=== PATIENT | male | born 1955 | race Caucasian/White ===

== ENCOUNTER → 2018-04-14 14:34 | Outpatient (CLI) | payer OTHER, SELFPAY ==
[2018-04-14 14:52] LABS: International Normalized Ratio 2.6
== END ==
PROVIDERS: Family Provider Family Medicine; PCP Family Medicine; Visit Provider Family Medicine
DX: I48.91 Unspecified atrial fibrillation (principal)
CPT/HCPCS: 85610

== ENCOUNTER → 2018-04-14 14:53 | Outpatient (CLI) | payer OTHER, SELFPAY ==
--- NOTE | 2018-04-14 14:58 | VDLE_ITS ---
Reason For Study: LLE pain RIGHT LEFT CFV is compressible, spontaneous, phasic, GSV is normal. competent and demonstrates normal CFV is compressible, spontaneous, phasic, augmentation. competent, and demonstrates normal Procedure augmentation. Exam performed in department. FV is compressible, spontaneous, phasic, The exam was diagnostic. competent and demonstrates normal A preliminary report was called and/or faxed augmentation. to Dr. Ozuna @ 3:25 pm @ [phone]. POP V is compressible, spontaneous, phasic, PT is currently on anticoagulation competent and demonstrates normal (warfarin). augmentation. T/P Trunk is compressible. PTV is compressible. LT PerV is compressible. NON vascular structure noted in the left medial mid calf area measuring 2.0 x 0.5 cm sag view. Interpretation Summary Deep veins of the left lower extremity are patent and compressible segmentally. There is no evidence of left lower extremity deep vein thrombosis. Valvular competence appears intact within the proximal deep venous system on the left . The left greater saphenous vein appears patent and compressible segmentally. A non-vascular structure is noted in the soft tissues of the left medial calf, measuring 2.0 cm x 2.5 cm. This may represent a hematoma or seroma. Clinical correlation is advised. Ordering Physician: Jah Ozuna Referring Physician: Jah Ozuna Performed By: Suzan Marquez, MELO, RVT
== END ==
PROVIDERS: Family Provider Internal Medicine; PCP Internal Medicine; Visit Provider Family Medicine
DX: M79.662 Pain in left lower leg (principal)
CPT/HCPCS: 93971

== ENCOUNTER 2018-09-13 11:39 | Emergency (ER) | payer OTHER, SELFPAY ==
[2018-09-13 11:41] VITALS: BP 118/72; PULSE 67; RESP 14; TEMP 36.6; O2SAT 95; BMI 32.8
--- NOTE | 2018-09-13 12:09 | RAD_ITS ---
STUDY: X-RAY CHEST REASON FOR EXAM: Male, 62 years old. Chest pain. TECHNIQUE: AP portable upright view of the chest on 2 films. COMPARISON: Portable AP upright chest x-ray March 17, 2016 FINDINGS: Small calcified granuloma again seen in the lateral inferior right base The lungs are otherwise clear and expanded. There is no demonstrated pleural abnormality. There is moderate cardiac enlargement. Sternal cerclage wires are present from a prior sternotomy. Normal mediastinum and dominick. Normal visualized pulmonary arteries. There is stable mild atherosclerotic calcification of the aortic arch, as well as calcification at the right carotid artery bifurcation. There are stable multilevel degenerative changes of the visualized thoracic spine. Normal visualized ribs, clavicles, and shoulders. There is no demonstrated abnormality of the visualized soft tissue structures of the upper abdomen. RAD/Chest 1 View (Portable) IMPRESSION: 1. Prior median sternotomy. Stable cardiac enlargement. No CHF. 2. No acute pneumonic infiltrate. 3. Atherosclerotic calcific plaquing, including stable calcification near the right carotid artery bifurcation Electronically Signed: Glenn Heredia MD at 12:48 EST , Service support ,
--- NOTE | 2018-09-13 12:09 | EKG12_ITS ---
Test Reason : DIZZINESS Blood Pressure : / mmHG Vent. Rate : 064 BPM Atrial Rate : 340 BPM P-R Int : 000 ms QRS Dur : 178 ms QT Int : 470 ms P-R-T Axes : 000 -82 -06 degrees QTc Int : 484 ms Atrial fibrillation Left axis deviation Right bundle branch block Inferior infarct , age undetermined Abnormal ECG Confirmed by MISAEL VIERA, DIANA ([id number]), slot editor WILBERT ERAZO ([id number] on 09/14/2018 3:21:56 PM Referred By: ALDO Confirmed By:DIANA DOUGLAS MD
--- NOTE | 2018-09-13 12:14 | ED.VISSUMM ---
- ER Visit Summary Date of Service: 09/13/18 Chief Complaint: Near syncope History of Present Illness: The patient is a 62 M history of prior syncope. History of CAD prior quadruple bypass in 2002, CHF, valvular heart disease, A. fib on Coumadin, hypertension. Patient has had prior syncopal events before in the past which she felt were secondary to dehydration. He does take Lasix as needed and states he took one this morning. He and his were at an area restaurant having breakfast he felt lightheaded and had a near syncopal event. His eyes rolled back he started to have tremors but he did not fall he was caught by his and a bystander. Prior to the event he denies having any headache, chest pain, shortness of breath or being recently ill. He has had no recent nausea, vomiting, diarrhea or melena. Physical Examination: Older male vital signs are stable afebrile. Current blood pressure 118/72. H EENT exam pupils round reactive light. No signs of trauma. Normal speech. No facial droop. Neck nontender. Trachea midline. Lungs clear to auscultation bilaterally. Heart A. fib irregular rhythm rate about 67. 3/6 systolic ejection murmur. Chest wall nontender. Abdomen soft nontender. Normal bowel sounds no peritoneal signs. No pulsatile mass. Patient is moving all 4 extremities. They are neurovascularly intact. He has equal symmetrical bar pointer strength. Dorsi plantar flexion intact. Calves are nontender without edema. Back nontender. Neurologically is awake alert with no focal motor deficits. NIH score is 0. Test Results: Patient CBC is a white count of 5. Hemoglobin 14. Electrolytes show a normal gap. BUN of 59 previously that was 18. Creatinine 1.69 previously about 1. Troponin normal. He is on Coumadin his INR is 3.1. He did take his Coumadin this morning. EKG shows A. fib rate is 64 with a right bundle branch block and an old inferior ID. This is unchanged from prior EKG from 2016. Chest x-ray shows cardiomegaly and a prior sternotomy but no acute process. This was seen previously. Patient's orthostatic vital signs were negative. His pressure actually improved when he stood up. Emergency Department Course and Treatment: Patient had a near syncopal event. Patient doing well repeat exam at 1443. Drink plenty of fluids at home. Hold off on his Lasix the next several days. Treatment Plan: Fluids and rest. Hold his diuretic. Disposition: Discharge Impression: Acute near syncope Dehydration History of CAD, CABG, valvular heart disease, chronic A. fib Anticoagulated on Coumadin with an INR 3.1. This note was generated with [employer] dictation software. It may contain incorrect words, spelling, and punctuation that were not noted in review of the chart prior to signing ED Disposition - Plan for ED Patient: Chief Complaint: Syncope Referrals: Jah Ozuna [Primary Care Provider] -
--- NOTE | 2018-09-13 12:17 | ED.DCSUM_ITS ---
- ER Visit Summary Date of Service: 09/13/18 Chief Complaint: Near syncope History of Present Illness: The patient is a 62 M history of prior syncope. History of CAD prior quadruple bypass in 2002, CHF, valvular heart disease, A. fib on Coumadin, hypertension. Patient has had prior syncopal events before in the past which she felt were secondary to dehydration. He does take Lasix as needed and states he took one this morning. He and his were at an area restaurant having breakfast he felt lightheaded and had a near syncopal event. His eyes rolled back he started to have tremors but he did not fall he was caught by his and a bystander. Prior to the event he denies having any headache, chest pain, shortness of breath or being recently ill. He has had no recent nausea, vomiting, diarrhea or melena. Physical Examination: Older male vital signs are stable afebrile. Current blood pressure 118/72. H EENT exam pupils round reactive light. No signs of trauma. Normal speech. No facial droop. Neck nontender. Trachea midline. Lungs clear to auscultation bilaterally. Heart A. fib irregular rhythm rate about 67. 3/6 systolic ejection murmur. Chest wall nontender. Abdomen soft nontender. Normal bowel sounds no peritoneal signs. No pulsatile mass. Patient is moving all 4 extremities. They are neurovascularly intact. He has equal symmetrical angle bender strength. Dorsi plantar flexion intact. Calves are nontender without edema. Back nontender. Neurologically is awake alert with no focal motor deficits. NIH score is 0. Test Results: Patient CBC is a white count of 5. Hemoglobin 14. Electrolytes show a normal gap. BUN of 59 previously that was 18. Creatinine 1.69 previously about 1. Troponin normal. He is on Coumadin his INR is 3.1. He did take his Coumadin this morning. EKG shows A. fib rate is 64 with a right bundle branch block and an old inferior OK. This is unchanged from prior EKG from 2016. Chest x-ray shows cardiomegaly and a prior sternotomy but no acute process. This was seen previously. Patient's orthostatic vital signs were negative. His pressure actually improved when he stood up. Emergency Department Course and Treatment: Patient had a near syncopal event. Patient doing well repeat exam at 1443. Drink plenty of fluids at home. Hold off on his Lasix the next several days. Treatment Plan: Fluids and rest. Hold his diuretic. Disposition: Discharge Impression: Acute near syncope Dehydration History of CAD, CABG, valvular heart disease, chronic A. fib Anticoagulated on Coumadin with an INR 3.1. This note was generated with [employer] dictation software. It may contain incorrect words, spelling, and punctuation that were not noted in review of the chart prior to signing ED Disposition - Plan for ED Patient: Chief Complaint: Syncope Referrals: Jah Ozuna [Primary Care Provider] -
[2018-09-13 12:44] VITALS: O2SAT 100
[2018-09-13 12:50] LABS: Absolute Lymphocyte Count 0.46 X10^3/ul (0.83-4.51); Absolute Neutrophil Count 3.9 X10^3/uL (2.0-7.7); Basophil# 0.05 X10^3/uL; Basophil% 0.9 % (0-1); Eosinophil# 0.13 X10^3/uL; Eosinophils% 2.4 % (0-5); Hematocrit 41.4 % (40-54); Hemoglobin 14.4 g/dl (13.0-16.5); Lymphocyte # 0.46 X10^3/ul (4.0); Lymphocyte % 8.5 % (19-41); Mean Corp Hgb Conc 34.8 g/gl (32-36); Mean Corpuscular Volume 103.5 fL (80-94); Mean Platelet Vol. 9.7 fl (6.2-12.0); Monocyte# 0.85 X10^3/uL; Monocyte% 15.7 % (0-10); Neutrophil # 3.92 X10^3/uL (2.7-7.7); Neutrophil % 72.1 % (47-70); Platelet Count 266 K/mm3 (150-450); RBC Distribution Width CV 16.2 % (11.6-14.6); RBC Distribution Width SD 61.9 fl (35.1-43.9); White Blood Count 5.4 K/mm3 (4.4-11.0)
[2018-09-13 12:52] LABS: Differential Indicated SCAN CRITERIA MET; POSITIVE COUNT NO; POSITIVE DIFFERENTIAL YES; POSITIVE MORPHOLOGY NO
[2018-09-13 13:05] LABS: Anion Gap 11 (5-15); BUN 59 mg/dL (7-18); BUN/Creat Ratio 34.9 RATIO (10-20); Calcium,Total 8.5 mg/dL (8.5-10.1); Chloride 107 mmol/L (98-107); Creatinine, Serum 1.69 mg/dL (0.70-1.30); EST Glomerular Filtration Rate 44 mL/min (>60); Est Glom Filt Rate - Afr Amer 53 mL/min (>60); Estimated Creatinine Clearance 42.72 ml/min; Glucose 106 mg/dL (74-106); Potassium 4.8 mmol/L (3.5-5.1); Sodium Level 140 mmol/L (136-145)
[2018-09-13 13:21] LABS: International Normalized Ratio 3.1; Prothrombin Time (Protime)PT. 32.2 SECONDS (11.7-14.9)
[2018-09-13 13:40] VITALS: BP 121/74; PULSE 65; RESP 16; O2SAT 98
[2018-09-13 13:50] VITALS: BP 126/80; BP 130/87; BP 148/78; PULSE 55; PULSE 60; PULSE 78
--- NOTE | 2018-09-13 14:45 | ED.DEP ---
ED Disposition - Plan for ED Patient: Disposition: Home or Assisted Living Chief Complaint: Syncope Instructions: ED Hypotension Orthostatic Referrals: Jah Ozuna [Primary Care Provider] - As Needed Additional Instructions: Plenty of fluids and rest. Monitor your blood pressure the next 24 hours. Hold your Lasix for the next several days. I would only use it if you are having any shortness of breath or swelling in your legs. I think between being somewhat dehydrated and the Lasix that would cause you to almost pass out today.
[2018-09-13 15:05] VITALS: BP 117/76; PULSE 63; RESP 21; O2SAT 97
== END 2018-09-13 15:18 | disposition home or self-care (01) ==
PROVIDERS: Emergency Provider Emergency Medicine; Family Provider Internal Medicine
DX: R55 Syncope and collapse (principal); E86.0 Dehydration; I25.10 Atherosclerotic heart disease of native coronary artery without angina pectoris; I11.0 Hypertensive heart disease with heart failure; I50.9 Heart failure, unspecified; I48.2 Chronic atrial fibrillation; I38 Endocarditis, valve unspecified; I45.10 Unspecified right bundle-branch block; Z79.01 Long term (current) use of anticoagulants; Z79.82 Long term (current) use of aspirin; Z79.899 Other long term (current) drug therapy; I25.2 Old myocardial infarction; Z95.1 Presence of aortocoronary bypass graft
CPT/HCPCS: 71045; 80048; 84484; 85025; 85610; 93005; 99285; J7030; A4216

== ENCOUNTER → 2018-10-19 12:40 | Outpatient (CLI) | payer OTHER, SELFPAY ==
[2018-10-19 12:57] LABS: International Normalized Ratio 1.7; Prothrombin Time (Protime)PT. 20.2 SECONDS (11.7-14.9)
--- OUTSIDE RECORDS SUMMARY | 2019-01-20 22:44 | XMS RPT_ITS ---
:1955 Author Organization [facility] Care Team Providers Name Role Phone Leena Ozuna Attending Unavailable Leena Ozuna Referring Unavailable SulmaLeena Primary Care Unavailable Leena Ozuna Attending Unavailable Leena Ozuna Referring Unavailable Elmer Stuart Primary Care Unavailable Leena Ozuna Attending Unavailable Leena Ozuna Referring Unavailable Leena Ozuna Primary Care Unavailable Elmer Stuart Primary Care Unavailable Henry Mcdowell Attending Unavailable CANDY AVALOS Attending Unavailable CANDY AVALOS Referring Unavailable LEENA OZUNA Referring Unavailable SULMALEENA Referring Unavailable SULMALEENA Referring Unavailable SULMALEENA Referring Unavailable SULMALEENA Referring Unavailable SULMALEENA Referring Unavailable SULMALEENA Referring Unavailable SULMALEENA Referring Unavailable SULMALEENA Referring Unavailable LEENA OZUNA Attending Unavailable CANDY AVALOS Referring Unavailable CANDY AVALOS Referring Unavailable LEENA OZUNA Referring Unavailable LEENA OZUNA Attending Unavailable LEENA OZUNA Referring Unavailable SULMALEENA Referring Unavailable Anupam DAVIS (SHARON) Referring Unavailable SULMA, LEENA Hanks Referring Unavailable SULMA, LEENA Hanks Referring Unavailable SULMALEENA Referring Unavailable SULMALEENA Fishman Referring Unavailable SULMALEENA Fishman Referring Unavailable CANDY AVALOS Attending Unavailable CANDY AVALOS Referring Unavailable DAVIS, M ABELINO (PA-C) Attending Unavailable Anupam DAVIS (PA-C) Referring Unavailable LEENA OZUNA Referring Unavailable LEENA OZUNA Referring Unavailable CANDY AVALOS Attending Unavailable CANDY AVALOS Referring Unavailable Leena Ozuna MD Primary Care Unavailable CANDY AVALOS Attending Unavailable CANDY AVALOS Referring Unavailable Leena Ozuna MD Primary Care Unavailable PROBLEMS PROBLEMS DATE TYPE CONDITION / CODE ATTENDING STATUS SOURCE 10/20/2018 Unknown I48.91 - Unspecified Leena Ozuna Active [place] [facility] / I48.91(ICD-10) Hospital Repository 11/25/2016 Active Essential (primary) NA Active [facility] hypertension / [facility] I10(ICD-10) [place] Rep[facility] 10/19/2018 Active Personal history of NA Active [facility] other drug therapy / [facility] Z92.29(ICD-10) [place] [facility] 10/19/2018 Active 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 / [facility] E78.6(ICD-10) [place] [facility] 12/08/2008 Active Unspecified atrial NA Active [facility] fibrillation / [facility] I48.91(ICD-10) [place] [facility] 04/07/2018 Active Chronic systolic NA Active [facility] (congestive) heart [facility] Main failure / [place] I50.22(ICD-10) Repository 07/21/2006 Active Pure NA Active [facility] hypercholesterolemia Clinic Main , unspecified / [place] E78.00(ICD-10) Repository 03/24/2018 Active Hypercalcemia / NA Active [facility] E83.52(ICD-10) [facility] Main [place] Rep[facility] 04/29/2011 Active Hyperglycemia, NA Active [facility] unspecified / [facility] R73.9(ICD-10) [place] Rep[facility] 03/19/2018 Active Other vitamin B12 NA Active [facility] deficiency anemias / [facility] Main D51.8(ICD-10) [place] Rep[facility] 04/29/2011 Active Atherosclerotic ROBBIE, Active [facility] heart disease of JEWELL E [facility] Other confed[place] salish coronary [place] artery without Repository angina pectoris / I25.10(ICD-10) 03/01/2018 Active Chronic atrial ROBBIE, Active [place] fibrillation / [facility] E Clinic Other I48.2(ICD-10) [place] Rep[facility] 03/01/2018 Active Chronic diastolic ROBBIE, Active [facility] (congestive) heart [facility] Clinic Other failure / [place] I50.32(ICD-10) Repository 04/29/2011 Admitting Unknown / ROBBIE, Active [facility] diagnosis UNK(Unknown) [facility] Repository PROCEDURES PROCEDURES No Procedure Records FoundRESULTS RESULTS PROGRESS Observed: 11/18/2018 Status: COMPLETED Source: [place] 11:07 AM [facility] REPOSITORY HNO ID: [id number] Author: Leena Ozuna Service: (none) Author Type: Physician Type: Progress Notes Filed: 11/18/2018 11:07 AM Note Text: This note was created using Cellesriter. Subjective Aleksey Leon is a 63 year old male. Review of Systems Objective There were no vitals taken for this visit. Physical Exam Assessment and Plan agree PROGRESS Observed: 11/18/2018 Status: COMPLETED Source: [place] 9:15 AM [facility] REPOSITORY HNO ID: [id number] Author: Marci Orozco RN Service: (none) Author Type: (none) Type: Progress Notes Filed: 11/18/2018 9:17 AM Note Text: patient had inr completed at [facility] patients inr is 2.9 (patients inr range is 2.0-3.0) patient is currently taking 2mg Tues,Thurs, Sun and 4mg all other days patients last dose change was on 10/19/18 due to a low level of (dose at that time was 4mg Mon,Wed,Fri and 2mg all other days) patient has had no changes in medication and no missed doses and no change in diet Advised patient to continue on the same dose(s) and that they would only be contacted regarding dosage and follow up instructions after review with provider, if a change is needed. Written instructions given and patient verbalized understanding. Presently scheduled in 4 weeks (pt will call to schedule appt) for follow up INR. PROTIME Collected: 10/19/2018 Status: F Source: [place] 12:15 PM [facility] REPOSITORY TYPE CODE TESTS RESULT OUT OF REFERENCE UNITS RANGE LAB PSEC 9.7-13.0 sec Test PT sent to [facility]. Result Comment: Account Credited HIDE LAB INR 0.9-1.3 Test sent to PT INR [facility]. Result Comment: Account Credited HIDE CBC Collected: 10/19/2018 Status: F Source: [place] 12:15 PM [facility] REPOSITORY TYPE CODE TESTS RESULT OUT OF REFERENCE UNITS RANGE LAB WBC 3.70-11.00 k/uL WBC 7.84 LAB RBC 4.20-6.00 m/uL Low RBC 4.05 LAB HGB 13.0-17.0 g/dL Hemoglobin 14.2 LAB HCT 39.0-51.0 % Hematocrit 43.7 LAB MCV 80.0-100.0 fL MCV High 107.9 LAB MCH 26.0-34.0 pG MCH High 35.1 LAB MCHC 30.5-36.0 g/dL MCHC 32.5 LAB RDWCV 11.5-15.0 % RDW-CV High 16.0 LAB PLTCT 150-400 k/uL Platelet Count 267 LAB MPV 9.0-12.7 fL MPV 9.8 LAB ABSNUC <0.01 k/uL Absolute nRBC <0.01 Performed By: #### CBC, HBA1C, CMP, LIPNF #### [facility] [employer] [address], [place] [id number] HEMOGLOBIN A1C Collected: 10/19/2018 Status: F Source: [place] 12:15 [facility] REPOSITORY TYPE CODE TESTS RESULT OUT OF REFERENCE UNITS RANGE LAB HGBA1C 4.3-5.6 % High Hemoglobin A1c 5.7 Result Comment: [place] Diabetes Association guidelines indicate that patients with HgbA1c in the range 5.7-6.4% are at increased risk for development of diabetes, and intervention by lifestyle modification may be beneficial. HgbA1c greater or equal to 6.5% is considered diagnostic of diabetes. LAB HBA0 mg/dL Est. Average Glucose 117 Result Comment: eAG: (Estimated average glucose) is a calculated value from HgbA1c and is retail service representative of the average blood glucose level in the last 2-3 month period. Performed By: #### CBC, HBA1C, CMP, LIPNF #### [facility] [employer] [address], [place] [address] COMP METABOLIC PANEL Collected: 10/19/2018 Status: F Source: [place] 12:15 [facility] REPOSITORY TYPE CODE TESTS RESULT OUT OF REFERENCE UNITS RANGE LAB TP 6.3-8.0 g/dL Protein, Total 7.3 LAB ALB 3.9-4.9 g/dL Albumin 4.0 LAB CA 8.5-10.2 mg/dL Calcium, Total 10.0 LAB TBIL 0.2-1.3 mg/dL Bilirubin, Total 0.8 LAB ALKP 38-113 U/L Alkaline Phosphatase 76 LAB AST 14-40 U/L AST 25 LAB GLU 74-99 mg/dL Glucose 95 Result Comment: The [place] Diabetes Association (ADA) provides guidance for cutoff values for fasting glucose and random glucose. The ADA defines fasting as no caloric intake for at least 8 hours. Fas ting plasma glucose results between 100 to 125 mg/dL indicate increased risk for diabetes (prediabetes). Fasting plasma glucose results greater than or equal to 126 mg/dL meet the criteria for diagnosis of diabetes. In the absence of unequivocal hyperglycemia, results should be confirmed by repeat testing. In a patient with classic symptoms of hyperglycemia or hyperglycemic crisis, random plasma glucose results greater than or equal to 200 mg/dL meet the criteria for diagnosis of diabetes. Reference: Standards of Medical Care in Diabetes 2016, [place] Diabetes Association. Diabetes Care. 2016.39(Suppl 1). LAB BUN 9-24 mg/dL BUN 18 LAB CRET 0.73-1.22 mg/dL Creatinine 1.00 LAB NA 136-144 mmol/L Sodium 140 LAB K 3.7-5.1 mmol/L Potassium 4.8 LAB CL 97-105 mmol/L Chloride 101 LAB CO2 22-30 mmol/L CO2 24 LAB AGAP 9-18 mmol/L Anion Gap 15 LAB ALT 10-54 U/L ALT 17 LAB GFRAA eGFR- Amer. >60 LAB GFRNAA . eGFR-All Other Races >60 Result Comment: eGFR (Estimated GFR) Units of measure: mL/min/1.73 meters squared eGFR is derived from the reexpressed MDRD Study equation using the following parameters: serum creatinine, age, gender and race. The creatinine assay has been calibrated to be traceable to IDMS. An eGFR <60 mL/min/1.73m2 for >3 months is consistent with chronic kidney disease. Refer to KDOQI guidelines for clinical interpretation. In patients with unstable renal function, e.g. those with acute kidney injury, the eGFR may not accurately reflect actual GFR. Performed By: #### CBC, HBA1C, CMP, LIPNF #### [facility] [address] [place], [place] [address] LIPID PANEL, NONFAST Collected: 10/19/2018 Status: F Source: [place] 12:15 PM [facility] REPOSITORY TYPE CODE TESTS RESULT OUT OF REFERENCE UNITS RANGE LAB CHOLNF <200 mg/dL Total Cholesterol NF 194 Result Comment: <200 mg/dL, Desirable 200-239 mg/dL, Borderline high >239 mg/dL, High LAB TRIGNF <150 mg/dL Triglycerides, NF 121 Result Comment: <150 mg/dL, Normal 150-199 mg/dL, Borderline high 200-499 mg/dL, High >499 mg/dL, Very high LAB HDLNF >39 mg/dL HDL Cholesterol, NF 51 Result Comment: 40-59 mg/dL, Acceptable >59 mg/dL, High: Negative risk factor for coronary heart disease <40 mg/dL, Low: Positive risk factor for coronary heart disease LAB LDLNF <100 mg/dL LDL Cholesterol, High NF 119 Result Comment: <100 mg/dL, Optimal 100-129 mg/dL, Near optimal/above optimal 130-159 mg/dL, Borderline high 160-189 mg/dL, High >189 mg/dL, Very high Secondary prevention optimal LDL Cholesterol levels are recommended to be < 70 mg/dL LAB NOHDLN <130 mg/dL High Non HDL Chol, 143 NF Result Comment: <130 mg/dL, Optimal 130-159 mg/dL, Near optimal/above optimal 160-189 mg/dL, Borderline high 190-219 mg/dL, High >219 mg/dL, Very high Secondary prevention optimal non HDL Cholesterol levels are recommended to be < 100 mg/dL LAB VLDLNF <30 mg/dL VLDL Cholesterol, NF 24 LAB TCHDLN <5.10 mg/dL T Chol/HDL Ratio NF 3.80 LAB LDLHDN <2.54 mg/dL LDL/HDL Ratio, NF 2.33 Result Comment: Reference: 1. National Cholesterol Education Program ATP III Guideline At-A-Glance Quick Desk Reference: National Heart, Lung, and Blood [place]. National Institutes of Health. 2001: NIH Publication No. 01-3305. 2. An International Atherosclerosis Society position paper: global recommendations for the management of dyslipidemia: executive summary, Atherosclerosis. 2014: 232(2):410-413. Performed By: #### CBC, HBA1C, CMP, LIPNF #### [facility] [address] [address] PROGRESS Observed: 10/19/2018 Status: COMPLETED Source: [place] 11:48 AM [facility] REPOSITORY HNO ID: [id number] Author: Anupam Roca (Sharon) Ryan Service: (none) Author Type: Physician Wheat Shipper Type: Progress Notes Filed: 10/19/2018 12:44 PM Note Text: 62 year old male with c/o cough over last 10 days. Fever 101F yesterday. None today. Feels achy in chest. Stomach sore. Started with drippy nose and sinus pressure. Was in [facility] with red tide last week, home yesterday. No hx pneumonia. HISTORIES FAMILY HISTORY Problem Relation Age of Onset - Heart Father mi age 70 - Prostate Cancer Father in his late 70's - Alzheimer's Disease Mother - Heart Brother PAST MEDICAL HISTORY Diagnosis Date - Arrhythmia - Atrial fibrillation (HCC) - Coronary atherosclerosis of unspecified type of vessel, confed[place] salish or graft - Difficult intubation requires fiberoptic intubation - Diverticulosis of colon (without mention of hemorrhage) - Family history of prostate cancer - Nonspecific elevation of levels of transaminase or lactic acid dehydrogenase (LDH) 04/26/2010 - Obstructive sleep apnea - Pain in joint, lower leg 09/18/2006 - Pure hypercholesterolemia - Ulcerative colitis, unspecified - Unspecified essential hypertension PAST SURGICAL HISTORY Procedure Laterality Date - COLONOSCOP W/ OR W/O BRSH SPEC 10/04, 11/27/2005 Colonoscopy - COLONOSCOP W/ OR W/O BRSH SPEC 03/21/2008 Colonoscopy - COLONOSCOP W/ OR W/O BRSH SPEC 05/13/2012 Colonoscopy repeat 18 months - COLONOSCOP W/ OR W/O BRSH SPEC 06/21/15 Colonoscopy - COLONOSCOP W/ OR W/O BRSH SPEC 08/10/2017 repeat 5 years - COLONOSCOPY W/BX 04/28/07 - HEART SURGERY HX - PAST SURGICAL HISTORY OF 04/2003 heart surgery - SIGMOIDOSCOPY FLEX DIAG 1983, 03/10/1996 Sigmoidoscopy Social History Marital status: Spouse name: Fariha Years of education: Number of children: 0 Occupational History Occupation Employer Comment [employer]* Social History Main Topics Smoking status: Former Smoker Packs/day: 0.00 Years: 0.00 Quit date: 04/02/2004 Smokeless tobacco: Never Used Alcohol use: No Drug use: No Sexual activity: Yes Partners with: Female ACTIVE PROBLEM LIST Ulcerative Colitis (Hcc) Coronary Atherosclerosis Pure Hypercholesterolemia Essential Hypertension Atrial Fibrillation (Hcc) Hyperglycemia Ashd (Arteriosclerotic Heart Disease) Gauri (Obstructive Sleep Apnea) Anticoagulation Goal of Inr 2 to 3 Anemia Due to Vitamin B12 Deficiency Ulcerative Chronic Pancolitis Without Complications (Hcc) Obesity (Bmi 30.0-34.9) Current Outpatient Prescriptions: aspirin, enteric coated 81 mg ORAL EC tablet Take 1 tablet by mouth once daily. Disp: Rfl: 0 azaTHIOprine (IMURAN) 50 mg tablet Take 3 tablets by mouth once daily. (Patient taking differently: Take 100 mg by mouth once daily. ) Disp: 270 tablet Rfl: 3 COMPOUNDED PRESCRIPTION Protime Dx:I48.91 Standing order: monthly and prn Fax results to Dr. Stuart: [phone] Disp: 1 Each Rfl: 99 COMPOUNDED PRESCRIPTION Standing order:PATIENT/INR: A. FibFax to [phone] Disp: 1 Each Rfl: 0 CPAP 1 Device. and supplies use as directed. Dx: GAURI Disp: 1 Each Rfl: 0 cyanocobalamin (VITAMIN B-12) 1,000 mcg tab Take 1 tablet 4 days per week Disp: Rfl: folic acid 1 mg tablet Take 1 tablet by mouth once daily. Disp: 90 tablet Rfl: 3 furosemide (LASIX) 40 mg tablet Take 1 tablet by mouth once daily. Disp: 30 tablet Rfl: 5 Garlic 1,000 mg cap Take by mouth once daily. Disp: Rfl: labetalol (TRANDATE) 200 mg tablet Take 1 tablet by mouth twice daily. Disp: 180 tablet Rfl: 3 lisinopril (PRINIVIL) 10 mg tablet Take 1 tablet by mouth once daily. Disp: 90 tablet Rfl: 3 [place]-3 Fatty Acids (FISH OIL) 500 mg cap Take 2 capsules by mouth once daily. Disp: 180 capsule Rfl: 3 potassium acetate as directed. takes 1 tablet 3 times per week Disp: Rfl: rosuvastatin (CRESTOR) 5 mg tablet Take 1 tablet every M, W and . Disp: 39 tablet Rfl: 3 warfarin (COUMADIN) 2 mg tablet Take 2 mg Tues and 4 mg all other days or as directed. Disp: Rfl: warfarin (COUMADIN) 4 mg tablet Take 2 mg Tues and 4 mg all other days or as directed. (Patient taking differently: Take 4 mg Tues, Thurs, Sat and 2 mg all other days or as directed. ) Disp: 90 tablet Rfl: 3 No current facility-administered medications for this visit. BP CONTROLLED (<130/80) due on 1971 LDL CHOLESTEROL due on 07/17/2018 EXAM: OBJECTIVE: BP 142/88 Pulse 67 Temp 37.2 ?C (99 ?F) Resp 20 Wt 103.9 kg (229 lb) SpO2 98% BMI 34.82 kg/m? General appearance: Pleasant older male in no acute distress. Hash cough noted. Respirations: regular, unlabored Color: pink to lips and nailbeds, normal turgor Skin: warm, dry, no unusual rashes or lesions Head: Normocephalic Eyes: sclerae and conjunctivae without injection or exudate, PERRLA, EOMI, corneal light reflex symmetric bilaterally Ears: TM's are clear/ vale bilaterally with normal landmarks, no swelling or deformity ear canal or external ear Nose/Sinuses: Nose patent. No turbinate swelling. Active exudate: none. Maxillary and frontal sinuses nontender to percussion. Oropharynx: oral membranes are moist. Lips, mucosa, and tongue free from lesions. Gums without inflammation. Posterior pharynx o injection, no exudate, no tonsillar hypertrophy. Neck: Neck supple, no lymphadenopathy; thyroid without mass or tenderness. Chest: normally shaped, equal expansion with breaths. Lungs: Lungs clear to auscultation and percussion. No crackles or wheezes. Heart: RRR without murmur, gallop, or rubs. S1 and S2 normal. ASSESSMENT/PLAN: 1. Cough - ICD9: 786.2, ICD10: R05 (primary diagnosis) Fever 101F after 10days sx: risk atypical pneumonia - DOXYCYCLINE MONOHYDRATE 100 MG TABLET - PROMETHAZINE-DM 6.25 MG-15 MG/5 ML SYRUP 2. Atrial fibrillation, unspecified type (HCC) - ICD9: 427.31, ICD10: I48.91 Controlled rate 3. Essential hypertension - ICD9: 401.9, ICD10: I10 - suboptimal control - Recommended regular aerobic exercise. - Recommend home blood pressure monitoring, to bring results in on next visit - Goal of BP <130/80 - COMP METABOLIC PANEL 4. Hyperglycemia - ICD9: 790.29, ICD10: R73.9 - COMP METABOLIC PANEL - LIPID PANEL, NONFASTING - HGB A1C 5. ASHD (arteriosclerotic heart disease) - ICD9: 414.00, ICD10: I25.10 asymptomatic 6. Ulcerative chronic pancolitis without complications (HCC) - ICD9: 556.6, ICD10: K51.00 Controlled. Reduced immuran on his own. Sees Dr. Maravilla. 7. Immunosuppressed status (HCC) - ICD9: 279.9, ICD10: D89.9 8. History of Coumadin therapy - ICD9: V58.61, ICD10: Z92.29 - CBC 9. Low HDL (under 40) - ICD9: 272.5, ICD10: E78.6 - Encouraged following a low fat, low cholesterol diet. - Encouraged following a low carbohydrate, healthy oil intake diet. - LIPID PANEL, NONFASTING SHARON FrancoisOV Observed: 10/19/2018 Status: COMPLETED Source: [place] 11:00 AM [facility] REPOSITORY Office Visit (FAMPWS) ALEKSEY LEON ([id number]) 1955 Date Time Provider Department 10/19/18 11:00 AM Anupam DAVIS) FAMPWS During your visit today, we recorded the following information about you: Temperature Pulse Respiration Blood pressure 99 degrees 67/minute 20/minute 142/88 Weight 103.9 kg Anupam Davis PA-C 10/19/2018 12:44 PM Signed 62 year old male with c/o cough over last 10 days. Fever 101F yesterday. None today. Feels achy in chest. Stomach sore. Started with drippy nose and sinus pressure. Was in [facility] with [facility] last week, home yesterday. No hx pneumonia. HISTORIES FAMILY HISTORY Problem Relation Age of Onset - Heart Father mi age 70 - Prostate Cancer Father in his late 70's - Alzheimer's Disease Mother - Heart Brother PAST MEDICAL HISTORY Diagnosis Date - Arrhythmia - Atrial fibrillation (HCC) - Coronary atherosclerosis of unspecified type of vessel, confed[place] sal[place] or graft - Difficult intubation requires fiberoptic intubation - Diverticulosis of colon (without mention of hemorrhage) - Family history of prostate cancer - Nonspecific elevation of levels of transaminase or lactic acid dehydrogenase (LDH) 04/26/2010 - Obstructive sleep apnea - Pain in joint, lower leg 09/18/2006 - Pure hypercholesterolemia - Ulcerative colitis, unspecified - Unspecified essential hypertension PAST SURGICAL HISTORY Procedure Laterality Date - COLONOSCOP W/ OR W/O BRSH SPEC 10/04, 11/27/2005 Colonoscopy - COLONOSCOP W/ OR W/O BRSH SPEC 03/21/2008 Colonoscopy - COLONOSCOP W/ OR W/O BRSH SPEC 05/13/2012 Colonoscopy repeat 18 months - COLONOSCOP W/ OR W/O BRSH SPEC 06/21/15 Colonoscopy - COLONOSCOP W/ OR W/O BRSH SPEC 08/10/2017 repeat 5 years - COLONOSCOPY W/BX 04/28/07 - HEART SURGERY HX - PAST SURGICAL HISTORY OF 04/2003 heart surgery - SIGMOIDOSCOPY FLEX DIAG 1983, 03/10/1996 Sigmoidoscopy Social History Marital status: Spouse name: Fariha Years of education: Number of children: 0 Occupational History Occupation Employer Comment [employer]* Social History Main Topics Smoking status: Former Smoker Packs/day: 0.00 Years: 0.00 Quit date: 04/02/2004 Smokeless tobacco: Never Used Alcohol use: No Drug use: No Sexual activity: Yes Partners with: Female ACTIVE PROBLEM LIST Ulcerative Colitis (Hcc) Coronary Atherosclerosis Pure Hypercholesterolemia Essential Hypertension Atrial Fibrillation (Hcc) Hyperglycemia Ashd (Arteriosclerotic Heart Disease) Gauri (Obstructive Sleep Apnea) Anticoagulation Goal of Inr 2 to 3 Anemia Due to Vitamin B12 Deficiency Ulcerative Chronic Pancolitis Without Complications (Hcc) Obesity (Bmi 30.0-34.9) Current Outpatient Prescriptions: aspirin, enteric coated 81 mg ORAL EC tablet Take 1 tablet by mouth once daily. Disp: Rfl: 0 azaTHIOprine (IMURAN) 50 mg tablet Take 3 tablets by mouth once daily. (Patient taking differently: Take 100 mg by mouth once daily. ) Disp: 270 tablet Rfl: 3 COMPOUNDED PRESCRIPTION Protime Dx:I48.91 Standing order: monthly and prn Fax results to Dr. Stuart: [phone] Disp: 1 Each Rfl: 99 COMPOUNDED PRESCRIPTION Standing order:PATIENT/INR: Kathi camacho [phone] Disp: 1 Each Rfl: 0 CPAP 1 Device. and supplies use as directed. Dx: GAURI Disp: 1 Each Rfl: 0 cyanocobalamin (VITAMIN B-12) 1,000 mcg tab Take 1 tablet 4 days per week Disp: Rfl: folic acid 1 mg tablet Take 1 tablet by mouth once daily. Disp: 90 tablet Rfl: 3 furosemide (LASIX) 40 mg tablet Take 1 tablet by mouth once daily. Disp: 30 tablet Rfl: 5 Garlic 1,000 mg cap Take by mouth once daily. Disp: Rfl: labetalol (TRANDATE) 200 mg tablet Take 1 tablet by mouth twice daily. Disp: 180 tablet Rfl: 3 lisinopril (PRINIVIL) 10 mg tablet Take 1 tablet by mouth once daily. Disp: 90 tablet Rfl: 3 [place]-3 Fatty Acids (FISH OIL) 500 mg cap Take 2 capsules by mouth once daily. Disp: 180 capsule Rfl: 3 potassium acetate as directed. takes 1 tablet 3 times per week Disp: Rfl: rosuvastatin (CRESTOR) 5 mg tablet Take 1 tablet every M, W and . Disp: 39 tablet Rfl: 3 warfarin (COUMADIN) 2 mg tablet Take 2 mg Tues and 4 mg all other days or as directed. Disp: Rfl: warfarin (COUMADIN) 4 mg tablet Take 2 mg Tues and 4 mg all other days or as directed. (Patient taking differently: Take 4 mg Tues, Thurs, Sat and 2 mg all other days or as directed. ) Disp: 90 tablet Rfl: 3 No current facility-administered medications for this visit. BP CONTROLLED (<130/80) due on 1971 LDL CHOLESTEROL due on 07/17/2018 EXAM: OBJECTIVE: BP 142/88 Pulse 67 Temp 37.2 ?C (99 ?F) Resp 20 Wt 103.9 kg (229 lb) SpO2 98% BMI 34.82 kg/m? General appearance: Pleasant older male in no acute distress. Hash cough noted. Respirations: regular, unlabored Color: pink to lips and nailbeds, normal turgor Skin: warm, dry, no unusual rashes or lesions Head: Normocephalic Eyes: sclerae and conjunctivae without injection or exudate, PERRLA, EOMI, corneal light reflex symmetric bilaterally Ears: TM's are clear/ vale bilaterally with normal landmarks, no swelling or deformity ear canal or external ear Nose/Sinuses: Nose patent. No turbinate swelling. Active exudate: none. Maxillary and frontal sinuses nontender to percussion. Oropharynx: oral membranes are moist. Lips, mucosa, and tongue free from lesions. Gums without inflammation. Posterior pharynx o injection, no exudate, no tonsillar hypertrophy. Neck: Neck supple, no lymphadenopathy; thyroid without mass or tenderness. Chest: normally shaped, equal expansion with breaths. Lungs: Lungs clear to auscultation and percussion. No crackles or wheezes. Heart: RRR without murmur, gallop, or rubs. S1 and S2 normal. ASSESSMENT/PLAN: 1. Cough - ICD9: 786.2, ICD10: R05 (primary diagnosis) Fever 101F after 10days sx: risk atypical pneumonia - DOXYCYCLINE MONOHYDRATE 100 MG TABLET - PROMETHAZINE-DM 6.25 MG-15 MG/5 ML SYRUP 2. Atrial fibrillation, unspecified type (HCC) - ICD9: 427.31, ICD10: I48.91 Controlled rate 3. Essential hypertension - ICD9: 401.9, ICD10: I10 - suboptimal control - Recommended regular aerobic exercise. - Recommend home blood pressure monitoring, to bring results in on next visit - Goal of BP <130/80 - COMP METABOLIC PANEL 4. Hyperglycemia - ICD9: 790.29, ICD10: R73.9 - COMP METABOLIC PANEL - LIPID PANEL, NONFASTING - HGB A1C 5. ASHD (arteriosclerotic heart disease) - ICD9: 414.00, ICD10: I25.10 asymptomatic 6. Ulcerative chronic pancolitis without complications (HCC) - ICD9: 556.6, ICD10: K51.00 Controlled. Reduced immuran on his own. Sees Dr. Maravilla. 7. Immunosuppressed status (HCC) - ICD9: 279.9, ICD10: D89.9 8. History of Coumadin therapy - ICD9: V58.61, ICD10: Z92.29 - CBC 9. Low HDL (under 40) - ICD9: 272.5, ICD10: E78.6 - Encouraged following a low fat, low cholesterol diet. - Encouraged following a low carbohydrate, healthy oil intake diet. - LIPID PANEL, NONFASTING M Abelino Davis PA-C M Abelino Davis, PA-C 10/19/2018 12:01 PM Signed Get plenty of rest. Force fluids daily with water and juices. Nasal saline spray may help to keep nose open and moist: 2- 3 squirts each side every few hours. This also help to rinse out virus and bacteria causing infection. Cool mist humidifier in room during sleep. May use OTC Tylenol or Ibuprofen as direct for discomfort. For sore throat, warm salt water gargles, Chlorseptic spray, lozenges or other OTC sore throat remedies may help. Decongestants such as plain Sudafed or with expectorant such as Mucinex D may help with nasal stuffiness or facial and sinus pressure. Generics are fine. These are over the counter but require an adult signature. Oxymetolazine nasal decongestants (Afrin, Dristan, Atif's) may also help (in place of oral decongestants) but should not be used longer than 48-72 hours due to potential rebound congestion. OTC antihistamines such Benadryl (make cause drowsiness) or Zyrtec/ Clariten/ Ling (non-drowsy) may help watery nasal drainage though they are generally not recommended because they dry mucus and make it sticky. The flow of mucus is important to help your body rid the virus. If cough keeps you awake at night, try OTC remedies first, such as Nyquil, Delsym, Atif's 44 or Mucinex DM. If this doesn't help you sleep, call the office for a prescription. Be careful if you are combining cough and cold medications that you aren't doubling the medicines. If you aren't sure: ask the pharmacist for help. Cough or sneeze into your sleeve to prevent spread of infected secretions. Wash your hands frequently. Try not to cough or sneeze on surfaces others might touch. If symptoms fail to improve in 5-7 days, fever > 100.5F, general worsening, or other concerning symptoms, return to [facility] or Leena Ozuna MD. Doxycycline as directed per prescription. Please review information provided by pharmacy on possible side effects and interactions. Doxycycline may interfere with your control and may cause effects on a developing fetus, so it is important to use another form of control protection in addition to the pill. Do not take this medication with calcium or magnesium products such as antacids or supplements. They will bind the antibiotic and make it less effective. If you should breakout in a rash, stop the medicine and call the office. Any antibiotic has the potential to cause diarrhea due to alteration in the normal bacterial eric of the gut. This can be reduced by eating yogurt with active cultures daily while on the medication. If diarrhea becomes severe (watery, large volumes or more than 3-4/day) call the office. If you do not like yogurt, ask the pharmacist for a probiotic supplement such as lactobacillus or acidophillus. Women may experience yeast vaginitis due to alteration in the vaginal eric. Symptoms include vaginal itching, irritation, and often a clumpy white discharge. If this occurs, there are several effective over the counter remedies available, including one-dose treatments. If these are unsuccessful, call the office. Antibiotics may interfer with control. If you are on oral contraceptives, use another form of protection (condoms, foams, jellies, diaphragm) throught the end of whatever pill pack you are on in 10 days. Referring Provider: SELF [[id number]] Allergies As of Date: 10/19/2018 Noted Allergy Reaction PENICILLINS 09/18/2005 4 - Hives SULFA (SULFONAMIDE ANTIBIOTICS) 09/18/2005 5 - Intolerance Comments: can not remember the side effect CRESTOR (ROSUVASTATIN CALCIUM) 01/21/2011 14 - Other: See Comments Comments: Myalgias LIPITOR (ATORVASTATIN CALCIUM) 04/29/2011 14 - Other: See Comments Comments: heavy legs NORVASC (AMLODIPINE BESYLATE) 11/18/2011 5 - Intolerance Comments: stasis edema Date Reviewed: 10/19/2018 Reviewed by: Anupam Davis - Fully Assessed Reason for Visit: Cough [28] Cmt: not sleeping well at hs d/t cough X 7-10 days, T 101 yesterday Reason For Visit History Recorded Primary Visit Diagnosis:Cough [R05] Other Visit Diagnoses:Atrial fibrillation, unspecified type (HCC) [I48.91] Essential hypertension [I10] Hyperglycemia [R73.9] ASHD (arteriosclerotic heart disease) [I25.10] Ulcerative chronic pancolitis without complications (HCC) [K51.00] Immunosuppressed status (HCC) [D89.9] History of Coumadin therapy [Z92.29] Low HDL (under 40) [E78.6] Order(s):CBC [SQCBC] Order #: [id number] FUTURE COMP METABOLIC PANEL [SQCMP] Order #: [id number] FUTURE LIPID PANEL, NONFASTING [SQLIPNF] Order #: [id number] FUTURE HGB A1C [[id number]] Order #: [id number] FUTURE doxycycline monohydrate 100 mg tabletTake 1 tablet by mouth twice daily.Disp: 20 tabletRfl: 0 Promethazine-DM (PHENERGAN-DM) 6.25-15 mg/5 mL syrupTake 5 mL by mouth four times daily as needed.Disp: 120 mLRfl: 0 Prescriptions as of 10/19/2018 Sig: ASPIRIN 81 MG TABLET,DELAYED * Take 1 tablet by mouth once d* AZATHIOPRINE 50 MG TABLET Take 3 tablets by mouth once * Patient taking differently: Take 100 mg by mouth once marisabel* COMPOUNDED PRESCRIPTION Protime Dx:I48.91 Standing o* COMPOUNDED PRESCRIPTION Standing order: PATIENT/INR:* CPAP 1 Device. and supplies use as* CYANOCOBALAMIN (VIT B-12) 1,0* Take 1 tablet 4 days per week FOLIC ACID 1 MG TABLET Take 1 tablet by mouth once d* FUROSEMIDE 40 MG TABLET Take 1 tablet by mouth once d* GARLIC 1,000 MG CAPSULE Take by mouth once daily. LABETALOL 200 MG TABLET Take 1 tablet by mouth twice * LISINOPRIL 10 MG TABLET Take 1 tablet by mouth once d* OMEGA-3 FATTY ACIDS 500 MG CA* Take 2 capsules by mouth once* POTASSIUM ACETATE-FOR TPN as directed. takes 1 tablet 3* ROSUVASTATIN 5 MG TABLET Take 1 tablet every M, W and * WARFARIN 2 MG TABLET Take 2 mg Tues and 4 mg all o* WARFARIN 4 MG TABLET Take 2 mg Tues and 4 mg all o* Patient taking differently: Take 4 mg Tues, Thurs, Sat an* DOXYCYCLINE MONOHYDRATE 100 M* Take 1 tablet by mouth twice * PROMETHAZINE-DM 6.25 MG-15 MG* Take 5 mL by mouth four times* Problem List As Of Date 10/19/2018 Noted Resolved Ulcerative colitis (HCC) [K51.90] INVALID FOR* More... Coronary atherosclerosis [I25.10] PURE HYPERCHOLESTEROLEM [E78.00] Essential hypertension [I10] More... Pain in joint, lower leg [M25.569] INVALID FOR*12/07/2016 ATRIAL FIBRILLATION [I48.91] INVALID FOR* Nonspecific elevation of levels of transaminase*INVALID FOR*12/07/2016 Myalgia [M79.10] INVALID FOR*12/07/2016 Hyperglycemia [R73.9] INVALID FOR* ASHD (arteriosclerotic heart disease) [I25.10] INVALID FOR* GAURI (obstructive sleep apnea) [G47.33] INVALID FOR* Anticoagulation goal of INR 2 to 3 [Z51.81, Z79*INVALID FOR* Anemia due to vitamin B12 deficiency [D51.9] INVALID FOR* Ulcerative chronic pancolitis without complicat*INVALID FOR* More... Obesity (BMI 30.0-34.9) [E66.9] INVALID FOR* Other instructions from your clinician: Get plenty of rest. Force fluids daily with water and juices. Nasal saline spray may help to keep nose open and moist: 2-3 squirts each side every few hours. This also help to rinse out virus and bacteria causing infection. Cool mist humidifier in room during sleep. May use OTC Tylenol or Ibuprofen as direct for discomfort. For sore throat, warm salt water gargles, Chlorseptic spray, lozenges or other OTC sore throat remedies may help. Decongestants such as plain Sudafed or with expectorant such as Mucinex D may help with nasal stuffiness or facial and sinus pressure. Generics are fine. These are over the counter but require an adult signature. Oxymetolazine nasal decongestants (Afrin, Dristan, Atif's) may also help (in place of oral decongestants) but should not be used longer than 48-72 hours due to potential rebound congestion. OTC antihistamines such Benadryl (make cause drowsiness) or Zyrtec/ Clariten/ Ling (non-drowsy) may help watery nasal drainage though they are generally not recommended because they dry mucus and make it sticky. The flow of mucus is important to help your body rid the virus. If cough keeps you awake at night, try OTC remedies first, such as Nyquil, Delsym, Atif's 44 or Mucinex DM. If this doesn't help you sleep, call the office for a prescription. Be careful if you are combining cough and cold medications that you aren't doubling the medicines. If you aren't sure: ask the pharmacist for help. Cough or sneeze into your sleeve to prevent spread of infected secretions. Wash your hands frequently. Try not to cough or sneeze on surfaces others might touch. If symptoms fail to improve in 5-7 days, fever > 100.5F, general worsening, or other concerning symptoms, return to [facility] or Leena Ozuna MD. Doxycycline as directed per prescription. Please review information provided by pharmacy on possible side effects and interactions. Doxycycline may interfere with your control and may cause effects on a developing fetus, so it is important to use another form of control protection in addition to the pill. Do not take this medication with calcium or magnesium products such as antacids or supplements. They will bind the antibiotic and make it less effective. If you should breakout in a rash, stop the medicine and call the office. Any antibiotic has the potential to cause diarrhea due to alteration in the normal bacterial eric of the gut. This can be reduced by eating yogurt with active cultures daily while on the medication. If diarrhea becomes severe (watery, large volumes or more than 3-4/day) call the office. If you do not like yogurt, ask the pharmacist for a probiotic supplement such as lactobacillus or acidophillus. Women may experience yeast vaginitis due to alteration in the vaginal eric. Symptoms include vaginal itching, irritation, and often a clumpy white discharge. If this occurs, there are several effective over the counter remedies available, including one-dose treatments. If these are unsuccessful, call the office. Antibiotics may interfer with control. If you are on oral contraceptives, use another form of protection (condoms, foams, jellies, diaphragm) throught the end of whatever pill pack you are on in 10 days. Prescriptions ordered this encounter Disp Refills Start End DOXYCYCLINE MONOHYDRATE 100 MG TABLET 20 t* 0 10/19/2018 Route: ORAL Sig: Take 1 tablet by mouth twice daily. PROMETHAZINE-DM 6.25 MG-15 MG/5 ML S* 120 * 0 10/19/2018 Route: ORAL Sig: Take 5 mL by mouth four times daily as needed. Encounter Status:Closed by Anupam DAVIS PA-C on 10/19/18 SHERRIE Observed: 10/19/2018 Status: COMPLETED Source: [facility] 10:45 AM [facility] REPOSITORY Office Visit ([facility]) ALEKSEY LEON ([id number]) 1955 M Date Time Provider Department 10/19/18 10:45 AM CANDY AVALOS [facility] During your visit today, we recorded the following information about you: Pulse Blood pressure Weight Height 69/minute 165/100 104 kg 1.727 m Candy Avalos MD 10/19/2018 10:29 AM Signed LIFESTYLE CHANGE A healthy lifestyle is the most important component of your overall treatment plan. Please give serious thought to the following areas and commit to making buttermaker continuous churn changes. EAT A WHOLE FOOD, PLANT BASED DIET The nutrition your body gets is more important than the medicine you take. What matters most is the overall way you eat. We encourage you to minimize the use of animal products (which include dairy and all meats except fatty fish) and use whole, unprocessed plant foods to provide your protein, vitamins and other nutrients. We have a lot of information to share with you on this topic. This is not a diet. It is a way of life that you will keep with you. EXERCISE REGULARLY It is not important to spend hours in the gym, lifting weights and perspiring heavily. A total of 2-3 hours per week of aerobic (causing you to be moderately short of breath) exercise is sufficient to improve your health. Talk to us before you begin a new exercise program, if you have heart disease or experience shortness of breath or chest pain. REDUCE STRESS Chronic emotional and physical stress leads to disease. Ways of reducing stress include meditation, visualization, prayer, yoga and other forms of relaxation therapy. Consistency is the medina. Find a technique that works for you and do it every day. CULTIVATE RELATIONSHIPS Loneliness and isolation have a major negative impact on health. Seek out others who can love, care for and nurture you. Avoid hurtful relationships. MAINTAIN IDEAL BODY WEIGHT The best way to do this is to do all the things above. Our bodies naturally find the right weight if we keep moving and feed ourselves the right food. If your BMI is greater than 25, we strongly recommend a referral to a weight management program. Please speak to us or your family physician about available programs. AVOID NICOTINE IN ALL FORMS This includes all tobacco products, whether chewed, smoked, vaped, or rubbed on the skin. Smoking cessation programs, which can make use of tobacco substitutes, medications to suppress cravings and behavior management, are available. Please contact your family physician about programs in your area. Candy Avalos MD 10/20/2018 8:18 AM Signed PERTINENT CARDIAC HISTORY ASHD - CABGx4 2002 Atrial fib - permanent HTN HL GAURI - on CPAP Syncope - vasovagal RBBB ADHERENCE TO GUIDELINES PORSCHE-I or ARB for HF with prior LVEF<40 (NQF 0081) - met ASA or Plavix for ASHD (NQF 0067) - met Beta christina for ASHD with prior MT or prior LVEF<40 (NQF 0070) - met Beta chrsitina for HF with prior LVEF<40 (NQF 0083) - N/A PORSCHE-I or ARB for ASHD with DM or prior LVEF<40 (NQF 0066) - N/A Statin therapy for ASHD or FHL or DM - met BMI documented and plan if >25 (NQF 0421) - lifestyle recommendation form Tobacco use screening and referral (NQF 0028) - lifestyle recommendation form Recommendation for whole food, plant based diet - lifestyle recommendation form CLINICAL IMPRESSION/PLAN: Aleksey eLon has stable coronary disease. He is advised to continue his current medication. Atrial fibrillation is permanent and rate is well controlled. He's had no recurrence of his vasovagal syncope. His most recent echocardiogram showed improvement in right ventricular size and function. Left ventricular function is globally normal. He has significant tricuspid insufficiency with mild pulmonary hypertension, although has no signs of right heart failure at this time. We will need to watch this closely. Diuretics will be held for the time being. There is no evidence of progression of his conduction disease. He was advised to contact me if he has recurrent syncope or near syncope. We will consider implantable loop recorder. Blood pressure is inadequately controlled. He has been on much higher doses of labetalol in the past. I'm concerned about the possibility of conduction disease. I've asked him to return to a 200 milligrams twice daily dose of labetalol but update me with vital signs later this week. We may need to increase PORSCHE inhibitor and go to a smaller dose of labetalol twice daily if his heart rate becomes unacceptably low. I recommend he be seen in 8 months or as needed. Written and verbal health teaching given to patient, patient verbalizes understanding and agrees with treatment plan. DIAGNOSIS FOR VISIT: ASHD Atrial fibrillation HISTORY OF PRESENT ILLNESS Aleksey Leon returns for follow-up of his coronary disease and atrial fibrillation. He reports improvement in exercise tolerance. He's had no recurrent syncope. He currently has a cold. He denies chest discomfort. He's had no edema, syncope, TIAs, amaurosis or claudication. He's had no recent palpitations. Blood pressure has been somewhat elevated the last few days, but he is only been taking labetalol once a day. He continues to gain weight. ALLERGIES: ALLERGIES Allergen Reactions - Penicillins Hives - Sulfa (Sulfonamide * Intolerance can not remember the side effect - Crestor [Rosuvastat* Other: See Comments Myalgias - Lipitor [Atorvastat* Other: See Comments heavy legs - Norvasc [Amlodipine* Intolerance stasis edema CURRENT OUTPATIENT MEDICATIONS: aspirin, enteric coated 81 mg ORAL EC tablet Take 1 tablet by mouth once daily. azaTHIOprine (IMURAN) 50 mg tablet Take 3 tablets by mouth once daily. COMPOUNDED PRESCRIPTION Protime Dx:I48.91 Standing order: monthly and prn Fax results to Dr. Stuart: [phone] COMPOUNDED PRESCRIPTION Standing order:PATIENT/INR: A. FibFax to [phone] CPAP 1 Device. and supplies use as directed. Dx: GAURI furosemide (LASIX) 40 mg tablet Take 1 tablet by mouth once daily. labetalol (TRANDATE) 200 mg tablet Take 1 tablet by mouth once daily. lisinopril (PRINIVIL) 10 mg tablet Take 1 tablet by mouth once daily. [place]-3 Fatty Acids (FISH OIL) 500 mg cap Take 2 capsules by mouth once daily. rosuvastatin (CRESTOR) 5 mg tablet Take 1 tablet every M, W and F. warfarin (COUMADIN) 2 mg tablet Take 2 mg Tues and 4 mg all other days or as directed. warfarin (COUMADIN) 4 mg tablet Take 2 mg Tues and 4 mg all other days or as directed. cyanocobalamin (VITAMIN B-12) 1,000 mcg tab Take 1 tablet 4 days per week folic acid 1 mg tablet Take 1 tablet by mouth once daily. Garlic 1,000 mg cap Take by mouth once daily. potassium acetate as directed. takes 1 tablet 3 times per week PHYSICAL EXAMINATION: VITAL SIGNS: BP 165/100 Pulse 69 Ht 5' 8 (1.73m) Wt 229 lb 4.8 oz (104.0kg) BMI 34.87 kg/(m2). Chest: Clear to auscultation. Trachea is midline. Air entry is equal. Cardiac: Irregularly irregular rhythm. S1 and S2 are normal. PMI is nondisplaced. There is a 2/6 murmur of tricuspid insufficiency. Carotids are brisk without bruits. JVP is less than 10 cm. Abdomen: Soft and nontender. There are no pulsatile masses or bruits. No liver enlargement. Bowel sounds are active. Extremities: Trace edema. Pulses are intact and symmetrical. Recent echocardiogram was reviewed. There was improvement of right ventricular function and pulmonary pressure since outside echocardiogram of last year. Electronically Signed: Candy Avalos MD October 19, 2018 10:30 AM CC: Leena Ozuna MD Referring Provider: CANDY AVALOS [[id number]] Allergies As of Date: 10/19/2018 Noted Allergy Reaction PENICILLINS 09/18/2005 4 - Hives SULFA (SULFONAMIDE ANTIBIOTICS) 09/18/2005 5 - Intolerance Comments: can not remember the side effect CRESTOR (ROSUVASTATIN CALCIUM) 01/21/2011 14 - Other: See Comments Comments: Myalgias LIPITOR (ATORVASTATIN CALCIUM) 04/29/2011 14 - Other: See Comments Comments: heavy legs NORVASC (AMLODIPINE BESYLATE) 11/18/2011 5 - Intolerance Comments: stasis edema Date Reviewed: 10/19/2018 Reviewed by: Anupam Davis - Fully Assessed Reason for Visit: Established Patient [175] Primary Visit Diagnosis:Hypertension, essential [I10] Other Visit Diagnoses:RBBB (right bundle branch block) [I45.10] ASHD (arteriosclerotic heart disease) [I25.10] Order(s):labetalol (TRANDATE) 200 mg tabletTake 1 tablet by mouth twice daily.Disp: 180 tabletRfl: 3 Prescriptions as of 10/19/2018 Sig: ASPIRIN 81 MG TABLET,DELAYED * Take 1 tablet by mouth once d* AZATHIOPRINE 50 MG TABLET Take 3 tablets by mouth once * Patient taking differently: Take 100 mg by mouth once marisabel* COMPOUNDED PRESCRIPTION Protime Dx:I48.91 Standing o* COMPOUNDED PRESCRIPTION Standing order: PATIENT/INR:* CPAP 1 Device. and supplies use as* FUROSEMIDE 40 MG TABLET Take 1 tablet by mouth once d* LABETALOL 200 MG TABLET Take 1 tablet by mouth twice * LISINOPRIL 10 MG TABLET Take 1 tablet by mouth once d* OMEGA-3 FATTY ACIDS 500 MG CA* Take 2 capsules by mouth once* ROSUVASTATIN 5 MG TABLET Take 1 tablet every M, W and * WARFARIN 2 MG TABLET Take 2 mg Tues and 4 mg all o* WARFARIN 4 MG TABLET Take 2 mg Tues and 4 mg all o* Patient taking differently: Take 4 mg Tues, Thurs, Sat an* CYANOCOBALAMIN (VIT B-12) 1,0* Take 1 tablet 4 days per week FOLIC ACID 1 MG TABLET Take 1 tablet by mouth once d* GARLIC 1,000 MG CAPSULE Take by mouth once daily. POTASSIUM ACETATE-FOR TPN as directed. takes 1 tablet 3* Problem List As Of Date 10/19/2018 Noted Resolved Ulcerative colitis (HCC) [K51.90] INVALID FOR* More... Coronary atherosclerosis [I25.10] PURE HYPERCHOLESTEROLEM [E78.00] Essential hypertension [I10] More... Pain in joint, lower leg [M25.569] INVALID FOR*12/07/2016 ATRIAL FIBRILLATION [I48.91] INVALID FOR* Nonspecific elevation of levels of transaminase*INVALID FOR*12/07/2016 Myalgia [M79.10] INVALID FOR*12/07/2016 Hyperglycemia [R73.9] INVALID FOR* ASHD (arteriosclerotic heart disease) [I25.10] INVALID FOR* GAURI (obstructive sleep apnea) [G47.33] INVALID FOR* Anticoagulation goal of INR 2 to 3 [Z51.81, Z79*INVALID FOR* Anemia due to vitamin B12 deficiency [D51.9] INVALID FOR* Ulcerative chronic pancolitis without complicat*INVALID FOR* More... Obesity (BMI 30.0-34.9) [E66.9] INVALID FOR* Other instructions from your clinician: LIFESTYLE CHANGE A healthy lifestyle is the most important component of your overall treatment plan. Please give serious thought to the following areas and commit to making buttermaker continuous churn changes. EAT A WHOLE FOOD, PLANT BASED DIET The nutrition your body gets is more important than the medicine you take. What matters most is the overall way you eat. We encourage you to minimize the use of animal products (which include dairy and all meats except fatty fish) and use whole, unprocessed plant foods to provide your protein, vitamins and other nutrients. We have a lot of information to share with you on this topic. This is not a diet. It is a way of life that you will keep with you. EXERCISE REGULARLY It is not important to spend hours in the gym, lifting weights and perspiring heavily. A total of 2-3 hours per week of aerobic (causing you to be moderately short of breath) exercise is sufficient to improve your health. Talk to us before you begin a new exercise program, if you have heart disease or experience shortness of breath or chest pain. REDUCE STRESS Chronic emotional and physical stress leads to disease. Ways of reducing stress include meditation, visualization, prayer, yoga and other forms of relaxation therapy. Consistency is the medina. Find a technique that works for you and do it every day. CULTIVATE RELATIONSHIPS Loneliness and isolation have a major negative impact on health. Seek out others who can love, care for and nurture you. Avoid hurtful relationships. MAINTAIN IDEAL BODY WEIGHT The best way to do this is to do all the things above. Our bodies naturally find the right weight if we keep moving and feed ourselves the right food. If your BMI is greater than 25, we strongly recommend a referral to a weight management program. Please speak to us or your family physician about available programs. AVOID NICOTINE IN ALL FORMS This includes all tobacco products, whether chewed, smoked, vaped, or rubbed on the skin. Smoking cessation programs, which can make use of tobacco substitutes, medications to suppress cravings and behavior management, are available. Please contact your family physician about programs in your area. Prescriptions ordered this encounter Disp Refills Start End LABETALOL 200 MG TABLET 180 * 3 10/19/2018 Route: ORAL Sig: Take 1 tablet by mouth twice daily. Medications Discontinued During This Encounter labetalol (TRANDATE) 200 mg tablet 90 t* 3 05/21/2018 10/19/2018 Route: ORAL Sig: Take 1 tablet by mouth once daily. Disc: Reason for discontinue is not on file. Follow-up and Disposition History Recorded Encounter Status:Closed by CANDY AVALOS MD on 10/20/18 PROTHROMBIN TIME W/INR Collected: 10/19/2018 Status: F Source: [place] 10:41 AM [facility] REPOSITORY TYPE CODE TESTS RESULT OUT OF RANGE REFERENCE UNITS LAB L300.4150 11.7-14.9 SECONDS High PROTIME 20.2 LAB L300.4200 Normal INR 1.7 Performed By: #### L300.3900 #### [facility] [address] [place], [address] PROGRESS Observed: 10/19/2018 Status: COMPLETED Source: [place] 10:30 AM [facility] REPOSITORY HNO ID: [id number] Author: Candy Avalos Service: (none) Author Type: Physician Type: Progress Notes Filed: 10/20/2018 8:18 AM Note Text: PERTINENT CARDIAC HISTORY ASHD - CABGx4 2002 Atrial fib - permanent HTN HL GAURI - on CPAP Syncope - vasovagal RBBB ADHERENCE TO GUIDELINES PORSCHE-I or ARB for HF with prior LVEF<40 (NQF 0081) - met ASA or Plavix for ASHD (NQF 0067) - met Beta christina for ASHD with prior MT or prior LVEF<40 (NQF 0070) - met Beta christina for HF with prior LVEF<40 (NQF 0083) - N/A PORSCHE-I or ARB for ASHD with DM or prior LVEF<40 (NQF 0066) - N/A Statin therapy for ASHD or FHL or DM - met BMI documented and plan if >25 (NQF 0421) - lifestyle recommendation form Tobacco use screening and referral (NQF 0028) - lifestyle recommendation form Recommendation for whole food, plant based diet - lifestyle recommendation form CLINICAL IMPRESSION/PLAN: Aleksey Leon has stable coronary disease. He is advised to continue his current medication. Atrial fibrillation is permanent and rate is well controlled. He's had no recurrence of his vasovagal syncope. His most recent echocardiogram showed improvement in right ventricular size and function. Left ventricular function is globally normal. He has significant tricuspid insufficiency with mild pulmonary hypertension, although has no signs of right heart failure at this time. We will need to watch this closely. Diuretics will be held for the time being. There is no evidence of progression of his conduction disease. He was advised to contact me if he has recurrent syncope or near syncope. We will consider implantable loop recorder. Blood pressure is inadequately controlled. He has been on much higher doses of labetalol in the past. I'm concerned about the possibility of conduction disease. I've asked him to return to a 200 milligrams twice daily dose of labetalol but update me with vital signs later this week. We may need to increase PORSCHE inhibitor and go to a smaller dose of labetalol twice daily if his heart rate becomes unacceptably low. I recommend he be seen in 8 months or as needed. Written and verbal health teaching given to patient, patient verbalizes understanding and agrees with treatment plan. DIAGNOSIS FOR VISIT: ASHD Atrial fibrillation HISTORY OF PRESENT ILLNESS Aleksey Leon returns for follow-up of his coronary disease and atrial fibrillation. He reports improvement in exercise tolerance. He's had no recurrent syncope. He currently has a cold. He denies chest discomfort. He's had no edema, syncope, TIAs, amaurosis or claudication. He's had no recent palpitations. Blood pressure has been somewhat elevated the last few days, but he is only been taking labetalol once a day. He continues to gain weight. ALLERGIES: ALLERGIES Allergen Reactions - Penicillins Hives - Sulfa (Sulfonamide * Intolerance can not remember the side effect - Crestor [Rosuvastat* Other: See Comments Myalgias - Lipitor [Atorvastat* Other: See Comments heavy legs - Norvasc [Amlodipine* Intolerance stasis edema CURRENT OUTPATIENT MEDICATIONS: aspirin, enteric coated 81 mg ORAL EC tablet Take 1 tablet by mouth once daily. azaTHIOprine (IMURAN) 50 mg tablet Take 3 tablets by mouth once daily. COMPOUNDED PRESCRIPTION Protime Dx:I48.91 Standing order: monthly and prn Fax results to Dr. Stuart: [phone] COMPOUNDED PRESCRIPTION Standing order:PATIENT/INR: A. FibFax to [phone] CPAP 1 Device. and supplies use as directed. Dx: GAURI furosemide (LASIX) 40 mg tablet Take 1 tablet by mouth once daily. labetalol (TRANDATE) 200 mg tablet Take 1 tablet by mouth once daily. lisinopril (PRINIVIL) 10 mg tablet Take 1 tablet by mouth once daily. [place]-3 Fatty Acids (FISH OIL) 500 mg cap Take 2 capsules by mouth once daily. rosuvastatin (CRESTOR) 5 mg tablet Take 1 tablet every M, W and F. warfarin (COUMADIN) 2 mg tablet Take 2 mg Tues and 4 mg all other days or as directed. warfarin (COUMADIN) 4 mg tablet Take 2 mg Tues and 4 mg all other days or as directed. cyanocobalamin (VITAMIN B-12) 1,000 mcg tab Take 1 tablet 4 days per week folic acid 1 mg tablet Take 1 tablet by mouth once daily. Garlic 1,000 mg cap Take by mouth once daily. potassium acetate as directed. takes 1 tablet 3 times per week PHYSICAL EXAMINATION: VITAL SIGNS: BP 165/100 Pulse 69 Ht 5' 8 (1.73m) Wt 229 lb 4.8 oz (104.0kg) BMI 34.87 kg/(m2). Chest: Clear to auscultation. Trachea is midline. Air entry is equal. Cardiac: Irregularly irregular rhythm. S1 and S2 are normal. PMI is nondisplaced. There is a 2/6 murmur of tricuspid insufficiency. Carotids are brisk without bruits. JVP is less than 10 cm. Abdomen: Soft and nontender. There are no pulsatile masses or bruits. No liver enlargement. Bowel sounds are active. Extremities: Trace edema. Pulses are intact and symmetrical. Recent echocardiogram was reviewed. There was improvement of right ventricular function and pulmonary pressure since outside echocardiogram of last year. Electronically Signed: Candy Avalos MD October 19, 2018 10:30 AM CC: Leena Ozuna MD PROGRESS Observed: 09/17/2018 Status: COMPLETED Source: [place] 10:53 AM [facility] REPOSITORY HNO ID: [id number] Author: Leena Ozuna Service: (none) Author Type: Physician Type: Progress Notes Filed: 09/17/2018 10:53 AM Note Text: This note was created using NoteWriter. Subjective Aleksey Leon is a 62 year old male. Review of Systems Objective There were no vitals taken for this visit. Physical Exam Assessment and Plan same PROGRESS Observed: 09/17/2018 Status: COMPLETED Source: [place] 10:35 AM [facility] REPOSITORY O ID: [id number] Author: Marci Orozco RN Service: (none) Author Type: (none) Type: Progress Notes Filed: 09/17/2018 10:37 AM Note Text: patient had inr completed at [facility] patients inr is 2.1 (patients inr range is 2.0-3.0) patient is currently taking 4mg Mon,Wed,Fri and 2mg all other days patients last dose change was on 04/29/18 due to a high level of 3.9 (dose at that time was 2mg Tu and 4mg all other days) patient has had no changes in medication and no missed doses and no change in diet Advised patient to continue on the same dose(s) and that they would only be contacted regarding dosage and follow up instructions after review with provider, if a change is needed. Written instructions given and patient verbalized understanding. Presently scheduled in 4 weeks (10/15/18) for follow up INR. 12 LEAD ELECTROCARDIOGRAM Observed: 09/14/2018 Status: F Source: [place] 3:22 PM [facility] REPOSITORY [facility] Cardiovascular Services [address] [place] [id number] 12 Lead EKG 09/13/18 1152 MR#: [id number] Acct: [id number] Name: ALEKSEY LEON Rep #: [id number] : 1955 62 From: Miguel Douglas MD Attending Dr: Status: DEP ER Ordering Dr: Henry Mcdowell MD Date: 09/13/18 Location: ED Sex: M C Admitted: Test Reason : DIZZINESS Blood Pressure : / mmHG Vent. Rate : 064 BPM Atrial Rate : 340 BPM P-R Int : 000 ms QRS Dur : 178 ms QT Int : 470 ms P-R-T Axes : 000 -82 -06 degrees QTc Int : 484 ms Atrial fibrillation Left axis deviation Right bundle branch block Inferior infarct , age undetermined Abnormal ECG Confirmed by MISAEL VIERA, MIGUEL ([id number]), map editor WILBERT ERAZO ([id number]) on 09/14/2018 3:21:56 PM Referred By: ALDO Confirmed By:MIGUEL DOUGLAS MD 09/14/18 1522 Date Miguel Douglas MD CC: Leena Ozuna; Elmer Stuart MD; Henry Mcdowell MD Signed DISCHARGE INSTRUCTION Observed: 09/13/2018 Status: F Source: [place] 3:42 PM [facility] REPOSITORY [facility] Medical Records Department [address] [place] [address] Discharge Instruction 09/13/18 1445 MR#: [id number] Acct: [id number] Name: ALEKSEY LEON Rep #: [id number] : 1955 62 From: Henry Mcdowell MD PCP: Leena Ozuna Status: DEP ER ED Disposition - Plan for ED Patient: Disposition: Home or Assisted Living Chief Complaint: Syncope Instructions: ED Hypotension Orthostatic Referrals: Leena Ozuna [Primary Care Provider] - As Needed Additional Instructions: Plenty of fluids and rest. Monitor your blood pressure the next 24 hours. Hold your Lasix for the next several days. I would only use it if you are having any shortness of breath or swelling in your legs. I think between being somewhat dehydrated and the Lasix that would cause you to almost pass out today. What to do if you have Problems For any increased pain, shortness of breath, bleeding, nausea or vomiting, chest pain, or any unexpected problems, contact your Primary Care Provider. Call [facility] ([phone]) or report to the closest Emergency Room. Call 911 if necessary. 09/13/18 1542 <Electronically signed by Henry Mcdowell MD> Date Henry Mcdowell MD Cosigner Signature (If Indicated): Date CC: Leena Ozuna; Elmer Stuart MD EMERGENCY DEPARTMENT Observed: 09/13/2018 Status: F Source: [place] SUMMARY 3:42 PM [facility] REPOSITORY [facility] Medical Records Department [address] [place] [address] Emergency Department Summary 09/13/18 1214 MR#: [id number] Acct: [id number] Name: ALEKSEY LEON Rep #: [id number] : 1955 62 From: Henry Mcdowell MD PCP: Leena Ozuna Status: DEP ER - ER Visit Summary Date of Service: 09/13/18 Chief Complaint: Near syncope History of Present Illness: The patient is a 62 M history of prior syncope. History of CAD prior quadruple bypass in 2002, CHF, valvular heart disease, A. fib on Coumadin, hypertension. Patient has had prior syncopal events before in the past which she felt were secondary to dehydration. He does take Lasix as needed and states he took one this morning. He and his were at an area restaurant having breakfast he felt lightheaded and had a near syncopal event. His eyes rolled back he started to have tremors but he did not fall he was caught by his and a bystander. Prior to the event he denies having any headache, chest pain, shortness of breath or being recently ill. He has had no recent nausea, vomiting, diarrhea or melena. Physical Examination: Older male vital signs are stable afebrile. Current blood pressure 118/72. H EENT exam pupils round reactive light. No signs of trauma. Normal speech. No facial droop. Neck nontender. Trachea midline. Lungs clear to auscultation bilaterally. Heart A. fib irregular rhythm rate about 67. 3/6 systolic ejection murmur. Chest wall nontender. Abdomen soft nontender. Normal bowel sounds no peritoneal signs. No pulsatile mass. Patient is moving all 4 extremities. They are neurovascularly intact. He has equal symmetrical counter pocket trimmer strength. Dorsi plantar flexion intact. Calves are nontender without edema. Back nontender. Neurologically is awake alert with no focal motor deficits. NIH score is 0. Test Results: Patient CBC is a white count of 5. Hemoglobin 14. Electrolytes show a normal gap. BUN of 59 previously that was 18. Creatinine 1.69 previously about 1. Troponin normal. He is on Coumadin his INR is 3.1. He did take his Coumadin this morning. EKG shows A. fib rate is 64 with a right bundle branch block and an old inferior MT. This is unchanged from prior EKG from 2016. Chest x-ray shows cardiomegaly and a prior sternotomy but no acute process. This was seen previously. Patient's orthostatic vital signs were negative. His pressure actually improved when he stood up. Emergency Department Course and Treatment: Patient had a near syncopal event. Patient doing well repeat exam at 1443. Drink plenty of fluids at home. Hold off on his Lasix the next several days. Treatment Plan: Fluids and rest. Hold his diuretic. Disposition: Discharge Impression: Acute near syncope Dehydration History of CAD, CABG, valvular heart disease, chronic A. fib Anticoagulated on Coumadin with an INR 3.1. This note was generated with ReNew Power dictation software. It may contain incorrect words, spelling, and punctuation that were not noted in review of the chart prior to signing ED Disposition - Plan for ED Patient: Chief Complaint: Syncope Referrals: Leena Ozuna [Primary Care Provider] - What to do if you have Problems For any increased pain, shortness of breath, bleeding, nausea or vomiting, chest pain, or any unexpected problems, contact your Primary Care Provider. Call [facility] ([phone]) or report to the closest Emergency Room. Call 911 if necessary. 09/13/18 1542 <Electronically signed by Henry Mcdowell MD> Date Henry Mcdowell MD Cosigner Signature (If Indicated): Date CC: Leena Ozuna; Elmer Stuart MD PROTHROMBIN TIME W/INR Collected: 09/13/2018 Status: F Source: [place] 1:05 PM [facility] REPOSITORY Order Comment: REDRAW. PREVIOUS SPECIMEN REJECTED DUE TO HEMOLYSIS. 09/13/18 1254 Wendie Knox. TYPE CODE TESTS RESULT OUT OF RANGE REFERENCE UNITS LAB L300.4150 11.7-14.9 SECONDS High PROTIME 32.2 LAB L300.4200 Normal INR 3.1 Performed By: #### L300.3900 #### [facility] [address] [place], [address] CBC W/DIFF, AUTOMATED Collected: 09/13/2018 Status: F Source: [place] 12:35 PM [facility] REPOSITORY TYPE CODE TESTS RESULT OUT OF RANGE REFERENCE UNITS LAB L100.1000 4.4-11.0 K/mm3 Normal WBC 5.4 LAB L100.1200 4.6-6.2 M/mm3 Low RBC 4.00 LAB L100.1300 13.0-16.5 g/dl Normal HGB 14.4 LAB L100.1400 40-54 % Normal HCT 41.4 LAB L100.1500 80-94 fL High MCV 103.5 LAB L100.1600 27.0-32.0 pg High MCH 36.0 LAB L100.1700 32-36 g/gl Normal MCHC 34.8 LAB L100.1810 11.6-14.6 % High RDW CV 16.2 LAB L100.1820 35.1-43.9 fl High RDW SD 61.9 LAB L100.1900 150-450 K/mm3 Normal PLT 266 LAB L100.2000 6.2-12.0 fl Normal MPV 9.7 LAB L100.2100 47-70 % High NEUT% 72.1 LAB L100.2200 19-41 % Low LY% 8.5 LAB L100.2300 0-10 % High MONO% 15.7 LAB L100.2400 0-5 % Normal EO% 2.4 LAB L100.2500 0-1 % Normal BASO% 0.9 LAB L100.2550 0.0-0.9 % Normal IM GRAN % 0.400 Result Comment: IG% - Immature Granulocytes (promyelocytes, myelocytes and metamyelocytes) > 1% indicates that a LEFT SHIFT is Present. LAB L100.2620 2.0-7.7 X10 3/uL Normal Absolute Neut 3.9 LAB L100.2720 0.83-4.51 X10 3/ul Low Absolute Lymph 0.46 Performed By: #### L100.0100 #### [facility] [address] [place], [address] BASIC METABOLIC Collected: 09/13/2018 Status: F Source: [place] PROFILE (BMP) 12:35 PM [facility] REPOSITORY TYPE CODE TESTS RESULT OUT OF RANGE REFERENCE UNITS LAB L501.0100 74-106 mg/dL Normal GLU 106 Result Comment: Fasting Glucose result from 100 to 125 mg/dL suggests IMPAIRED HOMEOSTASIS per A.D.A. criteria. Please note revised GLUCOSE reference range effective 2017. LAB L501.1000 7-18 mg/dL High BUN 59 LAB L501.1100 0.70-1.30 mg/dL High CREAT,SERUM 1.69 Result Comment: The validity of the calculated GFR AND GFRAA in patients over 70 years has not been determined. Clinical correlation is essential. LAB L501.1110 >60 mL/min Low EST GFR 44 Result Comment: Non- GFR Calc LAB L501.1115 >60 mL/min Low EST GFR - AA 53 Result Comment: GFR Calc LAB L501.1255 ml/min Normal Estimated CRCL 42.72 LAB L501.1300 10-20 RATIO High BUN/CRE 34.9 LAB L501.2200 8.5-10 mg/dL Normal .1 CA 8.5 LAB L501.5300 136-14 mmol/L Normal 5 NA 140 LAB L501.5600 3.5-5. mmol/L Normal 1 K 4.8 LAB L501.5900 98-107 mmol/L Normal CL 107 LAB L501.6100 21.0-3 mmol/L Normal 2.0 CO2 22.0 LAB L501.6200 5-15 Normal GAP 11 Performed By: #### L500.2500, L501.4010 #### [facility] [address] [place], [place], [address] TROPONIN-I Collected: 09/13/2018 Status: F Source: [place] 12:35 PM [facility] REPOSITORY TYPE CODE TESTS RESULT OUT OF RANGE REFERENCE UNITS LAB L501.4010 <0.045 ng/mL Normal < 0.015 TROPONIN-I Result Comment: TROPONIN-I EXPECTED VALUES <0.045 Negative 0.045 - 0.590 Consistent with Cardiac Damage > OR = 0.600 Critical Value Not every elevated troponin is indicative of MT. These values should be used with clinical judgement in examining the patient's clinical picture for diagnosis. To establish a diagnosis of MT versus myocardial injury, there must be a demonstrated rise and/or fall in the troponin values, in addition to ischemic symptoms, EKG changes, new regional wall motion abnormality, and/or angiographical evidence. PLEASE NOTE: REFERENCE RANGES EDITED 18 Performed By: #### L500.2500, L501.4010 #### [facility] [address] [place], [address] CHEST 1 VIEW Observed: 09/13/2018 Status: F Source: [place] (PORTABLE) 12:11 PM [facility] REPOSITORY [facility] Imaging Services [address] [place], [place] [address] [place] [address] Chest 1 View (Portable) MR#: [id number] Acct: [id number] Name: ALEKSEY LEON Rep #: [id number] : 1955 62 From: Jose Daniel Heredia MD PCP: Leena Ozuna Status: REG ER Study: Chest 1 View (Portable) Date of Exam: 09/13/18 Exam# [id number] Ordering Dr: Henry Mcdowell MD STUDY: X-RAY CHEST REASON FOR EXAM: Male, 62 years old. Chest pain. TECHNIQUE: AP portable upright view of the chest on 2 films. COMPARISON: Portable AP upright chest x-ray March 17, 2016 FINDINGS: Small calcified granuloma again seen in the lateral inferior right base The lungs are otherwise clear and expanded. There is no demonstrated pleural abnormality. There is moderate cardiac enlargement. Sternal cerclage wires are present from a prior sternotomy. Normal mediastinum and dominick. Normal visualized pulmonary arteries. There is stable mild atherosclerotic calcification of the aortic arch, as well as calcification at the right carotid artery bifurcation. There are stable multilevel degenerative changes of the visualized thoracic spine. Normal visualized ribs, clavicles, and shoulders. There is no demonstrated abnormality of the visualized soft tissue structures of the upper abdomen. RAD/Chest 1 View (Portable) IMPRESSION: 1. Prior median sternotomy. Stable cardiac enlargement. No CHF. 2. No acute pneumonic infiltrate. 3. Atherosclerotic calcific plaquing, including stable calcification near the right carotid artery bifurcation Electronically Signed: Glenn Heredia MD at 12:48 EST , Service support , CC: Leena Ozuna; Henry Mcdowell MD Experiential Therapist: Signed PROGRESS Observed: 08/26/2018 Status: COMPLETED Source: [place] 3:09 PM [facility] REPOSITORY HNO ID: [id number] Author: Leena Ozuna Service: (none) Author Type: Physician Type: Progress Notes Filed: 08/26/2018 3:09 PM Note Text: This note was created using NoteWriter. Subjective Aleksey Leon is a 62 year old male. Review of Systems Objective There were no vitals taken for this visit. Physical Exam Assessment and Plan agree PROGRESS Observed: 08/26/2018 Status: COMPLETED Source: [place] 2:00 PM [facility] REPOSITORY HNO ID: [id number] Author: Marci Orozco RN Service: (none) Author Type: (none) Type: Progress Notes Filed: 08/26/2018 2:02 PM Note Text: patient had inr completed at [facility] patients inr is 2.8 (patients inr range is 2.0-3.0) patient is currently taking 4mg Tues,Thurs,Sat and 2mg all other days patients last dose change was on 08/05/18 due to a high level of 3.2 (dose at that time was 2mg Tues,Thurs,Sat and 4mg all other days) patient has had no changes in medication and no missed doses and no change in diet Advised patient to continue on the same dose(s) and that they would only be contacted regarding dosage and follow up instructions after review with provider, if a change is needed. Written instructions given and patient verbalized understanding. Presently scheduled in 3 weeks (09/17/18) for follow up INR. PROGRESS Observed: 08/05/2018 Status: COMPLETED Source: [place] 4:25 PM [facility] REPOSITORY HNO ID: [id number] Author: Sadaf Brown Ma Service: (none) Author Type: (none) Type: Progress Notes Filed: 08/05/2018 4:26 PM Note Text: Patient notified and verbalizes understanding. Tracker and med list updated. Sadaf Brown Ma PROGRESS Observed: 08/05/2018 Status: COMPLETED Source: [place] 12:27 PM [facility] REPOSITORY HNO ID: [id number] Author: Leena Ozuna Service: (none) Author Type: Physician Type: Progress Notes Filed: 08/05/2018 4:26 PM Note Text: Change to 2 mg a day, except 4 mg on T, TH, Sat. Recheck one week PROGRESS Observed: 08/05/2018 Status: COMPLETED Source: [place] 10:56 AM [facility] REPOSITORY HNO ID: [id number] Author: Marci Orozco RN Service: (none) Author Type: (none) Type: Progress Notes Filed: 08/05/2018 10:58 AM Note Text: patient had inr completed at [facility] patients inr is 3.2 (patients inr range is 2.0-3.0) patient is currently taking 2mg Tues,thurs,Sat and 4mg all other days patients last dose change was on 04/29/19 due to a high level of 3.9 (dose at that time was 2mg Tues and 4mg all other days) patient has had no changes in medication and no missed doses and no change in diet FYI- patient is leaving for [place] tomorrow and will be back next week some time, he will call to schedule a 1 week follow up when he knows the date they will be returning Advised patient that they would be contacted regarding medication dose and when to follow up after information is reviewed by provider. After provider review please contact the patient with information and schedule follow up appointment with coumadin clinic. PROGRESS Observed: 07/07/2018 Status: COMPLETED Source: [place] 2:15 PM [facility] REPOSITORY HNO ID: [id number] Author: Leena Ozuna Service: (none) Author Type: Physician Type: Progress Notes Filed: 07/07/2018 2:15 PM Note Text: This note was created using NoteWriter. Subjective Aleksey Leon is a 62 year old male. Review of Systems Objective There were no vitals taken for this visit. Physical Exam Assessment and Plan agree PROGRESS Observed: 07/07/2018 Status: COMPLETED Source: [place] 2:04 PM [facility] REPOSITORY HNO ID: [id number] Author: Marci Orozco RN Service: (none) Author Type: (none) Type: Progress Notes Filed: 07/07/2018 2:05 PM Note Text: patient had inr completed at [facility] patients inr is 2.2 (patients inr range is 2.0-3.0) patient is currently taking 2mg Tues,Thurs,Sat and 4mg all other days patients last dose change was on 04/29/18 due to a high level of 3.9 (dose at that time was 2mg Tues and 4mg all other days) patient has had no changes in medication and no missed doses and no change in diet Advised patient to continue on the same dose(s) and that they would only be contacted regarding dosage and follow up instructions after review with provider, if a change is needed. Written instructions given and patient verbalized understanding. Presently scheduled in 4 weeks (08/05/18) for follow up INR. PROGRESS Observed: 06/04/2018 Status: COMPLETED Source: [place] 1:59 PM [facility] REPOSITORY HNO ID: [id number] Author: Leena Ozuna Service: (none) Author Type: Physician Type: Progress Notes Filed: 06/04/2018 1:59 PM Note Text: This note was created using Cellesriter. Subjective Aleksey Leon is a 62 year old male. Review of Systems Objective There were no vitals taken for this visit. Physical Exam Assessment and Plan agree PROGRESS Observed: 06/04/2018 Status: COMPLETED Source: [place] 1:55 PM [facility] REPOSITORY HNO ID: [id number] Author: Marci Orozco RN Service: (none) Author Type: (none) Type: Progress Notes Filed: 06/04/2018 1:57 PM Note Text: patient had inr completed at [facility] patients inr is 2.0 (patients inr range is 2.0-3.0) patient is currently taking 2mg Tues,Thurs,Sat and 4mg all other days patients last dose change was on 04/29/18 due to a high level of 3.9 (dose at that time was 2mg Tues and 4mg all other days) patient has had no changes in medication and no missed doses and no change in diet Advised patient to continue on the same dose(s) and that they would only be contacted regarding dosage and follow up instructions after review with provider, if a change is needed. Written instructions given and patient verbalized understanding. Presently scheduled in 4 weeks (07/02/18) for follow up INR. PROTIME Collected: 05/11/2018 Status: F Source: [place] 11:26 AM [facility] REPOSITORY TYPE CODE TESTS RESULT OUT OF RANGE REFERENCE UNITS LAB PSEC 9.7-13.0 sec High PT Sec 30.6 LAB INR 0.9-1.3 High PT INR 3.2 Result Comment: Vitamin K Antagonist (VKA) Therapeutic Range: INR 2 to 3 (Target INR of 2.5) Note: For patients treated with VKA drugs, such as warfarin, the [place] [employer] 2012 Guideline recommends a therapeutic INR range of 2 to 3 (target INR of 2.5). This recommendation includes high-risk patients with antiphospholipid syndrome with previous arterial or venous thromboembolism, current-generation mechanical or bioprosthetic aortic heart valve replacement. Note: Patients with mechanical aortic valve replacement and additional risk factors for thromboembolic events (atrial fibrillation, previous thromboembolism, LV dysfunction, hypercoagulable conditions) or an older generation mechanical AVR (i.e., ball in-Cage) or any mechanical MVR should have a INR therapeutic range of 2.5 to 3.5 (target INR of 3). Nereida GH, et al. Chest 2012, 141:7S-47S Viola RA, et al. [facility] 2017, 70: 252-289 Performed By: #### PT #### [facility] [address], [place] [address] PROGRESS Observed: 04/29/2018 Status: COMPLETED Source: [place] 4:33 PM [facility] REPOSITORY HNO ID: [id number] Author: Marci Orozco RN Service: (none) Author Type: (none) Type: Progress Notes Filed: 04/29/2018 4:33 PM Note Text: PATIENT NOTIFIED OF INFORMATION PROGRESS Observed: 04/29/2018 Status: COMPLETED Source: [place] 2:38 PM [facility] REPOSITORY HNO ID: [id number] Author: Leena Ozuna Service: (none) Author Type: Physician Type: Progress Notes Filed: 04/29/2018 4:33 PM Note Text: This note was created using NoteWriter. Subjective Aleksey Leon is a 62 year old male. Review of Systems Objective There were no vitals taken for this visit. Physical Exam Assessment and Plan Hold x 2 days, then change to 2 mg on and TH, 4 mg a day rest of the week. Recheck when back in town PROGRESS Observed: 04/29/2018 Status: COMPLETED Source: [place] 8:17 AM [facility] REPOSITORY HNO ID: [id number] Author: Marci Orozco RN Service: (none) Author Type: (none) Type: Progress Notes Filed: 04/29/2018 8:18 AM Note Text: patient had inr completed at [facility] patients inr is 3.9 (patients inr range is 2.0-3.0) patient is currently taking 2mg Tues and 4mg all other days patients last dose change was on 03/12/18 due to a low level of 1.7 (dose at that time was 2mg Tues,Sat and 4mg all other days) patient has had no changes in medication and no missed doses and no change in diet Advised patient that they would be contacted regarding medication dose and when to follow up after information is reviewed by provider. After provider review please contact the patient with information and schedule follow up appointment with coumadin clinic. FYI - patient is leaving Thursday for [place] for 1 week VENOUS DUPLEX LOWER Observed: 04/14/2018 Status: F Source: [place] 3:52 PM [facility] REPOSITORY [facility] Cardiovascular Services [address] [place] [address] Venous Duplex US, Unilateral 04/14/18 1459 MR#: [id number] Acct: [id number] Name: ALEKSEY LEON Rep #: [id number] : 1955 62 From: Demetri Thompson MD Attending Dr: Leena Ozuna MD Status: REG CLI Ordering Dr: Leena Ozuna MD Date: 04/14/18 Location: [facility] Sex: M C Admitted: Reason For Study: LLE pain RIGHT LEFT CFV is compressible, spontaneous, phasic, GSV is normal. competent and demonstrates normal CFV is compressible, spontaneous, phasic, augmentation. competent, and demonstrates normal Procedure augmentation. Exam performed in department. FV is compressible, spontaneous, phasic, The exam was diagnostic. competent and demonstrates normal A preliminary report was called and/or faxed augmentation. to Dr. Ozuna @ 3:25 pm @ [phone]. POP V is compressible, spontaneous, phasic, PT is currently on anticoagulation competent and demonstrates normal (warfarin). augmentation. T/P Trunk is compressible. PTV is compressible. LT PerV is compressible. NON vascular structure noted in the left medial mid calf area measuring 2.0 x 0.5 cm sag view. Interpretation Summary Deep veins of the left lower extremity are patent and compressible segmentally. There is no evidence of left lower extremity deep vein thrombosis. Valvular competence appears intact within the proximal deep venous system on the left . The left greater saphenous vein appears patent and compressible segmentally. A non-vascular structure is noted in the soft tissues of the left medial calf, measuring 2.0 cm x 2.5 cm. This may represent a hematoma or seroma. Clinical correlation is advised. Ordering Physician: Leena Ozuna Referring Physician: Leena Ozuna Performed By: Suzan Marquez, MELO, RVT 04/14/18 9060 Date Demetri Thompson MD CC: Elmer Stuart MD; Leena Ozuna MD Date Dictated: 04/14/18 1459 Date Transcribed: 04/14/18 6202 Experiential Therapist: Signed PROTHROMBIN TIME W/INR Collected: 04/14/2018 Status: F Source: [place] 2:36 PM [facility] REPOSITORY TYPE CODE TESTS RESULT OUT OF RANGE REFERENCE UNITS LAB L300.4150 11.7-14.9 SECONDS High PROTIME 28.0 LAB L300.4200 Normal INR 2.6 Performed By: #### L300.3900 #### [facility] [address] [place], [address] PROTIME Collected: 04/14/2018 Status: F Source: [place] 1:18 PM [facility] REPOSITORY TYPE CODE TESTS RESULT OUT OF REFERENCE UNITS RANGE LAB PSEC 9.7-13.0 sec Test PT sent to [place] [facility]. Result Comment: Account Credited LAB INR 0.9-1.3 Test sent to PT INR [facility]. Result Comment: Account Credited PROGRESS Observed: 04/14/2018 Status: COMPLETED Source: [place] 12:33 PM [facility] REPOSITORY HNO ID: [id number] Author: Leena Ozuna Service: (none) Author Type: Physician Type: Progress Notes Filed: 04/14/2018 12:44 PM Note Text: Patient presents with: Mass: left calf HPI: Patient presents today for office visit for follow up. Nursing Notes: Edda Badna LPN 04/14/2018 12:00 PM Signed Patient complains of: lump. Duration: noticed on thursday Location:left calf Associated Symptoms: only painful when rubs it Concerned about blood clot INR was normal last week. No trauma. No chest pain or shortness of breath. MEDICATIONS: Current Outpatient Prescriptions: warfarin (COUMADIN) 4 mg tablet Take 2 mg Tues and 4 mg all other days or as directed. warfarin (COUMADIN) 2 mg tablet Take 2 mg Tues and 4 mg all other days or as directed. labetalol (TRANDATE) 200 mg tablet Take 1 tablet by mouth once daily. (Patient taking differently: Take 200 mg by mouth twice daily. ) lisinopril (PRINIVIL) 10 mg tablet Take 1 tablet by mouth once daily. azaTHIOprine (IMURAN) 50 mg tablet Take 3 tablets by mouth once daily. (Patient taking differently: Take 100 mg by mouth once daily. ) [place]-3 Fatty Acids (FISH OIL) 500 mg cap Take 2 capsules by mouth once daily. rosuvastatin (CRESTOR) 5 mg tablet Take 1 tablet every M, W and F. folic acid 1 mg tablet Take 1 tablet by mouth once daily. aspirin, enteric coated 81 mg ORAL EC tablet Take 1 tablet by mouth once daily. COMPOUNDED PRESCRIPTION Standing order:PATIENT/INR: Kathi FrancoFax to [phone] potassium acetate as directed. takes 1 tablet 3 times per week Garlic 1,000 mg cap Take by mouth once daily. cyanocobalamin (VITAMIN B-12) 1,000 mcg tab Take 1 tablet 4 days per week (Patient not taking: Reported on 03/24/2018 ) COMPOUNDED PRESCRIPTION Protime Dx:I48.91 Standing order: monthly and prn Fax results to Dr. Stuart: [phone] CPAP 1 Device. and supplies use as directed. Dx: GAURI No current facility-administered medications for this visit. ALLERGIES: ALLERGIES Allergen Reactions - Penicillins Hives - Sulfa (Sulfonamide * Intolerance can not remember the side effect - Crestor [Rosuvastat* Other: See Comments Myalgias - Lipitor [Atorvastat* Other: See Comments heavy legs - Norvasc [Amlodipine* Intolerance stasis edema PAST MEDICAL HISTORY Diagnosis Date - Arrhythmia - Atrial fibrillation (HCC) - Coronary atherosclerosis of unspecified type of vessel, confederated salish or graft - Difficult intubation requires fiberoptic intubation - Diverticulosis of colon (without mention of hemorrhage) - Family history of prostate cancer - Nonspecific elevation of levels of transaminase or lactic acid dehydrogenase (LDH) 04/26/2010 - Obstructive sleep apnea - Pain in joint, lower leg 09/18/2006 - Pure hypercholesterolemia - Ulcerative colitis, unspecified - Unspecified essential hypertension PAST SURGICAL HISTORY Procedure Laterality Date - COLONOSCOP W/ OR W/O BRS SPEC 10/04, 11/27/2005 Colonoscopy - COLONOSCOP W/ OR W/O BRS SPEC 03/21/2008 Colonoscopy - COLONOSCOP W/ OR W/O BRS SPEC 05/13/2012 Colonoscopy repeat 18 months - COLONOSCOP W/ OR W/O BRS SPEC 06/21/15 Colonoscopy - COLONOSCOP W/ OR W/O BRS SPEC 08/10/2017 repeat 5 years - COLONOSCOPY W/BX 04/28/07 - HEART SURGERY HX - PAST SURGICAL HISTORY OF 04/2003 heart surgery - SIGMOIDOSCOPY FLEX DIAG 1983, 03/10/1996 Sigmoidoscopy FAMILY HISTORY Problem Relation Age of Onset - Heart Father mi age 70 - Prostate Cancer Father in his late 70's - Alzheimer's Disease Mother - Heart Brother Social History Marital status: Spouse name: Fariha Years of education: Number of children: 0 Occupational History Occupation Employer Comment [employer]* Social History Main Topics Smoking status: Former Smoker Packs/day: 0.00 Years: 0.00 Quit date: 04/02/2004 Smokeless tobacco: Never Used Alcohol use: No Drug use: No Sexual activity: Yes Partners with: Female Reviewed current medications, allergies, past medical history, surgical history, family history and social history today. REVIEW OF SYSTEMS All other reviewed and negative other than HPI. VITALS: BP 129/80 Pulse 64 Resp 16 Last 4 Encounter Wt Readings: Date: Wt: 03/24/2018 97.5 kg (215 lb) 03/01/2018 97.1 kg (214 lb 1.6 oz) 07/28/2017 100.7 kg (222 lb) 07/01/2017 101.6 kg (224 lb) PHYSICAL EXAMINATION: General appearance: Well appearing, alert, in no acute distress, well-hydrated, well nourished. Skin: Skin color, texture, turgor normal, no suspicious rashes or lesions Head: Normocephalic, no masses, lesions, tenderness or abnormalities Lungs: Lungs clear to auscultation. No wheezing, rhonchi, rales Heart: RRR without murmur, gallop, or rubs. No ectopy Abdomen: Normal abdominal exam, Abdomen soft, non-tender. Bowel sounds normal. No masses, organomegaly Extremities: No deformities, edema, palpable lump in left calf. Slightly tender. No redness or warmth. ASSESSMENT/PLAN: 1. Pain of left lower extremity - ICD9: 729.5, ICD10: M79.605 (primary diagnosis) - monitor. Check duplex. - Red flags for re-assessment reviewed with patient in detail. - Call if symptoms worsen at all or if not better in one to two weeks - US LEG VEIN DVT UNL VAS LAB 2. Atrial fibrillation, unspecified type (HCC) - ICD9: 427.31, ICD10: I48.91 - PROTHROMBIN TIME/PT Leena Ozuna MD CNOV Observed: 04/14/2018 Status: COMPLETED Source: [place] 11:00 AM [facility] REPOSITORY Office Visit (FAMPWS) ALEKSEY LEON ([id number]) 1955 M Date Time Provider Department 04/14/18 11:00 AM LEENA OZUNA During your visit today, we recorded the following information about you: Pulse Respiration Blood pressure 64/minute 16/minute 129/80 Edda Banda LPN 04/14/2018 12:00 PM Signed Patient complains of: lump. Duration: noticed on thursday Location:left calf Associated Symptoms: only painful when rubs it Concerned about blood clot Leena Ozuna MD 04/14/2018 12:44 PM Signed Patient presents with: Mass: left calf HPI: Patient presents today for office visit for follow up. Nursing Notes: Edda Banda LPN 04/14/2018 12:00 PM Signed Patient complains of: lump. Duration: noticed on thursday Location:left calf Associated Symptoms: only painful when rubs it Concerned about blood clot INR was normal last week. No trauma. No chest pain or shortness of breath. MEDICATIONS: Current Outpatient Prescriptions: warfarin (COUMADIN) 4 mg tablet Take 2 mg Tues and 4 mg all other days or as directed. warfarin (COUMADIN) 2 mg tablet Take 2 mg Tues and 4 mg all other days or as directed. labetalol (TRANDATE) 200 mg tablet Take 1 tablet by mouth once daily. (Patient taking differently: Take 200 mg by mouth twice daily. ) lisinopril (PRINIVIL) 10 mg tablet Take 1 tablet by mouth once daily. azaTHIOprine (IMURAN) 50 mg tablet Take 3 tablets by mouth once daily. (Patient taking differently: Take 100 mg by mouth once daily. ) [place]-3 Fatty Acids (FISH OIL) 500 mg cap Take 2 capsules by mouth once daily. rosuvastatin (CRESTOR) 5 mg tablet Take 1 tablet every M, W and . folic acid 1 mg tablet Take 1 tablet by mouth once daily. aspirin, enteric coated 81 mg ORAL EC tablet Take 1 tablet by mouth once daily. COMPOUNDED PRESCRIPTION Standing order:PATIENT/INR: A. FibFax to [phone] potassium acetate as directed. takes 1 tablet 3 times per week Garlic 1,000 mg cap Take by mouth once daily. cyanocobalamin (VITAMIN B-12) 1,000 mcg tab Take 1 tablet 4 days per week (Patient not taking: Reported on 03/24/2018 ) COMPOUNDED PRESCRIPTION Protime Dx:I48.91 Standing order: monthly and prn Fax results to Dr. Stuart: [phone] CPAP 1 Device. and supplies use as directed. Dx: GAURI No current facility-administered medications for this visit. ALLERGIES: ALLERGIES Allergen Reactions - Penicillins Hives - Sulfa (Sulfonamide * Intolerance can not remember the side effect - Crestor [Rosuvastat* Other: See Comments Myalgias - Lipitor [Atorvastat* Other: See Comments heavy legs - Norvasc [Amlodipine* Intolerance stasis edema PAST MEDICAL HISTORY Diagnosis Date - Arrhythmia - Atrial fibrillation (HCC) - Coronary atherosclerosis of unspecified type of vessel, confederated salish or graft - Difficult intubation requires fiberoptic intubation - Diverticulosis of colon (without mention of hemorrhage) - Family history of prostate cancer - Nonspecific elevation of levels of transaminase or lactic acid dehydrogenase (LDH) 04/26/2010 - Obstructive sleep apnea - Pain in joint, lower leg 09/18/2006 - Pure hypercholesterolemia - Ulcerative colitis, unspecified - Unspecified essential hypertension PAST SURGICAL HISTORY Procedure Laterality Date - COLONOSCOP W/ OR W/O BRS SPEC 10/04, 11/27/2005 Colonoscopy - COLONOSCOP W/ OR W/O BRS SPEC 03/21/2008 Colonoscopy - COLONOSCOP W/ OR W/O BRS SPEC 05/13/2012 Colonoscopy repeat 18 months - COLONOSCOP W/ OR W/O BRSH SPEC 06/21/15 Colonoscopy - COLONOSCOP W/ OR W/O BRSH SPEC 08/10/2017 repeat 5 years - COLONOSCOPY W/BX 04/28/07 - HEART SURGERY HX - PAST SURGICAL HISTORY OF 04/2003 heart surgery - SIGMOIDOSCOPY FLEX DIAG 1983, 03/10/1996 Sigmoidoscopy FAMILY HISTORY Problem Relation Age of Onset - Heart Father mi age 70 - Prostate Cancer Father in his late 70's - Alzheimer's Disease Mother - Heart Brother Social History Marital status: Spouse name: Fariha Years of education: Number of children: 0 Occupational History Occupation Employer Comment [employer]* Social History Main Topics Smoking status: Former Smoker Packs/day: 0.00 Years: 0.00 Quit date: 04/02/2004 Smokeless tobacco: Never Used Alcohol use: No Drug use: No Sexual activity: Yes Partners with: Female Reviewed current medications, allergies, past medical history, surgical history, family history and social history today. REVIEW OF SYSTEMS All other reviewed and negative other than HPI. VITALS: BP 129/80 Pulse 64 Resp 16 Last 4 Encounter Wt Readings: Date: Wt: 03/24/2018 97.5 kg (215 lb) 03/01/2018 97.1 kg (214 lb 1.6 oz) 07/28/2017 100.7 kg (222 lb) 07/01/2017 101.6 kg (224 lb) PHYSICAL EXAMINATION: General appearance: Well appearing, alert, in no acute distress, well-hydrated, well nourished. Skin: Skin color, texture, turgor normal, no suspicious rashes or lesions Head: Normocephalic, no masses, lesions, tenderness or abnormalities Lungs: Lungs clear to auscultation. No wheezing, rhonchi, rales Heart: RRR without murmur, gallop, or rubs. No ectopy Abdomen: Normal abdominal exam, Abdomen soft, non-tender. Bowel sounds normal. No masses, organomegaly Extremities: No deformities, edema, palpable lump in left calf. Slightly tender. No redness or warmth. ASSESSMENT/PLAN: 1. Pain of left lower extremity - ICD9: 729.5, ICD10: M79.605 (primary diagnosis) - monitor. Check duplex. - Red flags for re-assessment reviewed with patient in detail. - Call if symptoms worsen at all or if not better in one to two weeks - US LEG VEIN DVT UNL VAS LAB 2. Atrial fibrillation, unspecified type (HCC) - ICD9: 427.31, ICD10: I48.91 - PROTHROMBIN TIME/PT Leena Ozuna MD Referring Provider: SELF [200] Allergies As of Date: 04/14/2018 Noted Allergy Reaction PENICILLINS 09/18/2005 4 - Hives SULFA (SULFONAMIDE ANTIBIOTICS) 09/18/2005 5 - Intolerance Comments: can not remember the side effect CRESTOR (ROSUVASTATIN CALCIUM) 01/21/2011 14 - Other: See Comments Comments: Myalgias LIPITOR (ATORVASTATIN CALCIUM) 04/29/2011 14 - Other: See Comments Comments: heavy legs NORVASC (AMLODIPINE BESYLATE) 11/18/2011 5 - Intolerance Comments: stasis edema Date Reviewed: 04/08/2018 Reviewed by: Marci Orozco RN - Fully Assessed Reason for Visit: Mass [64] Cmt: left calf Primary Visit Diagnosis:Pain of left lower extremity [M79.605] Other Visit Diagnosis:Atrial fibrillation, unspecified type (HCC) [I48.91] Order(s):US LEG VEIN DVT UNL VAS LAB [[id number]] Order #: [id number] FUTURE PROTHROMBIN TIME/PT [SQPT] Order #: [id number] FUTURE Prescriptions as of 04/14/2018 Sig: WARFARIN 4 MG TABLET Take 2 mg Tues and 4 mg all o* WARFARIN 2 MG TABLET Take 2 mg Tues and 4 mg all o* LABETALOL 200 MG TABLET Take 1 tablet by mouth once d* Patient taking differently: Take 200 mg by mouth twice da* LISINOPRIL 10 MG TABLET Take 1 tablet by mouth once d* AZATHIOPRINE 50 MG TABLET Take 3 tablets by mouth once * Patient taking differently: Take 100 mg by mouth once marisabel* [place]-3 FATTY ACIDS 500 MG CA* Take 2 capsules by mouth once* ROSUVASTATIN 5 MG TABLET Take 1 tablet every , W and * FOLIC ACID 1 MG TABLET Take 1 tablet by mouth once d* ASPIRIN 81 MG TABLET,DELAYED * Take 1 tablet by mouth once d* COMPOUNDED PRESCRIPTION Standing order: PATIENT/INR:* POTASSIUM ACETATE as directed. takes 1 tablet 3* GARLIC 1,000 MG CAPSULE Take by mouth once daily. CYANOCOBALAMIN (VIT B-12) 1,0* Take 1 tablet 4 days per week Patient not taking: Reported on 03/24/2018 COMPOUNDED PRESCRIPTION Protime Dx:I48.91 Standing o* CPAP 1 Device. and supplies use as* Problem List As Of Date 04/14/2018 Noted Resolved Ulcerative colitis (HCC) [K51.90] INVALID FOR* More... Coronary atherosclerosis [I25.10] PURE HYPERCHOLESTEROLEM [E78.00] Essential hypertension [I10] More... Pain in joint, lower leg [M25.569] INVALID FOR*12/07/2016 ATRIAL FIBRILLATION [I48.91] INVALID FOR* Nonspecific elevation of levels of transaminase*INVALID FOR*12/07/2016 Myalgia [M79.1] INVALID FOR*12/07/2016 Hyperglycemia [R73.9] INVALID FOR* ASHD (arteriosclerotic heart disease) [I25.10] INVALID FOR* GAURI (obstructive sleep apnea) [G47.33] INVALID FOR* Anticoagulation goal of INR 2 to 3 [Z51.81, Z79*INVALID FOR* Anemia due to vitamin B12 deficiency [D51.9] INVALID FOR* Ulcerative chronic pancolitis without complicat*INVALID FOR* More... Obesity (BMI 30.0-34.9) [E66.9] INVALID FOR* Visit Notes: >> Edda Banda YACHT HAND ThuApr 14, 2018 11:56 AM Status: Signed Patient complains of: lump. Duration: noticed on thursday Location:left calf Associated Symptoms: only painful when rubs it Concerned about blood clot Encounter Status:Closed by ELENA OZUNA MD on 04/14/18 PROGRESS Observed: 04/08/2018 Status: COMPLETED Source: [place] 1:03 PM [facility] REPOSITORY HNO ID: [id number] Author: Leena Ozuna Service: (none) Author Type: Physician Type: Progress Notes Filed: 04/08/2018 1:03 PM Note Text: This note was created using Cellesriter. Subjective Aleksey Leon is a 62 year old male. Review of Systems Objective There were no vitals taken for this visit. Physical Exam Assessment and Plan agree PROGRESS Observed: 04/08/2018 Status: COMPLETED Source: [place] 10:09 AM [facility] REPOSITORY HNO ID: [id number] Author: Marci Orozco RN Service: (none) Author Type: (none) Type: Progress Notes Filed: 04/08/2018 10:11 AM Note Text: patient had inr completed at [facility] patients inr is 2.0 (patients inr range is 2.0-3.0) patient is currently taking 2mg Tues and 4mg all other days patients last dose change was on 03/12/18 due to a low level of 1.7 (dose at that time was 2mg Tues Sat and 4mg all other days) patient has had no changes in medication and no missed doses and no change in diet Advised patient to continue on the same dose(s) and that they would only be contacted regarding dosage and follow up instructions after review with provider, if a change is needed. Written instructions given and patient verbalized understanding. Presently scheduled in 2 weeks (04/22/18) for follow up INR. HEPATIC FUNCTN PANEL Collected: 03/24/2018 Status: F Source: [place] 4:32 PM [facility] REPOSITORY TYPE CODE TESTS RESULT OUT OF REFERENCE UNITS RANGE LAB ALB 3.9-4.9 g/dL Albumin 4.1 LAB TBIL 0.2-1.3 mg/dL Bilirubin, Total 0.6 LAB CBIL <0.2 mg/dL Bilirubin,Conjuga <0.2 calixto LAB ALKP 36-108 U/L Alkaline Phosphatase 105 LAB AST 14-40 U/L AST 25 LAB ALT 10-54 U/L ALT 16 LAB TP 6.3-8.0 g/dL Protein, Total 7.3 Performed By: #### HFP, PTHI, ICA #### [facility] [employer] [address] [address] PTH, INTACT Collected: 03/24/2018 Status: F Source: [place] 4:32 [facility] REPOSITORY TYPE CODE TESTS RESULT OUT OF REFERENCE UNITS RANGE LAB PTH 15-65 pg/mL PTH, Intact 30 Performed By: #### HFP, PTHI, ICA #### [facility] [employer] [address] [address] CALCIUM, IONIZED Collected: 03/24/2018 Status: F Source: [place] 4:32 [facility] REPOSITORY TYPE CODE TESTS RESULT OUT OF REFERENCE UNITS RANGE LAB ICAL 1.08-1.30 mmol/L Calcium, High Ionized 1.34 LAB NCA 1.08-1.30 mmol/L Calcium, Normalized 1.29 Performed By: #### HFP, PTHI, ICA #### [facility] [employer] [address] [address] BASIC METABOLIC PANL Collected: 03/24/2018 Status: F Source: [place] 4:32 [facility] REPOSITORY TYPE CODE TESTS RESULT OUT OF REFERENCE UNITS RANGE LAB GLU 74-99 mg/dL Glucose 85 Result Comment: The [place] Diabetes Association (ADA) provides guidance for cutoff values for fasting glucose and random glucose. The ADA defines fasting as no caloric intake for at least 8 hours. Fas ting plasma glucose results between 100 to 125 mg/dL indicate increased risk for diabetes (prediabetes). Fasting plasma glucose results greater than or equal to 126 mg/dL meet the criteria for diagnosis of diabetes. In the absence of unequivocal hyperglycemia, results should be confirmed by repeat testing. In a patient with classic symptoms of hyperglycemia or hyperglycemic crisis, random plasma glucose results greater than or equal to 200 mg/dL meet the criteria for diagnosis of diabetes. Reference: Standards of Medical Care in Diabetes 2016, [place] Diabetes Association. Diabetes Care. 2016.39(Suppl 1). LAB BUN 9-24 mg/dL BUN High 28 LAB CRET 0.73-1.22 mg/dL Creatinine 1.00 LAB NA 136-144 mmol/L Sodium 138 LAB K 3.7-5.1 mmol/L Potassium 4.6 LAB CL 97-105 mmol/L Chloride 104 LAB CO2 22-30 mmol/L Low CO2 20 LAB AGAP 9-18 mmol/L Anion Gap 14 LAB CA 8.5-10.2 mg/dL Calcium, High Total 10.4 LAB GFRAA eGFR- Amer. >60 LAB GFRNAA . eGFR-All Other Races >60 Result Comment: eGFR (Estimated GFR) Units of measure: mL/min/1.73 meters squared eGFR is derived from the reexpressed MDRD Study equation using the following parameters: serum creatinine, age, gender and race. The creatinine assay has been calibrated to be traceable to IDMS. An eGFR <60 mL/min/1.73m2 for >3 months is consistent with chronic kidney disease. Refer to KDOQI guidelines for clinical interpretation. In patients with unstable renal function, e.g. those with acute kidney injury, the eGFR may not accurately reflect actual GFR. Performed By: #### BMP #### [facility] [employer] [address] [place] [id number] PROGRESS Observed: 03/24/2018 Status: COMPLETED Source: [place] 4:02 PM [facility] REPOSITORY HNO ID: [id number] Author: Leena Ozuna Service: (none) Author Type: Physician Type: Progress Notes Filed: 03/24/2018 4:03 PM Note Text: This note was created using NoteWriter. Subjective Aleksey Leon is a 62 year old male. Review of Systems Objective There were no vitals taken for this visit. Physical Exam Assessment and Plan agree PROGRESS Observed: 03/24/2018 Status: COMPLETED Source: [place] 3:49 PM [facility] REPOSITORY HNO ID: [id number] Author: Leena Ozuna Service: (none) Author Type: Physician Type: Progress Notes Filed: 03/24/2018 4:15 PM Note Text: Patient presents with: Hospital F/U HPI: Patient presents today for office visit for follow up. Nursing Notes: Edda Banda LPN 03/24/2018 3:24 PM Signed HOSPITAL/ER FOLLOW UP: Reason for visit: CHF Which facility: [facility] Date of visit: December Diagnosis: CHF Current symptoms: feeling better now Has made diet changes, no longer drinking alcohol, walking daily, has lost weight. Monitoring blood pressure at home and is running 120/80 and below. Had gotten increased shortness of breath and edema. Saw Dr. Avalos since. Has a follow up echo. Following his valves. No chest pain or shortness of breath. No edema. Has lost nearly thirty lbs. Has stopped etoh. He is walking three to five miles each diet. Is on the low glycemic index diet. inr is up to date. No bleeding or bruising issues. Occasional myalgias. Still on immuran. Gi issues are stable. They stopped his b12 as well. Component Latest Ref Rng AND Units 03/19/2018 WBC 3.70 - 11.00 k/uL 5.09 RBC 4.20 - 6.00 m/uL 4.27 Hemoglobin 13.0 - 17.0 g/dL 14.6 Hematocrit 39.0 - 51.0 % 44.8 MCV 80.0 - 100.0 fL 104.9 (H) MCH 26.0 - 34.0 pG 34.2 (H) MCHC 30.5 - 36.0 g/dL 32.6 RDW-CV 11.5 - 15.0 % 14.0 Platelet Count 150 - 400 k/uL 295 MPV 9.0 - 12.7 fL 10.5 Neut% % 61.7 Abs Neut (ANC) 1.45 - 7.50 k/uL 3.12 Lymph% % 12.4 Abs Lymph 1.00 - 4.00 k/uL 0.63 (L) Young% % 19.6 Abs Young <0.87 k/uL 1.00 (H) Eosin% % 5.3 Abs Eosin <0.46 k/uL 0.27 Baso% % 1.0 Abs Baso <0.11 k/uL 0.05 Nucleated Reds 0 /100 WBC 0.0 Absolute nRBC <0.01 k/uL <0.01 Diff Type Auto Diff Glucose 74 - 99 mg/dL 100 (H) BUN 9 - 24 mg/dL 28 (H) Creatinine 0.73 - 1.22 mg/dL 1.08 Sodium 136 - 144 mmol/L 141 Potassium 3.7 - 5.1 mmol/L 4.7 Chloride 97 - 105 mmol/L 103 CO2 22 - 30 mmol/L 23 Anion Gap 9 - 18 mmol/L 15 Calcium 8.5 - 10.2 mg/dL 10.3 (H) eGFR- >60 eGFR-All Other Races . >60 Hemoglobin A1C 4.3 - 5.6 % 6.1 (H) Estimated Average Glucose mg/dL 128 MEDICATIONS: Current Outpatient Prescriptions: warfarin (COUMADIN) 4 mg tablet Take 2 mg Tues and 4 mg all other days or as directed. warfarin (COUMADIN) 2 mg tablet Take 2 mg Tues and 4 mg all other days or as directed. labetalol (TRANDATE) 200 mg tablet Take 1 tablet by mouth once daily. (Patient taking differently: Take 200 mg by mouth twice daily. ) lisinopril (PRINIVIL) 10 mg tablet Take 1 tablet by mouth once daily. azaTHIOprine (IMURAN) 50 mg tablet Take 3 tablets by mouth once daily. (Patient taking differently: Take 100 mg by mouth once daily. ) [place]-3 Fatty Acids (FISH OIL) 500 mg cap Take 2 capsules by mouth once daily. rosuvastatin (CRESTOR) 5 mg tablet Take 1 tablet every M, W and F. CPAP 1 Device. and supplies use as directed. Dx: GAURI aspirin, enteric coated 81 mg ORAL EC tablet Take 1 tablet by mouth once daily. COMPOUNDED PRESCRIPTION Standing order:PATIENT/INR: A. FibFax to [phone] potassium acetate as directed. takes 1 tablet 3 times per week Garlic 1,000 mg cap Take by mouth once daily. cyanocobalamin (VITAMIN B-12) 1,000 mcg tab Take 1 tablet 4 days per week (Patient not taking: Reported on 03/24/2018 ) COMPOUNDED PRESCRIPTION Protime Dx:I48.91 Standing order: monthly and prn Fax results to Dr. Stuart: [phone] folic acid 1 mg tablet Take 1 tablet by mouth once daily. (Patient not taking: Reported on 03/24/2018 ) No current facility-administered medications for this visit. ALLERGIES: ALLERGIES Allergen Reactions - Penicillins Hives - Sulfa (Sulfonamide * Intolerance can not remember the side effect - Crestor [Rosuvastat* Other: See Comments Myalgias - Lipitor [Atorvastat* Other: See Comments heavy legs - Norvasc [Amlodipine* Intolerance stasis edema PAST MEDICAL HISTORY Diagnosis Date - Arrhythmia - Atrial fibrillation (HCC) - Coronary atherosclerosis of unspecified type of vessel, [place] or graft - Difficult intubation requires fiberoptic intubation - Diverticulosis of colon (without mention of hemorrhage) - Family history of prostate cancer - Nonspecific elevation of levels of transaminase or lactic acid dehydrogenase (LDH) 04/26/2010 - Obstructive sleep apnea - Pain in joint, lower leg 09/18/2006 - Pure hypercholesterolemia - Ulcerative colitis, unspecified - Unspecified essential hypertension PAST SURGICAL HISTORY Procedure Laterality Date - COLONOSCOP W/ OR W/O BRS SPEC 10/04, 11/27/2005 Colonoscopy - COLONOSCOP W/ OR W/O BRS SPEC 03/21/2008 Colonoscopy - COLONOSCOP W/ OR W/O BRS SPEC 05/13/2012 Colonoscopy repeat 18 months - COLONOSCOP W/ OR W/O BRSH SPEC 06/21/15 Colonoscopy - COLONOSCOP W/ OR W/O BRS SPEC 08/10/2017 repeat 5 years - COLONOSCOPY W/BX 04/28/07 - HEART SURGERY HX - PAST SURGICAL HISTORY OF 04/2003 heart surgery - SIGMOIDOSCOPY FLEX DIAG 1983, 03/10/1996 Sigmoidoscopy FAMILY HISTORY Problem Relation Age of Onset - Heart Father mi age 70 - Prostate Cancer Father in his late 70's - Alzheimer's Disease Mother - Heart Brother Social History Marital status: Spouse name: Fariha Years of education: Number of children: 0 Occupational History Occupation Employer Comment [employer]* Social History Main Topics Smoking status: Former Smoker Packs/day: 0.00 Years: 0.00 Quit date: 04/02/2004 Smokeless tobacco: Never Used Alcohol use: No Drug use: No Sexual activity: Yes Partners with: Female Reviewed current medications, allergies, past medical history, surgical history, family history and social history today. REVIEW OF SYSTEMS All other reviewed and negative other than HPI. HEALTH MAINTENANCE: Reviewed health maintenance issues today and recommended the following in detail. There are no preventive care reminders to display for this patient. VITALS: BP 122/84 Pulse 72 Resp 14 Wt 97.5 kg (215 lb) BMI 32.69 kg/m? Last 4 Encounter Wt Readings: Date: Wt: 03/24/2018 97.5 kg (215 lb) 03/01/2018 97.1 kg (214 lb 1.6 oz) 07/28/2017 100.7 kg (222 lb) 07/01/2017 101.6 kg (224 lb) PHYSICAL EXAMINATION: General appearance: Well appearing, alert, in no acute distress, well-hydrated, well nourished. Skin: Skin color, texture, turgor normal, no suspicious rashes or lesions Neck: Supple, no adenopathy; thyroid symmetric, normal size, no bruits Lungs: Lungs clear to auscultation. No wheezing, rhonchi, rales Heart: RRR without murmur, gallop, or rubs. No ectopy Abdomen: Normal abdominal exam, Abdomen soft, non-tender. Bowel sounds normal. No masses, organomegaly Extremities: No deformities, edema, skin discoloration, clubbing or cyanosis. Good capillary refill. ASSESSMENT/PLAN: 1. Congestive heart failure, unspecified HF chronicity, unspecified heart failure type (HCC) - ICD9: 428.0, ICD10: I50.9 (primary diagnosis) - call if any issues. Get echo. 2. Hypercalcemia - ICD9: 275.42, ICD10: E83.52 - recheck labs. - CALCIUM IONIZED B - PTH INTACT BLD 3. Pure hypercholesterolemia - ICD9: 272.0, ICD10: E78.00 - good control - Continue current medication. - HEPATIC FUNCTION PNL 4. Essential hypertension - ICD9: 401.9, ICD10: I10 - good control - Continue current medication(s) - Goal of BP <140/90 5. Atrial fibrillation, unspecified type (HCC) - ICD9: 427.31, ICD10: I48.91 - call if any issues. 6. Hyperglycemia - ICD9: 790.29, ICD10: R73.9 - follow labs. 7. Ulcerative pancolitis without complication (HCC) - ICD9: 556.6, ICD10: K51.00 - call if any issues. 8. Atherosclerosis of [place] coronary artery of [place] heart without angina pectoris - ICD9: 414.01, ICD10: I25.10 - call if any issues. 9. Other vitamin B12 deficiency anemia - ICD9: 281.1, ICD10: D51.8 - now off of b12 Leena Ozuna MD RTO in six months and prn. PROGRESS Observed: 03/24/2018 Status: COMPLETED Source: [place] 3:22 PM [facility] REPOSITORY HNO ID: [id number] Author: Marci Orozco RN Service: (none) Author Type: (none) Type: Progress Notes Filed: 03/24/2018 3:23 PM Note Text: patient had inr completed at [facility] patients inr is 2.0 (patients inr range is 2.0-3.0) patient is currently taking 2mg Tues and 4mg all other days patients last dose change was on 03/12/18 due to a low level of 1.7 (dose at that time was 2mg Tues,Sat and 4mg all other days) patient has had no changes in medication except for the coumadin and no missed doses and no change in diet Advised patient to continue on the same dose(s) and that they would only be contacted regarding dosage and follow up instructions after review with provider, if a change is needed. Written instructions given and patient verbalized understanding. Presently scheduled in 2 weeks (04/08/18) for follow up INR. CNOV Observed: 03/24/2018 Status: COMPLETED Source: [place] 3:20 PM [facility] REPOSITORY Office Visit (FAMPWS) ALEKSEY LEON ([id number]) 1955 M Date Time Provider Department 03/24/18 3:20 LEENA FELICIANO During your visit today, we recorded the following information about you: Pulse Respiration Blood pressure Weight 72/minute 14/minute 122/84 97.5 kg Edda Banda JEMMA 03/24/2018 3:24 PM Signed HOSPITAL/ER FOLLOW UP: Reason for visit: CHF Which facility: [facility] Date of visit: December Diagnosis: CHF Current symptoms: feeling better now Has made diet changes, no longer drinking alcohol, walking daily, has lost weight. Monitoring blood pressure at home and is running 120/80 and below. Leena Ozuna MD 03/24/2018 4:15 PM Signed Patient presents with: Hospital F/U HPI: Patient presents today for office visit for follow up. Nursing Notes: Edda Banda JEMMA 03/24/2018 3:24 PM Signed HOSPITAL/ER FOLLOW UP: Reason for visit: CHF Which facility: [facility] Date of visit: December Diagnosis: CHF Current symptoms: feeling better now Has made diet changes, no longer drinking alcohol, walking daily, has lost weight. Monitoring blood pressure at home and is running 120/80 and below. Had gotten increased shortness of breath and edema. Saw Dr. Avalos since. Has a follow up echo. Following his valves. No chest pain or shortness of breath. No edema. Has lost nearly thirty lbs. Has stopped etoh. He is walking three to five miles each diet. Is on the low glycemic index diet. inr is up to date. No bleeding or bruising issues. Occasional myalgias. Still on immuran. Gi issues are stable. They stopped his b12 as well. Component Latest Ref Rng AND Units 03/19/2018 WBC 3.70 - 11.00 k/uL 5.09 RBC 4.20 - 6.00 m/uL 4.27 Hemoglobin 13.0 - 17.0 g/dL 14.6 Hematocrit 39.0 - 51.0 % 44.8 MCV 80.0 - 100.0 fL 104.9 (H) MCH 26.0 - 34.0 pG 34.2 (H) MCHC 30.5 - 36.0 g/dL 32.6 RDW-CV 11.5 - 15.0 % 14.0 Platelet Count 150 - 400 k/uL 295 MPV 9.0 - 12.7 fL 10.5 Neut% % 61.7 Abs Neut (ANC) 1.45 - 7.50 k/uL 3.12 Lymph% % 12.4 Abs Lymph 1.00 - 4.00 k/uL 0.63 (L) Young% % 19.6 Abs Young <0.87 k/uL 1.00 (H) Eosin% % 5.3 Abs Eosin <0.46 k/uL 0.27 Baso% % 1.0 Abs Baso <0.11 k/uL 0.05 Nucleated Reds 0 /100 WBC 0.0 Absolute nRBC <0.01 k/uL <0.01 Diff Type Auto Diff Glucose 74 - 99 mg/dL 100 (H) BUN 9 - 24 mg/dL 28 (H) Creatinine 0.73 - 1.22 mg/dL 1.08 Sodium 136 - 144 mmol/L 141 Potassium 3.7 - 5.1 mmol/L 4.7 Chloride 97 - 105 mmol/L 103 CO2 22 - 30 mmol/L 23 Anion Gap 9 - 18 mmol/L 15 Calcium 8.5 - 10.2 mg/dL 10.3 (H) eGFR- >60 eGFR-All Other Races . >60 Hemoglobin A1C 4.3 - 5.6 % 6.1 (H) Estimated Average Glucose mg/dL 128 MEDICATIONS: Current Outpatient Prescriptions: warfarin (COUMADIN) 4 mg tablet Take 2 mg Tues and 4 mg all other days or as directed. warfarin (COUMADIN) 2 mg tablet Take 2 mg Tues and 4 mg all other days or as directed. labetalol (TRANDATE) 200 mg tablet Take 1 tablet by mouth once daily. (Patient taking differently: Take 200 mg by mouth twice daily. ) lisinopril (PRINIVIL) 10 mg tablet Take 1 tablet by mouth once daily. azaTHIOprine (IMURAN) 50 mg tablet Take 3 tablets by mouth once daily. (Patient taking differently: Take 100 mg by mouth once daily. ) [place]-3 Fatty Acids (FISH OIL) 500 mg cap Take 2 capsules by mouth once daily. rosuvastatin (CRESTOR) 5 mg tablet Take 1 tablet every M, W and F. CPAP 1 Device. and supplies use as directed. Dx: GAURI aspirin, enteric coated 81 mg ORAL EC tablet Take 1 tablet by mouth once daily. COMPOUNDED PRESCRIPTION Standing order:PATIENT/INR: A. FibFax to [phone] potassium acetate as directed. takes 1 tablet 3 times per week Garlic 1,000 mg cap Take by mouth once daily. cyanocobalamin (VITAMIN B-12) 1,000 mcg tab Take 1 tablet 4 days per week (Patient not taking: Reported on 03/24/2018 ) COMPOUNDED PRESCRIPTION Protime Dx:I48.91 Standing order: monthly and prn Fax results to Dr. Stuart: [phone] folic acid 1 mg tablet Take 1 tablet by mouth once daily. (Patient not taking: Reported on 03/24/2018 ) No current facility-administered medications for this visit. ALLERGIES: ALLERGIES Allergen Reactions - Penicillins Hives - Sulfa (Sulfonamide * Intolerance can not remember the side effect - Crestor [Rosuvastat* Other: See Comments Myalgias - Lipitor [Atorvastat* Other: See Comments heavy legs - Norvasc [Amlodipine* Intolerance stasis edema PAST MEDICAL HISTORY Diagnosis Date - Arrhythmia - Atrial fibrillation (HCC) - Coronary atherosclerosis of unspecified type of vessel, [place] or graft - Difficult intubation requires fiberoptic intubation - Diverticulosis of colon (without mention of hemorrhage) - Family history of prostate cancer - Nonspecific elevation of levels of transaminase or lactic acid dehydrogenase (LDH) 04/26/2010 - Obstructive sleep apnea - Pain in joint, lower leg 09/18/2006 - Pure hypercholesterolemia - Ulcerative colitis, unspecified - Unspecified essential hypertension PAST SURGICAL HISTORY Procedure Laterality Date - COLONOSCOP W/ OR W/O BRS SPEC 10/04, 11/27/2005 Colonoscopy - COLONOSCOP W/ OR W/O BRS SPEC 03/21/2008 Colonoscopy - COLONOSCOP W/ OR W/O BRS SPEC 05/13/2012 Colonoscopy repeat 18 months - COLONOSCOP W/ OR W/O BRSH SPEC 06/21/15 Colonoscopy - COLONOSCOP W/ OR W/O BRSH SPEC 08/10/2017 repeat 5 years - COLONOSCOPY W/BX 04/28/07 - HEART SURGERY HX - PAST SURGICAL HISTORY OF 04/2003 heart surgery - SIGMOIDOSCOPY FLEX DIAG 1983, 03/10/1996 Sigmoidoscopy FAMILY HISTORY Problem Relation Age of Onset - Heart Father mi age 70 - Prostate Cancer Father in his late 70's - Alzheimer's Disease Mother - Heart Brother Social History Marital status: Spouse name: Fariha Years of education: Number of children: 0 Occupational History Occupation Employer Comment [employer]* Social History Main Topics Smoking status: Former Smoker Packs/day: 0.00 Years: 0.00 Quit date: 04/02/2004 Smokeless tobacco: Never Used Alcohol use: No Drug use: No Sexual activity: Yes Partners with: Female Reviewed current medications, allergies, past medical history, surgical history, family history and social history today. REVIEW OF SYSTEMS All other reviewed and negative other than HPI. HEALTH MAINTENANCE: Reviewed health maintenance issues today and recommended the following in detail. There are no preventive care reminders to display for this patient. VITALS: BP 122/84 Pulse 72 Resp 14 Wt 97.5 kg (215 lb) BMI 32.69 kg/m? Last 4 Encounter Wt Readings: Date: Wt: 03/24/2018 97.5 kg (215 lb) 03/01/2018 97.1 kg (214 lb 1.6 oz) 07/28/2017 100.7 kg (222 lb) 07/01/2017 101.6 kg (224 lb) PHYSICAL EXAMINATION: General appearance: Well appearing, alert, in no acute distress, well-hydrated, well nourished. Skin: Skin color, texture, turgor normal, no suspicious rashes or lesions Neck: Supple, no adenopathy; thyroid symmetric, normal size, no bruits Lungs: Lungs clear to auscultation. No wheezing, rhonchi, rales Heart: RRR without murmur, gallop, or rubs. No ectopy Abdomen: Normal abdominal exam, Abdomen soft, non-tender. Bowel sounds normal. No masses, organomegaly Extremities: No deformities, edema, skin discoloration, clubbing or cyanosis. Good capillary refill. ASSESSMENT/PLAN: 1. Congestive heart failure, unspecified HF chronicity, unspecified heart failure type (HCC) - ICD9: 428.0, ICD10: I50.9 (primary diagnosis) - call if any issues. Get echo. 2. Hypercalcemia - ICD9: 275.42, ICD10: E83.52 - recheck labs. - CALCIUM IONIZED B - PTH INTACT BLD 3. Pure hypercholesterolemia - ICD9: 272.0, ICD10: E78.00 - good control - Continue current medication. - HEPATIC FUNCTION PNL 4. Essential hypertension - ICD9: 401.9, ICD10: I10 - good control - Continue current medication(s) - Goal of BP <140/90 5. Atrial fibrillation, unspecified type (HCC) - ICD9: 427.31, ICD10: I48.91 - call if any issues. 6. Hyperglycemia - ICD9: 790.29, ICD10: R73.9 - follow labs. 7. Ulcerative pancolitis without complication (HCC) - ICD9: 556.6, ICD10: K51.00 - call if any issues. 8. Atherosclerosis of [place] coronary artery of [place] heart without angina pectoris - ICD9: 414.01, ICD10: I25.10 - call if any issues. 9. Other vitamin B12 deficiency anemia - ICD9: 281.1, ICD10: D51.8 - now off of b12 Leena Ozuna MD RTO in six months and prn. Referring Provider: SELF [[id number]] Allergies As of Date: 03/24/2018 Noted Allergy Reaction PENICILLINS 09/18/2005 4 - Hives SULFA (SULFONAMIDE ANTIBIOTICS) 09/18/2005 5 - Intolerance Comments: can not remember the side effect CRESTOR (ROSUVASTATIN CALCIUM) 01/21/2011 14 - Other: See Comments Comments: Myalgias LIPITOR (ATORVASTATIN CALCIUM) 04/29/2011 14 - Other: See Comments Comments: heavy legs NORVASC (AMLODIPINE BESYLATE) 11/18/2011 5 - Intolerance Comments: stasis edema Date Reviewed: 03/24/2018 Reviewed by: Edda Banda LPN - Fully Assessed Reason for Visit: Hospital F/U [57] Primary Visit Diagnosis:Congestive heart failure, unspecified HF chronicity, unspecified heart failure type (HCC) [I50.9] Other Visit Diagnoses:Hypercalcemia [E83.52] Pure hypercholesterolemia [E78.00] Essential hypertension [I10] Atrial fibrillation, unspecified type (HCC) [I48.91] Hyperglycemia [R73.9] Ulcerative pancolitis without complication (HCC) [K51.00] Atherosclerosis of [place] coronary artery of [place] heart without angina pectoris [I25.10] Other vitamin B12 deficiency anemia [D51.8] Order(s):INR (POC) [1277960] Order #: [id number]. #:[id number] CALCIUM IONIZED B [SQICA] Order #: [id number] FUTURE PTH INTACT BLD [SQPTHI] Order #: [id number] FUTURE HEPATIC FUNCTION PNL [SQHFP] Order #: [id number] FUTURE Prescriptions as of 03/24/2018 Sig: WARFARIN 4 MG TABLET Take 2 mg Tues and 4 mg all o* WARFARIN 2 MG TABLET Take 2 mg Tues and 4 mg all o* LABETALOL 200 MG TABLET Take 1 tablet by mouth once d* Patient taking differently: Take 200 mg by mouth twice da* LISINOPRIL 10 MG TABLET Take 1 tablet by mouth once d* AZATHIOPRINE 50 MG TABLET Take 3 tablets by mouth once * Patient taking differently: Take 100 mg by mouth once marisabel* [place]-3 FATTY ACIDS 500 MG CA* Take 2 capsules by mouth once* ROSUVASTATIN 5 MG TABLET Take 1 tablet every M, W and * CPAP 1 Device. and supplies use as* ASPIRIN 81 MG TABLET,DELAYED * Take 1 tablet by mouth once d* COMPOUNDED PRESCRIPTION Standing order: PATIENT/INR:* POTASSIUM ACETATE as directed. takes 1 tablet 3* GARLIC 1,000 MG CAPSULE Take by mouth once daily. CYANOCOBALAMIN (VIT B-12) 1,0* Take 1 tablet 4 days per week Patient not taking: Reported on 03/24/2018 COMPOUNDED PRESCRIPTION Protime Dx:I48.91 Standing o* FOLIC ACID 1 MG TABLET Take 1 tablet by mouth once d* Patient not taking: Reported on 03/24/2018 Problem List As Of Date 03/24/2018 Noted Resolved Ulcerative colitis (HCC) [K51.90] INVALID FOR* More... Coronary atherosclerosis [I25.10] PURE HYPERCHOLESTEROLEM [E78.00] Essential hypertension [I10] More... Pain in joint, lower leg [M25.569] INVALID FOR*12/07/2016 ATRIAL FIBRILLATION [I48.91] INVALID FOR* Nonspecific elevation of levels of transaminase*INVALID FOR*12/07/2016 Myalgia [M79.1] INVALID FOR*12/07/2016 Hyperglycemia [R73.9] INVALID FOR* ASHD (arteriosclerotic heart disease) [I25.10] INVALID FOR* GAURI (obstructive sleep apnea) [G47.33] INVALID FOR* Anticoagulation goal of INR 2 to 3 [Z51.81, Z79*INVALID FOR* Anemia due to vitamin B12 deficiency [D51.9] INVALID FOR* Ulcerative chronic pancolitis without complicat*INVALID FOR* More... Obesity (BMI 30.0-34.9) [E66.9] INVALID FOR* Visit Notes: >> Edda Banda YACHT HAND ThuMarch 24, 2018 3:15 PM Status: Signed HOSPITAL/ER FOLLOW UP: Reason for visit: CHF Which facility: [facility] Date of visit: December Diagnosis: CHF Current symptoms: feeling better now Has made diet changes, no longer drinking alcohol, walking daily, has lost weight. Monitoring blood pressure at home and is running 120/80 and below. Disposition: Return in about 6 months (around 09/24/2018). Follow-up and Disposition History Recorded Encounter Status:Closed by LEENA OZUNA MD on 03/24/18 CBC AND DIFFERENTIAL Collected: 03/19/2018 Status: F Source: [place] 8:00 AM [facility] REPOSITORY TYPE CODE TESTS RESULT OUT OF REFERENCE UNITS RANGE LAB WBC 3.70-11.00 k/uL WBC 5.09 LAB RBC 4.20-6.00 m/uL RBC 4.27 LAB HGB 13.0-17.0 g/dL Hemoglobin 14.6 LAB HCT 39.0-51.0 % Hematocrit 44.8 LAB MCV 80.0-100.0 fL MCV High 104.9 LAB MCH 26.0-34.0 pG MCH High 34.2 LAB MCHC 30.5-36.0 g/dL MCHC 32.6 LAB RDWCV 11.5-15.0 % RDW-CV 14.0 LAB PLTCT 150-400 k/uL Platelet Count 295 LAB MPV 9.0-12.7 fL MPV 10.5 LAB ANEUT % Neut% 61.7 LAB AANEUT 1.45-7.50 k/uL Abs Neut 3.12 LAB ALYMP % Lymph% 12.4 LAB AALYMP 1.00-4.00 k/uL Low Abs Lymph 0.63 LAB AMONO % Young% 19.6 LAB AAMONO <0.87 k/uL Abs Young High 1.00 LAB AEOS % Eosin% 5.3 LAB AAEOS <0.46 k/uL Abs Eosin 0.27 LAB ABASO % Baso% 1.0 LAB AABASO <0.11 k/uL Abs Baso 0.05 LAB AUNRBC 0 /100 WBC NRBCs 0.0 LAB ABNRBC <0.01 k/uL Absolute nRBC <0.01 LAB DTYP DTYPE Auto Diff Performed By: #### CBCDIF, BMP, HBA1C #### [facility] [address] [place], [place] [address] BASIC METABOLIC PANL Collected: 03/19/2018 Status: F Source: [place] 8:00 AM [facility] REPOSITORY TYPE CODE TESTS RESULT OUT OF REFERENCE UNITS RANGE LAB GLU 74-99 mg/dL High Glucose 100 Result Comment: The [place] Diabetes Association (ADA) provides guidance for cutoff values for fasting glucose and random glucose. The ADA defines fasting as no caloric intake for at least 8 hours. Fas ting plasma glucose results between 100 to 125 mg/dL indicate increased risk for diabetes (prediabetes). Fasting plasma glucose results greater than or equal to 126 mg/dL meet the criteria for diagnosis of diabetes. In the absence of unequivocal hyperglycemia, results should be confirmed by repeat testing. In a patient with classic symptoms of hyperglycemia or hyperglycemic crisis, random plasma glucose results greater than or equal to 200 mg/dL meet the criteria for diagnosis of diabetes. Reference: Standards of Medical Care in Diabetes 2016, [place] [employer] Association. Diabetes Care. 2016.39(Suppl 1). LAB BUN 9-24 mg/dL BUN High 28 LAB CRET 0.73-1.22 mg/dL Creatinine 1.08 LAB NA 136-144 mmol/L Sodium 141 LAB K 3.7-5.1 mmol/L Potassium 4.7 LAB CL 97-105 mmol/L Chloride 103 LAB CO2 22-30 mmol/L CO2 23 LAB AGAP 9-18 mmol/L Anion Gap 15 LAB CA 8.5-10.2 mg/dL Calcium, High Total 10.3 LAB GFRAA eGFR- Amer. >60 LAB GFRNAA . eGFR-All Other Races >60 Result Comment: eGFR (Estimated GFR) Units of measure: mL/min/1.73 meters squared eGFR is derived from the reexpressed MDRD Study equation using the following parameters: serum creatinine, age, gender and race. The creatinine assay has been calibrated to be traceable to IDMS. An eGFR <60 mL/min/1.73m2 for >3 months is consistent with chronic kidney disease. Refer to KDOQI guidelines for clinical interpretation. In patients with unstable renal function, e.g. those with acute kidney injury, the eGFR may not accurately reflect actual GFR. Performed By: #### CBCDIF, BMP, HBA1C #### [facility] [employer] [address] [place], [place] [address] HEMOGLOBIN A1C Collected: 03/19/2018 Status: F Source: [place] 8:00 AM [facility] REPOSITORY TYPE CODE TESTS RESULT OUT OF REFERENCE UNITS RANGE LAB HGBA1C 4.3-5.6 % High Hemoglobin A1c 6.1 LAB HBA0 mg/dL Est. Average Glucose 128 Result Comment: eAG: (Estimated average glucose) is a calculated value from HgbA1c and is retail service representative of the average blood glucose level in the last 2-3 month period. Performed By: #### CBCDIF, BMP, HBA1C #### [facility] [employer] [address], [place] [address] PROGRESS Observed: 03/12/2018 Status: COMPLETED Source: [place] 3:35 PM [facility] REPOSITORY HNO ID: [id number] Author: Alona Vanegas Ma Service: (none) Author Type: (none) Type: Progress Notes Filed: 03/12/2018 3:36 PM Note Text: Pt notified and voiced understanding. Tracker and med list updated. Alona Vanegas Ma PROGRESS Observed: 03/12/2018 Status: COMPLETED Source: [place] 2:08 PM [facility] REPOSITORY HNO ID: [id number] Author: Leena Ozuna Service: (none) Author Type: Physician Type: Progress Notes Filed: 03/12/2018 3:36 PM Note Text: This note was created using Cellesriter. Subjective Aleksey Leon is a 62 year old male. Review of Systems Objective There were no vitals taken for this visit. Physical Exam Assessment and Plan Change to 4 mg a day except 2 mg on . Recheck one week. Bmp is already ordered for labs after hospitalization. PROGRESS Observed: 03/12/2018 Status: COMPLETED Source: [place] 9:53 AM [facility] REPOSITORY HNO ID: [id number] Author: Marci Orozco RN Service: (none) Author Type: (none) Type: Progress Notes Filed: 03/12/2018 9:55 AM Note Text: patient had inr completed at [facility] patients inr is 1.7 (patients inr range is 2.0-3.0) patient is currently taking 2mg Tues,Sat and 4mg all other days patients last dose change was on 03/04/18 due to a low level of 1.5 (dose at that time was 2mg Tues,Thurs, Sat and 4mg all other days) patient has had no changes in medication except for coumadin and no missed doses and no change in diet patient is wanting to know you need to order any different lab work for him to completed before his appt on 03/24/18 to follow up from being in the hosp in [place] for dx of CHF, a BMP is ordered already Advised patient that they would be contacted regarding medication dose and when to follow up after information is reviewed by provider. After provider review please contact the patient with information and schedule follow up appointment with coumadin clinic. FYI- patient has been scheduled for a 2 week follow up inr on 03/24/18 when pt has follow up with pcp PROGRESS Observed: 03/04/2018 Status: COMPLETED Source: [place] 2:00 PM [facility] REPOSITORY HNO ID: [id number] Author: Sadaf Brown Ma Service: (none) Author Type: (none) Type: Progress Notes Filed: 03/05/2018 2:30 PM Note Text: Detailed message left for patient regarding dosage change. Pt asked to call back to scheduled appointment. Tracker and med list updated. Sadaf Brown Ma PROGRESS Observed: 03/04/2018 Status: COMPLETED Source: [place] 1:16 PM [facility] REPOSITORY HNO ID: [id number] Author: Leena Ozuna Service: (none) Author Type: Physician Type: Progress Notes Filed: 03/05/2018 2:30 PM Note Text: This note was created using Cellesriter. Subjective Aleksey Leon is a 62 year old male. Review of Systems Objective There were no vitals taken for this visit. Physical Exam Assessment and Plan 2 mg Calista and Sat. 4 mg a day rest of the week. Recheck in one week. PROGRESS Observed: 03/04/2018 Status: COMPLETED Source: [place] 1:14 PM [facility] REPOSITORY HNO ID: [id number] Author: Isabell Das RN Service: (none) Author Type: (none) Type: Progress Notes Filed: 03/04/2018 1:15 PM Note Text: Patient had INR completed at [facility] Patient's INR is 1.5 Patient is currently taking 2 mg //Thu and 4 mg all other days Patient's last dose change was 02/25/18 due to low INR at 1.2 Patient has had no medication and no change in diet. Advised patient that they would be contacted regarding medication dose and follow-up once reviewed by provider. After provider review, please contact patient with information and schedule follow-up appointment with coumadin clinic. PROGRESS Observed: 03/01/2018 Status: COMPLETED Source: [place] 11:37 AM [facility] OTHER [facility] REPOSITORY HNO ID: [id number] Author: Candy Avalos Service: (none) Author Type: Physician Type: Progress Notes Filed: 03/02/2018 12:59 PM Note Text: PERTINENT CARDIAC HISTORY ASHD - CABGx4 2002 Atrial fib - permanent HTN HL GAURI - on CPAP Syncope - vasovagal RBBB ADHERENCE TO GUIDELINES PORSCHE-I or ARB for HF with prior LVEF<40 (NQF 0081) - met ASA or Plavix for ASHD (NQF 0067) - met Beta christina for ASHD with prior MT or prior LVEF<40 (NQF 0070) - met Beta christina for HF with prior LVEF<40 (NQF 0083) - N/A PORSCHE-I or ARB for ASHD with DM or prior LVEF<40 (NQF 0066) - N/A Statin therapy for ASHD or FHL or DM - met BMI documented and plan if >25 (NQF 0421) - lifestyle recommendation form Tobacco use screening and referral (NQF 0028) - lifestyle recommendation form Recommendation for whole food, plant based diet - lifestyle recommendation form CLINICAL IMPRESSION/PLAN: Aleksey Leon has developed right bundle branch block. We will obtain additional records from [place], including an echocardiogram which he said was performed. If unable to retrieve, echo will be done for him here. I advised him to continue his current medications. He has had mild systolic dysfunction in the past. PORSCHE inhibitor will be continued, as possible. He will continue beta christina for rate control and anti-ischemic effect. Syncope was undoubtedly related to postural hypotension and severe dehydration, although right bundle branch block suggests the possibility of progressive conduction disease. If this is recurrent, we will perform extended monitoring. Renal function has improved. Basic profile will be repeated. Diuretics will be held for the time being, but will likely need to be restarted in the future. I will tentatively see him in 8 months or as needed. If there is increased chest pain or shortness of breath, he has been advised to contact me. Written and verbal health teaching given to patient, patient verbalizes understanding and agrees with treatment plan. DIAGNOSIS FOR VISIT: Atrial fibrillation ASHD HISTORY OF PRESENT ILLNESS Aleksey Leon returns for follow-up of his atrial flutter and coronary disease. He reports that while in [place] over the winter, he had an admission for decompensated heart failure. He was treated aggressively with diuretic and reports that he lost 20 pounds. He had a second admission for syncope, which was ascribed to dehydration. He was discharged without any diuretic and actually less blood pressure medication that he has been on before. He has returned home and has resumed his normal activity. He is walking 4-6 miles daily. He's had no chest discomfort. Exercise tolerance has improved. He's had no orthopnea, edema, palpitations, TIAs, amaurosis. He's had no further syncope. ALLERGIES: ALLERGIES Allergen Reactions - Penicillins Hives - Sulfa (Sulfonamide * Intolerance can not remember the side effect - Crestor [Rosuvastat* Other: See Comments Myalgias - Lipitor [Atorvastat* Other: See Comments heavy legs - Norvasc [Amlodipine* Intolerance stasis edema CURRENT OUTPATIENT MEDICATIONS: labetalol (TRANDATE) 200 mg tablet Take 1 tablet by mouth once daily. azaTHIOprine (IMURAN) 50 mg tablet Take 3 tablets by mouth once daily. rosuvastatin (CRESTOR) 5 mg tablet Take 1 tablet every M, W and F. CPAP 1 Device. and supplies use as directed. Dx: GAURI aspirin, enteric coated 81 mg ORAL EC tablet Take 1 tablet by mouth once daily. lisinopril (PRINIVIL) 10 mg tablet Take 1 tablet by mouth once daily. COMPOUNDED PRESCRIPTION Standing order:PATIENT/INR: A. FibFax to [phone] [place]-3 Fatty Acids (FISH OIL) 500 mg cap Take 2 capsules by mouth once daily. warfarin (COUMADIN) 4 mg tablet Take 4 mg MWFS and 2 mg all other days warfarin (COUMADIN) 2 mg tablet 4mg Thursday and Thursday and Sat and 2 mg all other days - or as directed chlorthalidone (HYGROTON) 25 mg tablet Take 1 tablet by mouth once daily. potassium acetate as directed. takes 1 tablet 3 times per week Garlic 1,000 mg cap Take by mouth once daily. cyanocobalamin (VITAMIN B-12) 1,000 mcg tab Take 1 tablet 4 days per week COMPOUNDED PRESCRIPTION Protime Dx:I48.91 Standing order: monthly and prn Fax results to Dr. Stuart: [phone] folic acid 1 mg tablet Take 1 tablet by mouth once daily. PAST MEDICAL HISTORY Diagnosis Date - Arrhythmia - Atrial fibrillation (HCC) - Coronary atherosclerosis of unspecified type of vessel, confederated salish or graft - Difficult intubation requires fiberoptic intubation - Diverticulosis of colon (without mention of hemorrhage) - Family history of prostate cancer - Nonspecific elevation of levels of transaminase or lactic acid dehydrogenase (LDH) 04/26/2010 - Obstructive sleep apnea - Pain in joint, lower leg 09/18/2006 - Pure hypercholesterolemia - Ulcerative colitis, unspecified - Unspecified essential hypertension PAST SURGICAL HISTORY Procedure Laterality Date - COLONOSCOP W/ OR W/O BRSH SPEC 10/04, 11/27/2005 Colonoscopy - COLONOSCOP W/ OR W/O BRSH SPEC 03/21/2008 Colonoscopy - COLONOSCOP W/ OR W/O BRSH SPEC 05/13/2012 Colonoscopy repeat 18 months - COLONOSCOP W/ OR W/O BRSH SPEC 06/21/15 Colonoscopy - COLONOSCOP W/ OR W/O BRSH SPEC 08/10/2017 repeat 5 years - COLONOSCOPY W/BX 04/28/07 - HEART SURGERY HX - PAST SURGICAL HISTORY OF 04/2003 heart surgery - SIGMOIDOSCOPY FLEX DIAG 1983, 03/10/1996 Sigmoidoscopy FAMILY HISTORY Problem Relation Age of Onset - Heart Father mi age 70 - Prostate Cancer Father in his late 70's - Alzheimer's Disease Mother - Heart Brother Social History Marital status: Spouse name: Fariha Years of education: Number of children: 0 Occupational History Occupation Employer Comment [employer]* Social History Main Topics Smoking status: Former Smoker Packs/day: 0.00 Years: 0.00 Quit date: 04/02/2004 Smokeless tobacco: Never Used Alcohol use: No Drug use: No Sexual activity: Yes Partners with: Female REVIEW OF SYSTEMS: General: No chills, fever, weight loss, night sweats. Respiratory: No productive cough. Cardiac: As noted above. GI: No melena. : No dysuria. Musculoskeletal: No myalgias. PHYSICAL EXAMINATION: S/he is alert and in no distress. VITAL SIGNS: BP 112/74 Pulse 56 Wt 214 lb 1.6 oz (97.1kg) SHEENT: Skin is warm and dry. No xanthelasmas appreciated. Pharynx is benign. There is no oral cyanosis. Neck: supple. No adenopathy or thyroid enlargement. Chest: Clear to percussion and auscultation. Trachea is midline. Air entry is equal. There is no chest wall tenderness. Cardiac: Irregularly irregular rhythm. S1 and S2 are normal. PMI is nondisplaced. There is a 2/6 murmur of tricuspid insufficiency. No click is heard. Carotids are brisk without bruits. JVP is less than 10 cm. Abdomen: Soft and nontender. There are no pulsatile masses or bruits. No liver enlargement. Bowel sounds are active. Extremities: Trace edema. Pulses are intact and symmetrical. No clubbing or cyanosis. No femoral bruits. Neurologic: Grossly normal motor and sensory. S/he is alert and oriented x4. Records from [place] were reviewed. There was evidence of significant dehydration at the time of his second admission. BUN was over 100 and creatinine greater than 2. He has developed a right bundle branch block. Doppler examination showed no high-grade disease. CT showed no acute change. D-dimer was normal. Troponin was undetectable. Records from the first admission were not included. EKG today shows atrial fibrillation with controlled response. There is right bundle branch block, which is new. Electronically Signed: Candy Avalos MD March 01, 2018 11:37 AM CC:Leena Ozuna MD CNOV Observed: 03/01/2018 Status: COMPLETED Source: [place] 11:00 AM [facility] OTHER CAMPUS REPOSITORY Office Visit (AGCARDWST) ALEKSEY LEON ([id number]) 1955 M Date Time Provider Department 03/01/18 11:00 AM CANDY AVALOS AGCARDWST During your visit today, we recorded the following information about you: Pulse Blood pressure Weight 56/minute 112/74 97.1 kg Candy Avalos MD 03/02/2018 12:59 PM Signed PERTINENT CARDIAC HISTORY ASHD - CABGx4 2002 Atrial fib - permanent HTN HL GAURI - on CPAP Syncope - vasovagal RBBB ADHERENCE TO GUIDELINES PORSCHE-I or ARB for HF with prior LVEF<40 (NQF 0081) - met ASA or Plavix for ASHD (NQF 0067) - met Beta christina for ASHD with prior MT or prior LVEF<40 (NQF 0070) - met Beta christina for HF with prior LVEF<40 (NQF 0083) - N/A PORSCHE-I or ARB for ASHD with DM or prior LVEF<40 (NQF 0066) - N/A Statin therapy for ASHD or FHL or DM - met BMI documented and plan if >25 (NQF 0421) - lifestyle recommendation form Tobacco use screening and referral (NQF 0028) - lifestyle recommendation form Recommendation for whole food, plant based diet - lifestyle recommendation form CLINICAL IMPRESSION/PLAN: Aleksey Leon has developed right bundle branch block. We will obtain additional records from [place], including an echocardiogram which he said was performed. If unable to retrieve, echo will be done for him here. I advised him to continue his current medications. He has had mild systolic dysfunction in the past. PORSCHE inhibitor will be continued, as possible. He will continue beta christina for rate control and anti-ischemic effect. Syncope was undoubtedly related to postural hypotension and severe dehydration, although right bundle branch block suggests the possibility of progressive conduction disease. If this is recurrent, we will perform extended monitoring. Renal function has improved. Basic profile will be repeated. Diuretics will be held for the time being, but will likely need to be restarted in the future. I will tentatively see him in 8 months or as needed. If there is increased chest pain or shortness of breath, he has been advised to contact me. Written and verbal health teaching given to patient, patient verbalizes understanding and agrees with treatment plan. DIAGNOSIS FOR VISIT: Atrial fibrillation ASHD HISTORY OF PRESENT ILLNESS Aleksey Leon returns for follow-up of his atrial flutter and coronary disease. He reports that while in [place] over the winter, he had an admission for decompensated heart failure. He was treated aggressively with diuretic and reports that he lost 20 pounds. He had a second admission for syncope, which was ascribed to dehydration. He was discharged without any diuretic and actually less blood pressure medication that he has been on before. He has returned home and has resumed his normal activity. He is walking 4-6 miles daily. He's had no chest discomfort. Exercise tolerance has improved. He's had no orthopnea, edema, palpitations, TIAs, amaurosis. He's had no further syncope. ALLERGIES: ALLERGIES Allergen Reactions - Penicillins Hives - Sulfa (Sulfonamide * Intolerance can not remember the side effect - Crestor [Rosuvastat* Other: See Comments Myalgias - Lipitor [Atorvastat* Other: See Comments heavy legs - Norvasc [Amlodipine* Intolerance stasis edema CURRENT OUTPATIENT MEDICATIONS: labetalol (TRANDATE) 200 mg tablet Take 1 tablet by mouth once daily. azaTHIOprine (IMURAN) 50 mg tablet Take 3 tablets by mouth once daily. rosuvastatin (CRESTOR) 5 mg tablet Take 1 tablet every M, W and F. CPAP 1 Device. and supplies use as directed. Dx: GAURI aspirin, enteric coated 81 mg ORAL EC tablet Take 1 tablet by mouth once daily. lisinopril (PRINIVIL) 10 mg tablet Take 1 tablet by mouth once daily. COMPOUNDED PRESCRIPTION Standing order:PATIENT/INR: A. FibFax to [phone] [place]-3 Fatty Acids (FISH OIL) 500 mg cap Take 2 capsules by mouth once daily. warfarin (COUMADIN) 4 mg tablet Take 4 mg MWFS and 2 mg all other days warfarin (COUMADIN) 2 mg tablet 4mg Thursday and Thursday and Sat and 2 mg all other days - or as directed chlorthalidone (HYGROTON) 25 mg tablet Take 1 tablet by mouth once daily. potassium acetate as directed. takes 1 tablet 3 times per week Garlic 1,000 mg cap Take by mouth once daily. cyanocobalamin (VITAMIN B-12) 1,000 mcg tab Take 1 tablet 4 days per week COMPOUNDED PRESCRIPTION Protime Dx:I48.91 Standing order: monthly and prn Fax results to Dr. Stuart: [phone] folic acid 1 mg tablet Take 1 tablet by mouth once daily. PAST MEDICAL HISTORY Diagnosis Date - Arrhythmia - Atrial fibrillation (HCC) - Coronary atherosclerosis of unspecified type of vessel, confed[place] sal[place] or graft - Difficult intubation requires fiberoptic intubation - Diverticulosis of colon (without mention of hemorrhage) - Family history of prostate cancer - Nonspecific elevation of levels of transaminase or lactic acid dehydrogenase (LDH) 04/26/2010 - Obstructive sleep apnea - Pain in joint, lower leg 09/18/2006 - Pure hypercholesterolemia - Ulcerative colitis, unspecified - Unspecified essential hypertension PAST SURGICAL HISTORY Procedure Laterality Date - COLONOSCOP W/ OR W/O BRSH SPEC 10/04, 11/27/2005 Colonoscopy - COLONOSCOP W/ OR W/O BRSH SPEC 03/21/2008 Colonoscopy - COLONOSCOP W/ OR W/O BRSH SPEC 05/13/2012 Colonoscopy repeat 18 months - COLONOSCOP W/ OR W/O BRSH SPEC 06/21/15 Colonoscopy - COLONOSCOP W/ OR W/O BRSH SPEC 08/10/2017 repeat 5 years - COLONOSCOPY W/BX 04/28/07 - HEART SURGERY HX - PAST SURGICAL HISTORY OF 04/2003 heart surgery - SIGMOIDOSCOPY FLEX DIAG 1983, 03/10/1996 Sigmoidoscopy FAMILY HISTORY Problem Relation Age of Onset - Heart Father mi age 70 - Prostate Cancer Father in his late 70's - Alzheimer's Disease Mother - Heart Brother Social History Marital status: Spouse name: Fariha Years of education: Number of children: 0 Occupational History Occupation Employer Comment [employer]* Social History Main Topics Smoking status: Former Smoker Packs/day: 0.00 Years: 0.00 Quit date: 04/02/2004 Smokeless tobacco: Never Used Alcohol use: No Drug use: No Sexual activity: Yes Partners with: Female REVIEW OF SYSTEMS: General: No chills, fever, weight loss, night sweats. Respiratory: No productive cough. Cardiac: As noted above. GI: No melena. : No dysuria. Musculoskeletal: No myalgias. PHYSICAL EXAMINATION: S/he is alert and in no distress. VITAL SIGNS: BP 112/74 Pulse 56 Wt 214 lb 1.6 oz (97.1kg) SHEENT: Skin is warm and dry. No xanthelasmas appreciated. Pharynx is benign. There is no oral cyanosis. Neck: supple. No adenopathy or thyroid enlargement. Chest: Clear to percussion and auscultation. Trachea is midline. Air entry is equal. There is no chest wall tenderness. Cardiac: Irregularly irregular rhythm. S1 and S2 are normal. PMI is nondisplaced. There is a 2/6 murmur of tricuspid insufficiency. No click is heard. Carotids are brisk without bruits. JVP is less than 10 cm. Abdomen: Soft and nontender. There are no pulsatile masses or bruits. No liver enlargement. Bowel sounds are active. Extremities: Trace edema. Pulses are intact and symmetrical. No clubbing or cyanosis. No femoral bruits. Neurologic: Grossly normal motor and sensory. S/he is alert and oriented x4. Records from [place] were reviewed. There was evidence of significant dehydration at the time of his second admission. BUN was over 100 and creatinine greater than 2. He has developed a right bundle branch block. Doppler examination showed no high-grade disease. CT showed no acute change. D-dimer was normal. Troponin was undetectable. Records from the first admission were not included. EKG today shows atrial fibrillation with controlled response. There is right bundle branch block, which is new. Electronically Signed: Candy Avalos MD March 01, 2018 11:37 AM CC:MD Candy Stearns MD 03/01/2018 11:37 AM Signed LIFESTYLE CHANGE A healthy lifestyle is the most important component of your overall treatment plan. Please give serious thought to the following areas and commit to making buttermaker continuous churn changes. EAT A WHOLE FOOD, PLANT BASED DIET The nutrition your body gets is more important than the medicine you take. What matters most is the overall way you eat. We encourage you to minimize the use of animal products (which include dairy and all meats except fatty fish) and use whole, unprocessed plant foods to provide your protein, vitamins and other nutrients. We have a lot of information to share with you on this topic. We also hold Shared Medical Appointments, where you can come visit with Dr. Avalos in the company of other patients and spend over an hour talking about the challenges of changing the way you eat. This is not a diet. It is a way of life that you will keep with you. EXERCISE REGULARLY It is not important to spend hours in the gym, lifting weights and perspiring heavily. A total of 2-3 hours per week of aerobic (causing you to be moderately short of breath) exercise is sufficient to improve your health. Talk to us before you begin a new exercise program, if you have heart disease or experience shortness of breath or chest pain. REDUCE STRESS Chronic emotional and physical stress leads to disease. Ways of reducing stress include meditation, visualization, prayer, yoga and other forms of relaxation therapy. Consistency is the medina. Find a technique that works for you and do it every day. CULTIVATE RELATIONSHIPS Loneliness and isolation have a major negative impact on health. Seek out others who can love, care for and nurture you. Avoid hurtful relationships. MAINTAIN IDEAL BODY WEIGHT The best way to do this is to do all the things above. Our bodies naturally find the right weight if we keep moving and feed ourselves the right food. If your BMI is greater than 25, we strongly recommend a referral to a weight management program. Please speak to us or your family physician about available programs. AVOID NICOTINE IN ALL FORMS This includes all tobacco products, whether chewed, smoked, vaped, or rubbed on the skin. Smoking cessation programs, which can make use of tobacco substitutes, medications to suppress cravings and behavior management, are available. Please contact your family physician about programs in your area. Referring Provider: CANDY AVALOS [[id number]] Allergies As of Date: 03/01/2018 Noted Allergy Reaction PENICILLINS 09/18/2005 4 - Hives SULFA (SULFONAMIDE ANTIBIOTICS) 09/18/2005 5 - Intolerance Comments: can not remember the side effect CRESTOR (ROSUVASTATIN CALCIUM) 01/21/2011 14 - Other: See Comments Comments: Myalgias LIPITOR (ATORVASTATIN CALCIUM) 04/29/2011 14 - Other: See Comments Comments: heavy legs NORVASC (AMLODIPINE BESYLATE) 11/18/2011 5 - Intolerance Comments: stasis edema Date Reviewed: 03/01/2018 Reviewed by: Hugo (Rn) Rachel - Fully Assessed Reason for Visit: Established Patient [175] Cmt: 6 month follow-up KAITLYNN/Afib - former [facility] patient Reason For Visit History Recorded Primary Visit Diagnosis:Atrial fibrillation, chronic (HCC) [I48.2] Other Visit Diagnoses:Chronic diastolic CHF (congestive heart failure) (HCC) [I50.32] ASHD (arteriosclerotic heart disease) [I25.10] Order(s):labetalol (TRANDATE) 200 mg tabletTake 1 tablet by mouth once daily.Disp: Rfl: lisinopril (PRINIVIL) 10 mg tabletTake 1 tablet by mouth once daily.Disp: Rfl: BASIC METABOLIC PNL [SQBMP] Order #: [id number] FUTURE Prescriptions as of 03/01/2018 Sig: LABETALOL 200 MG TABLET Take 1 tablet by mouth once d* AZATHIOPRINE 50 MG TABLET Take 3 tablets by mouth once * COMPOUNDED PRESCRIPTION Standing order: PATIENT/INR:* ROSUVASTATIN 5 MG TABLET Take 1 tablet every M, W and * COMPOUNDED PRESCRIPTION Protime Dx:I48.91 Standing o* CPAP 1 Device. and supplies use as* ASPIRIN 81 MG TABLET,DELAYED * Take 1 tablet by mouth once d* LISINOPRIL 10 MG TABLET Take 1 tablet by mouth once d* OMEGA-3 FATTY ACIDS 500 MG CA* Take 2 capsules by mouth once* WARFARIN 4 MG TABLET Take 4 mg MWFS and 2 mg all o* WARFARIN 2 MG TABLET 4mg Thursday and Thursday an* POTASSIUM ACETATE as directed. takes 1 tablet 3* GARLIC 1,000 MG CAPSULE Take by mouth once daily. CYANOCOBALAMIN (VIT B-12) 1,0* Take 1 tablet 4 days per week FOLIC ACID 1 MG TABLET Take 1 tablet by mouth once d* Problem List As Of Date 03/01/2018 Noted Resolved Ulcerative colitis (HCC) [K51.90] INVALID FOR* More... Coronary atherosclerosis [I25.10] PURE HYPERCHOLESTEROLEM [E78.00] Essential hypertension [I10] More... Pain in joint, lower leg [M25.569] INVALID FOR*12/07/2016 ATRIAL FIBRILLATION [I48.91] INVALID FOR* Nonspecific elevation of levels of transaminase*INVALID FOR*12/07/2016 Myalgia [M79.1] INVALID FOR*12/07/2016 Hyperglycemia [R73.9] INVALID FOR* ASHD (arteriosclerotic heart disease) [I25.10] INVALID FOR* GAURI (obstructive sleep apnea) [G47.33] INVALID FOR* Anticoagulation goal of INR 2 to 3 [Z51.81, Z79*INVALID FOR* Anemia due to vitamin B12 deficiency [D51.9] INVALID FOR* Ulcerative chronic pancolitis without complicat*INVALID FOR* More... Obesity (BMI 30.0-34.9) [E66.9] INVALID FOR* Other instructions from your clinician: LIFESTYLE CHANGE A healthy lifestyle is the most important component of your overall treatment plan. Please give serious thought to the following areas and commit to making custodial changes. EAT A WHOLE FOOD, PLANT BASED DIET The nutrition your body gets is more important than the medicine you take. What matters most is the overall way you eat. We encourage you to minimize the use of animal products (which include dairy and all meats except fatty fish) and use whole, unprocessed plant foods to provide your protein, vitamins and other nutrients. We have a lot of information to share with you on this topic. We also hold Shared Medical Appointments, where you can come visit with Dr. Avalos in the company of other patients and spend over an hour talking about the challenges of changing the way you eat. This is not a diet. It is a way of life that you will keep with you. EXERCISE REGULARLY It is not important to spend hours in the gym, lifting weights and perspiring heavily. A total of 2-3 hours per week of aerobic (causing you to be moderately short of breath) exercise is sufficient to improve your health. Talk to us before you begin a new exercise program, if you have heart disease or experience shortness of breath or chest pain. REDUCE STRESS Chronic emotional and physical stress leads to disease. Ways of reducing stress include meditation, visualization, prayer, yoga and other forms of relaxation therapy. Consistency is the medina. Find a technique that works for you and do it every day. CULTIVATE RELATIONSHIPS Loneliness and isolation have a major negative impact on health. Seek out others who can love, care for and nurture you. Avoid hurtful relationships. MAINTAIN IDEAL BODY WEIGHT The best way to do this is to do all the things above. Our bodies naturally find the right weight if we keep moving and feed ourselves the right food. If your BMI is greater than 25, we strongly recommend a referral to a weight management program. Please speak to us or your family physician about available programs. AVOID NICOTINE IN ALL FORMS This includes all tobacco products, whether chewed, smoked, vaped, or rubbed on the skin. Smoking cessation programs, which can make use of tobacco substitutes, medications to suppress cravings and behavior management, are available. Please contact your family physician about programs in your area. Prescriptions ordered this encounter Disp Refills Start End LABETALOL 200 MG TABLET 03/01/2018 Class: Med Update Route: ORAL Sig: Take 1 tablet by mouth once daily. LISINOPRIL 10 MG TABLET 03/01/2018 Class: Med Update Route: ORAL Sig: Take 1 tablet by mouth once daily. Medications Discontinued During This Encounter labetalol (TRANDATE) 200 mg tablet 180 * 3 01/06/2017 03/01/2018 Class: [facility] Route: ORAL Sig: Take 1 tablet by mouth twice daily. Patient taking differently: Take 200 mg by mouth once daily. Disc: Reason for discontinue is not on file. lisinopril (PRINIVIL) 20 mg tablet 90 t* 3 12/23/2017 03/01/2018 Class: [facility] Route: ORAL Sig: Take 1 tablet by mouth once daily. Disc: Reason for discontinue is not on file. chlorthalidone (HYGROTON) 25 mg tabl* 90 t* 3 07/08/2017 03/02/2018 Route: ORAL Sig: Take 1 tablet by mouth once daily. Disc: Reason for discontinue is not on file. Follow-up and Disposition History Recorded Encounter Status:Closed by CANDY AVALOS MD on 03/02/18 PROGRESS Observed: 02/25/2018 Status: COMPLETED Source: [place] 12:54 PM [facility] HNO ID: [id number] Author: Noemi Queen RN Service: (none) Author Type: (none) Type: Progress Notes Filed: 02/25/2018 12:56 PM Note Text: Patient notified of results and provider's instructions. Patient verbalizes understanding. Noemi Queen RN PROGRESS Observed: 02/25/2018 Status: COMPLETED Source: [place] 12:20 PM [facility] HNO ID: [id number] Author: Leena Ozuna Service: (none) Author Type: Physician Type: Progress Notes Filed: 02/25/2018 12:56 PM Note Text: 4 mg a day except 2 mg on on T, Th and Sat. Recheck in one week. PROGRESS Observed: 02/25/2018 Status: COMPLETED Source: [place] 10:14 AM [facility] HNO ID: [id number] Author: Noemi Queen RN Service: (none) Author Type: (none) Type: Progress Notes Filed: 02/25/2018 12:56 PM Note Text: INR 1.2-results reviewed with patient. Current Coumadin dose is 4 mg // and 2 mg all other days with last dose change on 02/08/18 and previous dose of 4 mg Thu/Thu and 2 mg all other days Last INR on 02/06/18 was 1.22 (at [facility]). Had multiple changes in cardiac medications: reports off clorthalidone, Lisinopril decreased to 10 mg daily (was 20 mg), labetolol decreased to 200 mg once a day (from twice a day) and patient has stopped ingesting ETOH for last 2 months. Advised patient would be contacted regarding dosage and followup instructions after review by provider. Currently scheduled in one week for follow up, please advise on dose. Written instructions given and patient verbalized understanding. Noemi Queen RN PROGRESS Observed: 12/25/2017 Status: COMPLETED Source: [place] 11:28 AM [facility] HNO ID: [id number] Author: Leena Ozuna Service: (none) Author Type: Physician Type: Progress Notes Filed: 12/25/2017 12:34 PM Note Text: This note was created using Cellesriter. Subjective Aleksey Leon is a 62 year old male. Review of Systems Objective There were no vitals taken for this visit. Physical Exam Assessment and Plan Ok to do. Usually if changing that frequently suggests needs to really watch his diet. PROGRESS Observed: 12/25/2017 Status: COMPLETED Source: [place] 11:18 AM [facility] HNO ID: [id number] Author: Marci Orozco RN Service: (none) Author Type: (none) Type: Progress Notes Filed: 12/25/2017 11:21 AM Note Text: patient had inr completed at [facility] patients inr is 3.2 (patients inr range is 2.0-3.0) patient is currently taking 2mg Tues,Thurs,Thu and 4mg all other days patients last dose change was on 12/18/17 due to a low level of 1.8 (dose at that time was 4mg Mon,Wed,Fri and 2mg all other days) patient has had no changes in medications except for the coumadin and no change in diet FYI - patient is leaving for [place] tomorrow. patient will increase vitamin k foods today and recheck level in 1 week in [place]. patient is requesting to stay on the same dose at this time due to dose has been changed weekly since 11/19/17. PROGRESS Observed: 12/18/2017 Status: COMPLETED Source: [place] 3:53 PM [facility] HNO ID: [id number] Author: Sadaf Brown Ma Service: (none) Author Type: (none) Type: Progress Notes Filed: 12/18/2017 3:53 PM Note Text: Patient notified of dosage change PROGRESS Observed: 12/18/2017 Status: COMPLETED Source: [place] 10:20 AM [facility] HNO ID: [id number] Author: Leena Ozuna Service: (none) Author Type: Physician Type: Progress Notes Filed: 12/18/2017 3:53 PM Note Text: Change to 4 m g MWF, SAT, 2 mg a day rest of the week. Recheck in one week PROGRESS Observed: 12/18/2017 Status: COMPLETED Source: [place] 9:52 AM [facility] HNO ID: [id number] Author: Marci Orozco RN Service: (none) Author Type: (none) Type: Progress Notes Filed: 12/18/2017 9:54 AM Note Text: patient had inr completed at [facility] patients inr is 1.8 (patients inr range is 2.0-3.0) patient is currently taking 4mg Mon,Wed,Fri and 2mg all other days patients last dose change was on 12/04/17 due to a low level of 1.4 (dose at that time was 4mg Tues,Thurs and 2mg all other days) patient has had no changes in medication except for the coumadin and no missed doses and no change in diet Advised patient that they would be contacted regarding medication dose and when to follow up after information is reviewed by provider. After provider review please contact the patient with information and schedule follow up appointment with coumadin clinic. FYI- patient has been scheduled for a 1 week follow up inr on 12/25/17 PROGRESS Observed: 12/05/2017 Status: COMPLETED Source: [place] 9:07 AM [facility] HNO ID: [id number] Author: Merary Bunch LPN Service: (none) Author Type: (none) Type: Progress Notes Filed: 12/05/2017 9:08 AM Note Text: Patient returned call and gave coumadin instructions as below from Dr Ozuna with understanding. PROGRESS Observed: 12/04/2017 Status: COMPLETED Source: [place] 3:33 PM [facility] HNO ID: [id number] Author: Sadaf Brown Ma Service: (none) Author Type: (none) Type: Progress Notes Filed: 12/04/2017 3:36 PM Note Text: Detailed message left for patient on an identifiable voicemail. PROGRESS Observed: 12/04/2017 Status: COMPLETED Source: [place] 2:56 PM [facility] HNO ID: [id number] Author: Leena Ozuna Service: (none) Author Type: Physician Type: Progress Notes Filed: 12/04/2017 3:36 PM Note Text: Limit any vitamin k in the diet. 4 mg MWF, 2 mg a day rest of the week. Recheck in one week PROGRESS Observed: 12/04/2017 Status: COMPLETED Source: [place] 11:18 AM [facility] HNO ID: [id number] Author: Marci Orozco RN Service: (none) Author Type: (none) Type: Progress Notes Filed: 12/04/2017 11:19 AM Note Text: patient had inr completed at [facility] patients inr is 1.4 (patients inr range is 2.0-3.0) patient is currently taking 4mg Tues,Thurs and 2mg all other days patients last dose change was on 11/26/17 due to a low level of 1.3 (dose at that time was 3mg Thurs and 2mg all other days) patient has had no changes in medication except for the coumadin and no change in diet Advised patient that they would be contacted regarding medication dose and when to follow up after information is reviewed by provider. After provider review please contact the patient with information and schedule follow up appointment with coumadin clinic. FYI - patient has been scheduled for a 1 week inr follow up on 12/11/17 PROGRESS Observed: 11/26/2017 Status: COMPLETED Source: [place] 3:46 PM [facility] HNO ID: [id number] Author: Isabell Das RN Service: (none) Author Type: (none) Type: Progress Notes Filed: 11/26/2017 3:47 PM Note Text: Left detailed message on patients voicemail of below. Patient scheduled 12/03/17 Isabell Das RN PROGRESS Observed: 11/26/2017 Status: COMPLETED Source: [place] 3:30 PM [facility] HNO ID: [id number] Author: Leena Ozuna Service: (none) Author Type: Physician Type: Progress Notes Filed: 11/26/2017 3:47 PM Note Text: 4 mg on T and TH, 2 mg rest of the week. Recheck in one week. PROGRESS Observed: 11/26/2017 Status: COMPLETED Source: [place] 2:42 PM [facility] HNO ID: [id number] Author: Isabell Das RN Service: (none) Author Type: (none) Type: Progress Notes Filed: 11/26/2017 2:42 PM Note Text: Patient had INR completed at [facility] Patient's INR is 1.3 Patient is currently taking 3mg Thurs, 2mg the rest of the week Patient's last dose change was 11/19/17 due to low INR at 1.5 Patient has had no medication and no change in diet. Advised patient that they would be contacted regarding medication dose and follow-up once reviewed by provider. After provider review, please contact patient with information and schedule follow-up appointment with coumadin clinic. HOSP Observed: 11/26/2017 Status: COMPLETED Source: [place] 1:45 PM [facility] Anticoagulation Visit (COUMWS) ALEKSEY LEON ([id number]) 1955 M Date Time Provider Department 11/26/17 1:45 PM [facility] COUMWS During your visit today, we recorded the following information about you: Isabell Das RN 11/26/2017 2:42 PM Signed Patient had INR completed at [facility] Patient's INR is 1.3 Patient is currently taking 3mg Thurs, 2mg the rest of the week Patient's last dose change was 11/19/17 due to low INR at 1.5 Patient has had no medication and no change in diet. Advised patient that they would be contacted regarding medication dose and follow-up once reviewed by provider. After provider review, please contact patient with information and schedule follow-up appointment with coumadin clinic. Leena Ozuna MD 11/26/2017 3:47 PM Signed 4 mg on T and TH, 2 mg rest of the week. Recheck in one week. Isabell Das RN 11/26/2017 3:47 PM Signed Left detailed message on patients voicemail of below. Patient scheduled 12/03/17 Isabell Das RN Referring Provider: LEENA OZUNA [[id number]] Allergies As of Date: 11/26/2017 Noted Allergy Reaction PENICILLINS 09/18/2005 4 - Hives SULFA (SULFONAMIDE ANTIBIOTICS) 09/18/2005 5 - Intolerance Comments: can not remember the side effect CRESTOR (ROSUVASTATIN CALCIUM) 01/21/2011 14 - Other: See Comments Comments: Myalgias LIPITOR (ATORVASTATIN CALCIUM) 04/29/2011 14 - Other: See Comments Comments: heavy legs NORVASC (AMLODIPINE BESYLATE) 11/18/2011 5 - Intolerance Comments: stasis edema Date Reviewed: 10/27/2017 Reviewed by: Marci Orozco RN - Fully Assessed Reason for Visit: Coumadin/INR [1207] Visit Diagnosis:Atrial fibrillation, unspecified type (HCC) [I48.91] Prescriptions as of 11/26/2017 Sig: WARFARIN 2 MG TABLET 4mg Thursday and and 2* ROSUVASTATIN 5 MG TABLET Take 1 tablet every M, W and * CHLORTHALIDONE 25 MG TABLET Take 1 tablet by mouth once d* POTASSIUM ACETATE as directed. takes 1 tablet 3* AZATHIOPRINE 50 MG TABLET Take 3 tablets by mouth once * LABETALOL 200 MG TABLET Take 1 tablet by mouth twice * GARLIC 1,000 MG CAPSULE Take by mouth once daily. CYANOCOBALAMIN (VIT B-12) 1,0* Take 1 tablet 4 days per week LISINOPRIL 20 MG TABLET Take 1 tablet by mouth once d* OMEGA-3 FATTY ACIDS 500 MG CA* Take 2 capsules by mouth once* COMPOUNDED PRESCRIPTION Protime Dx:I48.91 Standing o* FOLIC ACID 1 MG TABLET Take 1 tablet by mouth once d* CPAP 1 Device. and supplies use as* ASPIRIN 81 MG TABLET,DELAYED * Take 1 tablet by mouth once d* Problem List As Of Date 11/26/2017 Noted Resolved Ulcerative colitis (HCC) [K51.90] INVALID FOR* More... Coronary atherosclerosis [I25.10] PURE HYPERCHOLESTEROLEM [E78.00] Essential hypertension [I10] More... Pain in joint, lower leg [M25.569] INVALID FOR*12/07/2016 ATRIAL FIBRILLATION [I48.91] INVALID FOR* Nonspecific elevation of levels of transaminase*INVALID FOR*12/07/2016 Myalgia [M79.1] INVALID FOR*12/07/2016 Hyperglycemia [R73.9] INVALID FOR* ASHD (arteriosclerotic heart disease) [I25.10] INVALID FOR* GAURI (obstructive sleep apnea) [G47.33] INVALID FOR* Anticoagulation goal of INR 2 to 3 [Z51.81, Z79*INVALID FOR* Anemia due to vitamin B12 deficiency [D51.9] INVALID FOR* Ulcerative chronic pancolitis without complicat*INVALID FOR* More... Obesity (BMI 30.0-34.9) [E66.9] INVALID FOR* Follow-up and Disposition History Recorded Encounter Status:Closed by ISABELL DAS RN on 11/26/17 ALLERGIES ALLERGIES DATE TYPE / NAME / CODE REACTION SEVERITY SOURCE CODE 09/13/2018 Drug amlodipine Unknown Unknown [place] Allergy/41 besylate/[id number] [facility] [id number]( 3(RXNORM) [facility]) Repository 09/13/2018 Drug atorvastatin Unknown Unknown [place] Allergy/41 calcium/[id number] [facility] [id number]( (RXNO) [facility]) Repository 09/13/2018 Drug rosuvastatin Unknown Unknown [place] Allergy/41 calcium/[id number] [facility] [id number]( (RXNO) [facility]) Repository 09/13/2018 Drug Sulfa (Sulfonamide Unknown Unknown [place] Allergy/41 Antibiotics)/F0010 [facility] [id number]( 80768(RXNO) [facility]) Repository 11/18/2011 DRUG AMLODIPINE INTOLERANCE [facility] INGREDI/41 BESYLATE [facility] [id number]([facility]) 04/29/2011 DRUG ATORVASTATIN OTHER: SEE C [facility] INGREDI/41 CALCIUM Other [place] [id number](SN Repository OMED CT) 01/21/2011 DRUG [facility]STATIN OTHER: [facility] [place] [id number](SN Repository OMED CT) 09/18/2005 Drug PENICILLINS HIVES [facility] Class/4195 Other [place] [address](SNOM Repository ED CT) 09/18/2005 Drug SULFA (SULFONAMIDE INTOLERANCE [facility] Class/4195 ANTIBIOTICS) Other [place] [address](SNOM Repository ED CT) NG/[id number] PENICILLINS [facility] 06(SNOMED [facility]) Repository NG/4738158 SULFA (SULFONAMIDE [facility] 06(SNOMED ANTIBIOTICS) [facility]) Repository NG/5423468 ROSUVASTATIN [facility] 06(SNOMED CALCIUM [facility]) Repository NG/4114186 ATORVASTATIN [facility] 06(SNOMED CALCIUM [facility]) Repository NG/3185061 AMLODIPINE [facility] 06(SNOMED BESYLATE [facility]) Repository ENCOUNTERS ENCOUNTERS ADMIT/DISCHARGE ACCOUNT NUMBER ADMITTING ENCOUNTER LOCATION SOURCE CLASS 11/18/2018/11/19/19 [id number] Ambulatory [address] [place] Repository 10/19/2018 [id number] Ambulatory [facility] ding:LABSPEC Repository 10/19/2018/10/19/20 [id number] Ambulatory [address] [place] Repository 10/19/2018/10/19/20 [id number] Ambulatory [address] [place] Repository 10/19/2018/10/20/20 [id number] Ambulatory [address] [place] Repository 10/19/2018/10/20/20 [id number] Ambulatory [address] [place] Repository 09/17/2018/09/20/20 [id number] Ambulatory [address] [place] Repository 09/13/2018/09/13/20 [id number] Emergency [address] ding:ED Repository 08/31/2018 [id number] Ambulatory [facility] MEDICAL Repository CENTERBuildi ng:CAGWS 08/26/2018/08/27/20 [id number] Ambulatory [address] [place] Repository 08/05/2018/08/06/20 [id number] Ambulatory [address] [place] Repository 07/07/2018/07/08/20 [id number] Ambulatory [address] [place] Repository 06/04/2018/06/04/20 [id number] Ambulatory [address] [place] Repository 05/11/2018/05/11/20 [id number] Ambulatory [address] [place] Repository 04/29/2018/04/30/20 [id number] Ambulatory [address] [place] Repository 04/14/2018 [id number] Ambulatory [facility] ding:[facility] Repository 04/14/2018 [id number] Ambulatory [facility] ding:LABSPEC Repository 04/14/2018 [id number] Ambulatory [facility] [place] Repository 04/14/2018/04/16/20 [id number] Ambulatory [address] [place] Repository 04/08/2018/04/09/20 [id number] Ambulatory [address] [place] Repository 04/07/2018/04/07/20 [id number] Ambulatory [address] [place] Repository 03/24/2018 [id number] Ambulatory [facility] [place] Repository 03/24/2018/03/25/20 [id number] Ambulatory [address] [place] Repository 03/24/2018/03/25/20 [id number] Ambulatory [address] [place] Repository 03/19/2018/03/19/20 [id number] Ambulatory [address] [place] Repository 03/12/2018/03/15/20 [id number] Ambulatory [address] [place] Repository 03/04/2018/03/08/20 [id number] Ambulatory [address] [place] Repository 03/01/2018/03/01/20 [id number] Ambulatory [address] Other [place] Repository 03/01/2018/03/01/20 [id number] Ambulatory [facility] [address] MEDICAL Repository CENTERBuildi ng:CAGWS 02/25/2018/02/27/20 [id number] Ambulatory [address] [place] Repository 12/25/2017/12/26/19 [id number] Ambulatory [address] [place] Repository 12/18/2017/12/21/[id number] Repository 12/04/2017/12/07/[id number] Repository 11/26/2017/11/27/[id number] Repository PAYERS PAYERS ENCOUNTER GUARANTOR PAYER SUBSCRIBER SOURCE 10/19/2018 ALEKSEY Juares Primary ALEKSEY Ortiz [id number] Insurance:MEDICAL SIMONSONDOB[facility] [id number] Number: Repository [id number]: 330 [id number] (HP) Date:5347-30-46IM [address] [address]UY: 10/19/2018 Secondary NOT GIVENUNK [place] Insurance:SELF PAY [facility] Number: Effective Repository Date:2018-10-19 09/13/2018 Aleksey Juares Primary Aleksey Ortiz [id number] Insurance:MEDICAL SimonsonDOB: [facility] [id number] Number: Repository [address]Tuy: 330 [id number] (HP) Date:2246-24-85IL [address] [address]GR: 09/13/2018 Secondary NOT GIVENUNK [place] Insurance:SELF PAY [facility] Number: Effective Repository Date:2018-09-13 08/31/2018 ALEKSEY Juares Primary Insurance:Kye Roger SIMONSONDOB: [facility]: [facility] [id number] E Number: [id number] [facility] [id number] [place], [place] Date: [id number]: (HP) 04/14/2018 Aleksey Juares Primary Aleksey Ortiz [id number] Insurance:MEDICAL SimonsonDOB: [facility] [id number] Number: Repository [address]Hsv: 330 [id number] (HP) Date:4992-02-20RZ [address] [place] [id number]: 04/14/2018 Secondary NOT GIVENUNK [place] Insurance:SELF PAY [facility] Number: Effective Repository Date:2018-04-14 04/14/2018 Aleksey Juares Primary Aleksey Ortiz [id number] Insurance:MEDICAL SimonsonB: [facility] [id number] [place] Number: Repository [address]Qah: [phone]) [id number] (HP) Date:2690-44-86SS [facility] [address] [place] [id number]: 04/14/2018 Secondary NOT GIVENUNK [place] Insurance:SELF PAY [facility] Number: Effective Repository Date:2018-04-14 03/01/2018 ALEKSEY Juares Primary Insurance:O ALEKSEY Roger SIM[facility]SONDOB[facility] [id number] E Number: [id number] Repository [facility] [id number] [place], [place] Date: [address]Utx: ()
== END ==
PROVIDERS: Family Provider Family Medicine; Referring Provider Family Medicine; Visit Provider Family Medicine
DX: I48.91 Unspecified atrial fibrillation (principal)
CPT/HCPCS: 85610

== ENCOUNTER → 2018-12-17 09:51 | Outpatient (CLI) | payer MEDICARE, OTHER, SELFPAY ==
[2018-12-17 10:07] LABS: International Normalized Ratio 2.9; Prothrombin Time (Protime)PT. 30.8 SECONDS (11.7-14.9)
== END ==
PROVIDERS: Family Provider Family Medicine; Visit Provider Family Medicine
DX: I48.91 Unspecified atrial fibrillation (principal)
CPT/HCPCS: 85610

== ENCOUNTER 2019-09-30 13:40 | Inpatient (IN) | payer MEDICARE, OTHER, SELFPAY ==
[2019-09-30] VITALS (9 sets, daily range): BP systolic 124–154; BP diastolic 68–84; PULSE 59–81; RESP 16–20; TEMP 36.6–36.7; O2SAT 95–99; BMI 34.0; BMI 34.6
--- NOTE | 2019-09-30 14:04 | EKG12_ITS ---
Test Reason : DYSRHYTHMIA Blood Pressure : / mmHG Vent. Rate : 077 BPM Atrial Rate : 080 BPM P-R Int : 000 ms QRS Dur : 174 ms QT Int : 424 ms P-R-T Axes : 000 -85 022 degrees QTc Int : 479 ms Atrial fibrillation Left axis deviation Right bundle branch block Inferior infarct , age undetermined Abnormal ECG Confirmed by ELINA VIERA, KAREEN ([id number]), acquisition editor WILBERT ERAZO ([id number] on 10/03/2019 11:33:44 AM Referred By: Prashant Morrissey Confirmed By:KAREEN ANTOINE MD
[2019-09-30 14:24] LABS: Hematocrit 40.4 % (40-54); Hemoglobin 13.3 g/dL (13.0-16.5); Mean Corp Hgb Conc 32.9 g/dL (32-36); Mean Corpuscular Hgb 36.3 pg (27.0-32.0); Mean Corpuscular Volume 110.4 fL (80-94); Mean Platelet Vol. 9.4 fl (6.2-12.0); Platelet Count 277 K/mm3 (150-450); RBC Distribution Width CV 14.5 % (11.6-14.6); Red Blood Count 3.66 M/mm3 (4.6-6.2)
--- NOTE | 2019-09-30 14:32 | ED.DCSUM_ITS ---
History of Present Illness Chief Complaint: Abn Labs Detail of Chief Complaint: Elevated potassium and subtherapeutic INR Informant: Patient, Significant Other Onset: Days Context: - - Unknown Timing: Continuous Quality: Elevated potassium, 6.8 Location: Not applicable Current Severity: Moderate Maximum Severity: Moderate Worsened by: Unknown Relieved by: Unknown Associated Symptoms: No symptoms Narrative: Patient is an elderly male who followed up with his primary care physician and had blood work obtained that indicated an elevated potassium. Blood work was obtained from yesterday. He had repeat blood work today that verified the potassium is elevated. He does not know what his BUN to creatinine is. He denies history of renal disease. He has not been using salt substitute. There is been no change in medication or diet. Prior similar symptoms: No Recent Illness/Hospitalization: No - Past Medical History (1) Coronary artery disease Status: Chronic (2) Hyperlipidemia Status: Chronic (3) Hypertension Status: Chronic (4) Obstructive sleep apnea Status: Chronic (5) Permanent atrial fibrillation Status: Chronic Past Medical History - Allergies and Home Meds Allergies/Adverse Reactions: Allergies amlodipine besylate [From Norvasc] Allergy (Verified 09/30/19 13:41) Unknown atorvastatin calcium [From Lipitor] Allergy (Verified 09/30/19 13:41) Unknown rosuvastatin calcium [From Crestor] Allergy (Verified 09/30/19 13:41) Unknown Sulfa (Sulfonamide Antibiotics) Allergy (Verified 09/30/19 13:41) Unknown Primary Care Physician: Jah Ozuna [Primary Care Provider] - Prior records reviewed: Yes Surgical History: coronary bypass surgery, herniorrhaphy, tonsillectomy Lives: Spouse/ Significant Other Smoking Status: Former smoker Alcohol: None Drugs: None - Family History Maternal Family History: Reports: No pertinent history Paternal Family History: Reports: No pertinent history Review of Systems General: Denies: Chills, Fever, Sweats Eyes: Denies: Visual changes - bilaterally, Blurred Vision - bilaterally, Diplopia ENT: Denies: Rhinorrhea, Sore throat Cardiovascular: Denies: Chest pain, Palpitations Respiratory: Denies: Dyspnea, Cough, Dyspnea on exertion Gastrointestinal: Denies: Abdominal pain, Nausea, Vomiting, Diarrhea, Melena, Hematochezia Genitourinary: Denies: Dysuria, Hematuria, Frequency Musculoskeletal: Reports: Swelling. Denies: Myalgias, Arthralgias, Neck pain, Back pain, Extremity Pain Skin: Denies: Rash, Abscess, Wounds Neurological: Denies: Headache, Weakness, Numbness Hematologic: Denies: Easy bruising, Easy bleeding Allergy: Denies: Uticaria, Swelling of the mouth Physical Exam Vital Signs/Narrative: Vital Signs Temp Pulse Resp BP Pulse Ox 09/30/19 13:55 64 18 154/76 H 99 09/30/19 13:41 98.0 F 72 16 144/84 H 97 Inital Vital Signs reviewed: Yes General: Well nourished, Well developed, No Acute Distress Head: Normocephalic, Atraumatic Eyes: Perrl, EOMI ENT: Moist mucous membranes, No rhinorrhea Neck: Supple, Nontender Cardiovascular: Regular rhythm, No murmurs, Irregular Respiratory: No distress, CTA bilaterally, Chest nontender Abdomen: Soft, Nontender, Nondistended, Normal bowel sounds Back: Nontender, Normal Inspection Extremities: Nontender, No edema - Mild edema, which is not pitting Skin: Normal color, No rash Neurological: Alert, Oriented x3, Cranial nerves II-XII grossly intact, Normal Strength, Normal Sensation Psychological: Normal affect, Normal Mood Diagnostic/Tx/Re-eval Laboratory Results 09/30/19 09/30/19 14:15 14:15 WBC 6.0 RBC 3.66 L Hgb 13.3 Hct 40.4 MCV 110.4 H MCH 36.3 H MCHC 32.9 RDW Std Deviation 60.0 H RDW Coeff of [place] 14.5 Plt Count 277 MPV 9.4 Sodium 142 Potassium 6.0 H* Chloride 115 H Carbon Dioxide 18.0 L Anion Gap 9 BUN 63 H Creatinine 2.14 H Estim Creat Clear Calc 34.41 Est GFR (MDRD) Af Amer 40 L Est GFR (MDRD) Non-Af 33 L BUN/Creatinine Ratio 29.4 H Glucose 102 Calcium 9.4 Work was faxed from his physician's office. December 17, 2018 creatinine was normal at 1.0. Patient has acute kidney injury with hyperkalemia. Patient was informed he will require admission to the hospital with further testing. Hospitalist has been paged for admission. His hyperkalemia was treated with albuterol and D 50 with 5 units of insulin IV push. - EKG Initial EKG Interpretation: Atrial Fibrillation - Circular rate is 77. QRS duration 174 ms. [place] is to the left. QRS morphology consistent with right bundle branch block. EKG is unchanged from September 13, 2018. - Medical Decision Making Patient was placed on a monitor and IV was established. EKG was obtained to evaluate for acute changes secondary to hyperkalemia. Since patient had an INR which was subtherapeutic and his dose was increased this was not repeated. Since I do not have access to his most recent blood work will obtain basic metabolic panel. ED Disposition - Plan for ED Patient: Disposition: Acute Care Hospital [facility] Diagnosis: Acute kidney injury (nontraumatic), Hyperkalemia Referrals: Jah Ozuna [Primary Care Provider] -
[2019-09-30 14:41] LABS: Anion Gap 9 (5-15); BUN 63 mg/dL (7-18); BUN/Creat Ratio 29.4 RATIO (10-20); Calcium,Total 9.4 mg/dL (8.5-10.1); Chloride 115 mmol/L (98-107); Creatinine, Serum 2.14 mg/dL (0.70-1.30); EST Glomerular Filtration Rate 33 mL/min (>60); Est Glom Filt Rate - Afr Amer 40 mL/min (>60); Estimated Creatinine Clearance 34.41 ml/min; Glucose 102 mg/dL (74-106); Sodium Level 142 mmol/L (136-145)
[2019-09-30] MEDS: Albuterol 2.5 MG/3 ML VIAL.NEB. INHALATION (15:00)
[2019-09-30] MEDS: Insulin Lispro 5 UNIT in Syringe 0 ML 3 UNIT IV (15:18)
--- NOTE | 2019-09-30 15:18 | CPS ---
Albuterol given for Hyperkalemia
[2019-09-30] MEDS: Dextrose 50%-Water 25 GM/50 ML DISP.SYRIN IV (15:19)
--- NOTE | 2019-09-30 15:22 | NURSING ---
PCU SWETHA, HYPERKALEMIA JERSEY
[2019-09-30 15:31] LABS: Bacteria 0 SEEN /hpf (None Seen); Mucous, Urine 0 SEEN /hpf (<or=2+); Red Blood Cells-Urine 0 SEEN /hpf (0-5); White Blood Cells 0 SEEN /hpf (0-5)
[2019-09-30 15:34] LABS: Color, Urine Yellow (Yellow); Glucose, Dipstick Normal (Normal); Ketone-Dipstick 5 mg/dl (Negative); Leukocyte Esterase-Dipstick Negative /ul (Negative); Nitrite-Dipstick Negative (Negative); Occult Blood-Urine Negative /ul (Negative); Protein-Dipstick Negative (Negative); Specific Gravity, Urine 1.015 (1.002-1.030); Urine Bilirubin Dipstick Negative (Negative); Urine Clarity Clear (Clear); Urine Urobilinogen Normal (Normal)
--- NOTE | 2019-09-30 15:36 | HP.PCM_ITS ---
Problem List (1) Ulcerative colitis Status: Chronic (2) Status post coronary artery bypass graft Status: Chronic (3) Acute kidney injury (nontraumatic) Status: Acute (4) Hyperkalemia Status: Acute (5) Hyperlipidemia Status: Chronic (6) Hypertension Status: Chronic Qualifiers: Hypertension type: essential hypertension Qualified Code(s): I10 - Essential (primary) hypertension (7) Permanent atrial fibrillation Status: Chronic (8) Obstructive sleep apnea Status: Chronic (9) Coronary artery disease Status: Chronic Qualifiers: Coronary Disease-Associated Artery/Lesion type: [place] artery [place] vs. transplanted heart: [place] heart Associated angina: without angina Qualified Code(s): I25.10 - Atherosclerotic heart disease of [place] coronary artery without angina pectoris History of Present Illness Date of Admission: 09/30/19 Chief Complaint: Patient was instructed to come to ED by PCP for abnormal labs. The patient is a 63 year old M patient with past medical history as mentioned above was instructed to come to the emergency department by his PCP for abnormal labs. Patient had blood work done yesterday and he was found to have elevated potassium and his potassium was 5.8. Today, he had repeat blood work that showed potassium 6.8, creatinine of above 2 and he was called from his PCPs office and asked her to come to the emergency department. The patient denied any specific symptoms. He denied abdominal pain, nausea, vomiting, constipation or diarrhea. He denies urinary symptoms. He denies chest pain or shortness of breath. He denies dizziness or lightheadedness. History of CAD status post CABG and he has been on aspirin, beta-blockers, statins and PORSCHE inhibitors. Patient mentioned that he has been taking Lasix intermittently as needed and he took last dose around 1 week ago. He had a history of ulcerative colitis which has been under control for years on Imuran. He had a history of chronic atrial fibrillation for which she has been on labetalol for rate control and Coumadin for anticoagulation and his INR was subtherapeutic yesterday. In the emergency department, his vital signs were stable. His routine blood work was remarkable for potassium of 6, BUN of 63, creatinine of 2.14, carbon dioxide of 18. Blood glucose and serum calcium were normal. His EKG revealed A. fib, rate is controlled, RBBB which is chronic, no acute findings. He is being admitted for acute kidney injury and hyperkalemia for treatment and evaluation. Past Medical History Past Medical History (Chronic Problems): Chronic Problems Ulcerative colitis (Chronic) Status post coronary artery bypass graft (Chronic) Hyperlipidemia (Chronic) Hypertension (Chronic) Permanent atrial fibrillation (Chronic) Obstructive sleep apnea (Chronic) Coronary artery disease (Chronic) Allergies amlodipine besylate [From Norvasc] Allergy (Verified 09/30/19 13:41) Unknown atorvastatin calcium [From Lipitor] Allergy (Verified 09/30/19 13:41) Unknown rosuvastatin calcium [From Crestor] Allergy (Verified 09/30/19 13:41) Unknown Sulfa (Sulfonamide Antibiotics) Allergy (Verified 09/30/19 13:41) Unknown Home Medications: Ambulatory Orders Medication Instructions Recorded Aspirin [Aspirin, Baby] 81 mg PO DAILY@0800 09/13/18 Furosemide [Lasix] 40 mg PO PRN PRN 09/13/18 Warfarin Sodium [Coumadin] 4 mg PO MOWEFR 09/13/18 Warfarin [Coumadin ([facility])] 2 mg PO SUTUTHSA 09/13/18 Azathioprine [Imuran] 100 mg PO QHS 09/30/19 Labetalol [Trandate] 200 mg PO BID 09/30/19 Lisinopril 20 mg PO BID 09/30/19 [place]-3/Dha/Epa/Fish Oil [Fish Oil 1,000 mg PO DAILY 09/30/19 1,000 mg Softgel] Rosuvastatin Calcium 5 mg PO MOWEFR 09/30/19 Surgical History: coronary bypass surgery, herniorrhaphy, tonsillectomy Psychiatric History: No pertinent psych hx Lives: Spouse/ Significant Other Smoking Status: Former smoker Alcohol: None Drugs: None - *Family History Maternal History Items: No pertinent history Paternal History Items: No pertinent history Review of Systems Constitutional: Denies: Anorexia, Chills, Fever, Weakness Eyes: Denies: Blurred vision, Double vision, Drainage, Redness HEENT: Denies: Difficulty Hearing, Dysphasia, Ear Pain, Eye Pain, Nasal Congestion, Sore Throat Cardiovascular: Denies: Chest Pain, Chest Pressure, Chest Tightness, Edema, Heaviness, Light Headedness, Palpitations, Syncope Respiratory: Denies: Cough, Hemoptysis, Pleuritic Pain, Shortness of Breath, Sputum production, Wheezing Gastrointestinal: Denies: Abdominal Pain, Constipation, Diarrhea, Hematochezia, Nausea, Melena, Vomiting Genitourinary: Denies: Dysuria, Frequency, Hematuria, Incontinence, Retention Musculoskeletal: Denies: Arm Pain, Back Pain, Foot Pain Skin: Denies: Dryness, Rash Neurological: Denies: Balance problems, Double vision, Change in Speech, Slurred speech, Confusion, Headaches, Incoordination, Numbness Psychiatric: Denies: Anxiety, Depression Endocrine: Denies: Change in Body Habitus, Polydipsia, Polyuria VTE Information - Inpt Only VTE Present on Admission: No VTE Mechan Device Prophylaxis: None VTE Pharm Prophylaxis ordered?: No Patient Problems: Active and Suspected Problems Acute kidney injury (nontraumatic) (Acute) Hyperkalemia (Acute) - Physical Exam Vitals/I&O's: Vital Signs Temp Pulse Resp BP Pulse Ox 98.0 F 81 20 H 124/69 H 95 09/30/19 13:41 09/30/19 15:25 09/30/19 15:25 09/30/19 15:25 09/30/19 15:25 Oxygen Delivery Method Room Air Weight: 230 lb Body Mass Index (BMI) 34.0 General: Alert, Oriented x3, Cooperative, No apparent distress HEENT: Atraumatic, PERRLA, EOMI, Normocephalic Oral: Moist Mucosa, No Gingival or Mucosal Lesions/ Ulcerations Neck: Supple, No JVD, Negative Carotid Bruits, Trachea Midline, Thyroid Normal Size and Texture Lungs: Clear to auscultation, Normal air movement, No rhonchi, No wheeze, No rales Cardiovascular: Normal S1, Normal S2, No murmurs, PMI Normal, Irregular Rate Abdomen: Bowel Sounds Present, Soft, Non Tender, Non-Distended, No Hepato- splenomegaly Extremities: No clubbing, No cyanosis, Edema - Trace edema. Skin: No rashes, No breakdown Lymphatic: No Cervical, Supraclavicular, or Inguinal Adenopathy Neurological: Cranial nerves II-XII grossly intact, Motor Exam 5/5 strength throughout Psych/Mental Status: Normal Affect, Appropriate, Alert and oriented to time, place, person, mood and affect Laboratory Results 09/30/19 14:15: WBC 6.0, RBC 3.66 L, Hgb 13.3, Hct 40.4, MCV 110.4 H, MCH 36.3 H , MCHC 32.9, RDW Std Deviation 60.0 H, RDW Coeff of [place] 14.5, Plt Count 277, MPV 9.4 09/30/19 14:15: Sodium 142, Potassium 6.0 H*, Chloride 115 H, Carbon Dioxide 18.0 L, Anion Gap 9, BUN 63 H, Creatinine 2.14 H, Estim Creat Clear Calc 34.41, Est GFR (MDRD) Af Amer 40 L, Est GFR (MDRD) Non-Af 33 L, BUN/Creatinine Ratio 29.4 H, Glucose 102, Calcium 9.4 09/30/19 15:18: Urine Color Pending, Urine Clarity Pending, Urine pH Pending, Ur Specific [place] Pending, Urine Protein Pending, Urine Glucose (UA) Pending, Urine Ketones Pending, Urine Occult Blood Pending, Urine Nitrite Pending, Urine Bilirubin Pending, Urine Urobilinogen Pending, Ur Leukocyte Esterase Pending, Urine RBC Pending, Urine WBC Pending, Ur Squamous Epith Cells Pending, Urine Bacteria Pending, Urine Mucus Pending Assessment/Plan All Active Problems Acute kidney injury (nontraumatic) (Acute) Hyperkalemia (Acute) This is a 63 years old male patient was sent to the emergency department by his PCP for abnormal labs namely high potassium and elevated BUN/creatinine, found to have acute kidney injury and hyperkalemia and he is being admitted for treatment and evaluation. #1 acute kidney injury/hyperkalemia: Without prior history of kidney disease. His kidney function and potassium was normal on December,. Patient denies any past history of kidney disease. He has been on lisinopril and intermittent Lasix. He denied any changes to his medications dosage recently. Patient received 5 units of insulin lispro IV x1 with 1 ampoule of D50 as well as albuterol nebulizer at the emergency department. Plan: Admit to PCU, cardiac monitoring, IV fluids for hydration, repeat potassium at 9 PM tonight, ultrasound kidneys and urinary bladder, hold lisinopril and Lasix, input output chart, repeat CBC and BMP tomorrow morning. #2 mild metabolic acidosis: Serum bicarb is 18, anion gap is normal. This is probably due to acute kidney injury. Plan as above. #3 CAD status post CABG: Stable, no acute issues. EKG reviewed, no acute ischemic changes. Continue aspirin, rosuvastatin and labetalol, hold lisinopril as above. #4 hypertension: Blood pressure stable, continue labetalol, hold lisinopril, start IV hydralazine PRN. #5 hyperlipidemia: Stable, continue statins. #6 chronic atrial fibrillation: Rate is controlled, continue labetalol for rate control and Coumadin for anticoagulation. Reportedly, INR was subtherapeutic at the PCPs office today. Will recheck INR. #7 ulcerative colitis: Stable, no symptoms. Continue Imuran. #8 DVT prophylaxis: Patient has been on Coumadin, will check INR. This note was generated with Stripe dictation software. It may contain incorrect words, spelling, and punctuation that were not noted in checking the note before signing. Code Visit Inpatient E&M: 49256 Init Hosp L3
[2019-09-30 15:59] LABS: Squamous Epithelial Cells - UA 0-5 SEEN /hpf (0-5)
--- NOTE | 2019-09-30 16:23 | US_ITS ---
STUDY: RENAL ULTRASOUND - COMPLETE REASON FOR EXAM: Male, 63 years old. Acute renal failure. TECHNIQUE: Ultrasound evaluation of the kidneys was performed with real-time and static sahni-scale imaging. COMPARISON: None. FINDINGS: RIGHT KIDNEY: Normal location of the right kidney, which is normal in size. The right kidney measures 11.7 x 5.2 x 4.7 cm. There is a normal cortex of the right kidney. The renal cortex measures 1.6 cm. A round anechoic structure is identified at the level of the lower pole of the right kidney measuring 3.1 x 2.6 x 3.1 cm consistent with a simple cyst. There are no right renal calculi. There is no right hydronephrosis. DISTAL RIGHT URETER: There is non-visualization of the distal right ureter. There is no demonstrated right ureterovesical junction calculus. There is a visualized right ureteral jet. LEFT KIDNEY: Normal location of the left kidney, which is normal in size. The left kidney measures 10.2 x 2.8 x 4.4 cm. There is a normal cortex of the left kidney. The renal cortex measures 1.7 cm. Is within the left kidney at the level of the mid lower pole there is a round anechoic structure measuring 0.8 x 0.6 x 0.5 cm compatible with a small cyst. There are no left renal calculi. There is no left hydronephrosis. DISTAL LEFT URETER: There is non-visualization of the distal left ureter. There is no demonstrated left ureterovesical junction calculus. There is a visualized left ureteral jet. BLADDER: The urinary bladder has a volume of 99.37 ml. There is a normal wall thickness of the distended urinary bladder. There is no demonstrated mass within the urinary bladder. There are no demonstrated bladder calculi. US/Kidney and Bladder IMPRESSION: Bilateral renal cysts as described above, otherwise normal ultrasound of the kidneys and visualized urinary bladder. Electronically Signed: Cynthia Michael MD at 4:06 EST , Service support ,
[2019-09-30 16:39] LABS: International Normalized Ratio 1.9; Prothrombin Time (Protime)PT. 21.3 SECONDS (11.7-14.9)
[2019-09-30 17:15] LABS: Urine Sodium 117 mmol/L (Not Establ.)
[2019-09-30] MEDS: 0.9% Saline Lock 10 ML Syringe IV (17:43)
[2019-09-30] MEDS: 0.9% Normal Saline 1,000 ML 125 ML IV (17:43)
[2019-09-30 17:47] LABS: Urine Chloride 119 mmol/L (Not Establ.)
[2019-09-30] MEDS: azaTHIOprine 50 MG Tablet 100 MG PO (21:33)
[2019-09-30] MEDS: Labetalol 200 MG Tablet PO (21:34)
[2019-09-30 21:42] LABS: Potassium 5.6 mmol/L (3.5-5.1)
[2019-09-30] MEDS: MELATONIN 3 MG TABLET PO (23:01)
[2019-10-01] VITALS (8 sets, daily range): BP systolic 122–144; BP diastolic 53–76; PULSE 46–68; RESP 18; TEMP 36.8–37.3; O2SAT 95–96
[2019-10-01] MEDS: Dextrose 50%-Water 25 GM/50 ML DISP.SYRIN IV (01:38)
[2019-10-01] MEDS: Sodium Polystyrene Sulfonate 15 GM/60 ML UDC 30 GM PO ×2 (01:41→13:38)
[2019-10-01] MEDS: Insulin Lispro 5 UNIT in Syringe 0 ML 6 UNIT IV (01:44)
[2019-10-01] MEDS: 0.9% Normal Saline 1,000 ML 125 ML IV ×2 (01:45→09:26)
[2019-10-01] MEDS: Polyethylene Glycol 3350 17 GM PACKET 34 GM PO (03:32)
[2019-10-01 07:22] LABS: Absolute Lymphocyte Count 0.46 X10^3/uL (0.83-4.51); Absolute Neutrophil Count 3.4 X10^3/uL (2.0-7.7); Basophil# 0.04 X10^3/uL; Basophil% 0.7 % (0-1); Eosinophil# 0.24 X10^3/uL; Eosinophils% 4.4 % (0-5); Hemoglobin 11.1 g/dL (13.0-16.5); Lymphocyte # 0.46 X10^3/ul (4.0); Lymphocyte % 8.4 % (19-41); Mean Corp Hgb Conc 32.6 g/dL (32-36); Mean Corpuscular Hgb 36.3 pg (27.0-32.0); Mean Corpuscular Volume 111.1 fL (80-94); Mean Platelet Vol. 10.1 fl (6.2-12.0); Monocyte# 1.29 X10^3/uL; Monocyte% 23.5 % (0-10); NRBC Flagged by Analyzer 0 % (0-5); Neutrophil # 3.44 X10^3/uL (2.7-7.7); Neutrophil % 62.6 % (47-70); POSITIVE DIFFERENTIAL YES; Platelet Count 240 K/mm3 (150-450); RBC Distribution Width CV 14.8 % (11.6-14.6); RBC Distribution Width SD 61.1 fl (35.1-43.9); Red Blood Count 3.06 M/mm3 (4.6-6.2); White Blood Count 5.5 K/mm3 (4.4-11.0)
[2019-10-01 07:26] LABS: International Normalized Ratio 2.3
[2019-10-01 07:33] LABS: Differential Indicated SCAN CRITERIA MET
[2019-10-01 07:39] LABS: Anion Gap 8 (5-15); BUN 50 mg/dL (7-18); BUN/Creat Ratio 35.5 RATIO (10-20); Calcium,Total 8.7 mg/dL (8.5-10.1); Chloride 120 mmol/L (98-107); Creatinine, Serum 1.41 mg/dL (0.70-1.30); EST Glomerular Filtration Rate 54 mL/min (>60); Est Glom Filt Rate - Afr Amer 65 mL/min (>60); Estimated Creatinine Clearance 52.23 ml/min; Glucose 99 mg/dL (74-106); Potassium 4.9 mmol/L (3.5-5.1); Sodium Level 145 mmol/L (136-145)
[2019-10-01 07:53] LABS: Differential Comment SCANNED
--- NOTE | 2019-10-01 08:50 | NURSING ---
This RN taking over care at this time
[2019-10-01] MEDS: Aspirin 81 MG TAB.CHEW PO (09:25)
--- NOTE | 2019-10-01 11:51 | DCINST_ITS ---
- Discharge Diagnoses Current Active Problems: Current Active and Chronic Problems Ulcerative colitis (Chronic) Status post coronary artery bypass graft (Chronic) Acute kidney injury (nontraumatic) (Acute) Hyperkalemia (Acute) You will use the following diet at home:: Cardiac - low potassium diet Your food should be the consistency of: Regular Your liquids should be the consistency of: Regular/Thin Discharge Activity: Return to Normal Activity Weight Bearing Status: Weight bearing as tolerated Call your doctor if you observe: Chest pain, Increased palpitations (irregular heartbeat) Instructions: Hyperkalemia, Eating a Low Potassium Diet, Acute Kidney Failure Additional Instructions: lisinopril discontinued; keep well hydrated by drinking lots of water. Follow with PCP within one week for follow up BMP. Lisinopril discontinued permanently. Keep BP log at home to trend BP now lisinopril is discontinued. Show log to PCP to adjust BP medications as needed. Allergies/Adverse Reactions: Allergies amlodipine besylate [From Norvasc] Allergy (Verified 09/30/19 13:41) Unknown atorvastatin calcium [From Lipitor] Allergy (Verified 09/30/19 13:41) Unknown Sulfa (Sulfonamide Antibiotics) Allergy (Verified 09/30/19 13:41) Unknown Medications to take at Discharge Aspirin [Aspirin, Baby] 81 mg PO DAILY@0800 09/13/18 Furosemide [Lasix] 40 mg PO PRN PRN 09/13/18 Warfarin Sodium [Coumadin] 4 mg PO MOWEFR 09/13/18 Warfarin [Coumadin] 2 mg PO SUTUTHSA 09/13/18 Azathioprine [Imuran] 100 mg PO QHS 09/30/19 Labetalol [Trandate (Beta Ge)] 200 mg PO BID 09/30/19 [place]-3/Dha/Epa/Fish Oil [Fish Oil 1,000 mg Softgel] 1,000 mg PO DAILY 09/30/19 Rosuvastatin Calcium 5 mg PO MOWEFR 09/30/19 Primary Care Physician: Jah Ozuna [Primary Care Provider] - Please follow up with your Primary Care Physician in: one week Test Results: Test results from this visit will be discussed in further detail at your follow- up appointment, if applicable. Proposed Discharge Date: 10/01/19
--- NOTE | 2019-10-01 11:55 | DS.PCM_ITS ---
Discharge Date and Diagnosis - Problem List Patient Problems: Active and Suspected Problems Acute kidney injury (nontraumatic) (Acute) Hyperkalemia (Acute) Date of Admission: 09/30/19 - Primary Discharge Diagnosis Active and Suspected Problems Acute kidney injury (nontraumatic) (Acute) Hyperkalemia (Acute) - Secondary Discharge Diagnosis Chronic Problems Ulcerative colitis (Chronic) Status post coronary artery bypass graft (Chronic) Hyperlipidemia (Chronic) Hypertension (Chronic) Permanent atrial fibrillation (Chronic) Obstructive sleep apnea (Chronic) Coronary artery disease (Chronic) Hospital Course and Treatment Operations: None Summary of Care Provided: The patient is a 63 year old M [] Patient Problems: Active and Suspected Problems Acute kidney injury (nontraumatic) (Acute) Hyperkalemia (Acute) - Physical Exam Vitals/I&O's: Vital Signs Temp Pulse Resp BP Pulse Ox 98.8 F 63 18 122/76 H 96 10/01/19 09:23 10/01/19 09:23 10/01/19 09:23 10/01/19 09:23 10/01/19 09:23 Oxygen Delivery Method Room Air Weight: 234 lb 9.6 oz Body Mass Index (BMI) 34.6 Intake and Output for Last 24 Hours 09/29/19 09/30/19 10/01/19 23:59 23:59 23:59 Intake Total 1088.80 / 1088.80 1389.58 / 1389.58 Output Total 250 / 250 Balance 1088.80 / 1088.80 1139.58 / 1139.58 Laboratory Results 09/30/19 14:15: WBC 6.0, RBC 3.66 L, Hgb 13.3, Hct 40.4, MCV 110.4 H, MCH 36.3 H , MCHC 32.9, RDW Std Deviation 60.0 H, RDW Coeff of [place] 14.5, Plt Count 277, MPV 9.4 09/30/19 14:15: Sodium 142, Potassium 6.0 H*, Chloride 115 H, Carbon Dioxide 18.0 L, Anion Gap 9, BUN 63 H, Creatinine 2.14 H, Estim Creat Clear Calc 34.41, Est GFR (MDRD) Af Amer 40 L, Est GFR (MDRD) Non-Af 33 L, BUN/Creatinine Ratio 29.4 H, Glucose 102, Calcium 9.4 09/30/19 14:15: PT 21.3 H, INR 1.9 09/30/19 15:18: Urine Color Yellow, Urine Clarity Clear, Urine pH 6.0, Ur Specific [place] 1.015, Urine Protein Negative, Urine Glucose (UA) Normal, Urine Ketones 5 H, Urine Occult Blood Negative, Urine Nitrite Negative, Urine Bilirubin Negative, Urine Urobilinogen Normal, Ur Leukocyte Esterase Negative, Urine RBC 0 SEEN, Urine WBC 0 SEEN, Ur Squamous Epith Cells 0-5 SEEN, Urine Bacteria 0 SEEN, Urine Mucus 0 SEEN 09/30/19 16:50: Urine Creatinine 61.70 09/30/19 16:50: Urine Chloride 119 09/30/19 16:50: Ur Random Sodium 117 09/30/19 21:17: Potassium 5.6 H 10/01/19 06:20: WBC 5.5, RBC 3.06 L, Hgb 11.1 L, Hct 34.0 L, MCV 111.1 H, MCH 36.3 H, MCHC 32.6, RDW Std Deviation 61.1 H, RDW Coeff of [place] 14.8 H, Plt Count 240, MPV 10.1, Immature Gran % (Auto) 0.400, Neut % (Auto) 62.6, Lymph % (Auto) 8.4 L, [place] % (Auto) 23.5 H, Eos % (Auto) 4.4, Baso % (Auto) 0.7, Absolute Neuts (auto) 3.4, Absolute Lymphs (auto) 0.46 L, Nucleated RBC % 0, Differential Comment SCANNED 10/01/19 06:20: PT 25.0 H, INR 2.3 10/01/19 06:20: Sodium 145, Potassium 4.9, Chloride 120 H, Carbon Dioxide 17.0 L , Anion Gap 8, BUN 50 H, Creatinine 1.41 H, Estim Creat Clear Calc 52.23, Est GFR (MDRD) Af Amer 65, Est GFR (MDRD) Non-Af 54 L, BUN/Creatinine Ratio 35.5 H, Glucose 99, Calcium 8.7 Current Medications Acetaminophen (Tylenol) 650 mg PO Q6H PRN PRN PRN Reason: Pain Score 1-3/Temp > 100.7 F Aspirin (Aspirin, Baby) 81 mg PO DAILY@0800 [facility] Last Admin: 10/01/19 09:25 Dose: 81 mg Documented by: Azathioprine (Imuran) 100 mg PO QHS [facility] Last Admin: 09/30/19 21:33 Dose: 100 mg Documented by: Hydralazine HCl (Apresoline Iv) 10 mg IV Q8H PRN PRN PRN Reason: for SBP>160 Sodium Chloride () 1,000 mls @ 125 mls/hr IV .Q8H [facility] Last Admin: 10/01/19 09:26 Dose: 125 mls/hr Documented by: Melatonin (Melatonin) 3 mg PO QHS PRN PRN PRN Reason: INSOMNIA Last Admin: 09/30/19 23:01 Dose: 3 mg Documented by: Ondansetron HCl (Zofran) 4 mg IV Q8H PRN PRN PRN Reason: NAUSEA/VOMITING Polyethylene Glycol (Miralax) 34 gm PO X1 PRN PRN Reason: Bowel Movement Rosuvastatin Calcium (Crestor) 5 mg PO MoWeFr [facility] Sodium Chloride () 10 - 40 ml IV UD PRN PRN Reason: SALINE FLUSH Last Admin: 09/30/19 17:43 Dose: 10 ml Documented by: Warfarin Sodium (Coumadin (Pbkc)) 2 mg PO SuTuThSa@1700 [facility] Warfarin Sodium (Coumadin (Pbkc)) 4 mg PO MoWeFr@1700 [facility] Last Admin: 09/30/19 17:50 Dose: 4 mg Documented by: Discharge Activity: Return to Normal Activity Weight Bearing Status: Weight bearing as tolerated Call your doctor if you observe: Chest pain, Increased palpitations (irregular heartbeat) Home Medications: Medications to take at Discharge Aspirin [Aspirin, Baby] 81 mg PO DAILY@0800 09/13/18 Furosemide [Lasix] 40 mg PO PRN PRN 09/13/18 Warfarin Sodium [Coumadin] 4 mg PO MOWEFR 09/13/18 Warfarin [Coumadin] 2 mg PO SUTUTHSA 09/13/18 Azathioprine [Imuran] 100 mg PO QHS 09/30/19 Labetalol [Trandate (Beta Ge)] 200 mg PO BID 09/30/19 [place]-3/Dha/Epa/Fish Oil [Fish Oil 1,000 mg Softgel] 1,000 mg PO DAILY 09/30/19 Rosuvastatin Calcium 5 mg PO MOWEFR 09/30/19 Primary Care Physician: Jah Ozuna [Primary Care Provider] - Please follow up with your Primary Care Physician in: one week Patient Instructions: Acute Kidney Failure, Hyperkalemia, Eating a Low Potassium Diet Medical Necessity - Tobacco Use Smoking Status: Former smoker Tobacco Use: Cigarettes
[2019-10-01 12:39] LABS: Anion Gap 8 (5-15); BUN 42 mg/dL (7-18); Calcium,Total 8.9 mg/dL (8.5-10.1); Chloride 120 mmol/L (98-107); EST Glomerular Filtration Rate 64 mL/min (>60); Est Glom Filt Rate - Afr Amer 78 mL/min (>60); Estimated Creatinine Clearance 61.37 ml/min; Glucose 123 mg/dL (74-106); Potassium 5.3 mmol/L (3.5-5.1); Sodium Level 146 mmol/L (136-145)
--- NOTE | 2019-10-01 13:03 | PCM.PN.HOSP ---
Patient Problems: Active and Suspected Problems Acute kidney injury (nontraumatic) (Acute) Hyperkalemia (Acute) Reason for Visit: Patient seen and examined. He was admitted on account of hyperkalemia. He stable and has no complaints. Review of systems otherwise negative. Labs and vitals reviewed. Potassium had come down to 4.9. Review of systems otherwise negative. Vitals/I&O's: Vital Signs Temp Pulse Resp BP Pulse Ox 98.8 F 63 18 122/76 H 96 10/01/19 09:23 10/01/19 09:23 10/01/19 09:23 10/01/19 09:23 10/01/19 09:23 Oxygen Delivery Method Room Air Weight: 234 lb 9.6 oz Body Mass Index (BMI) 34.6 Intake and Output for Last 24 Hours 09/29/19 09/30/19 10/01/19 23:59 23:59 23:59 Intake Total 1088.80 / 1088.80 1389.58 / 1389.58 Output Total 250 / 250 Balance 1088.80 / 1088.80 1139.58 / 1139.58 General: Alert, Oriented x3, Cooperative, No apparent distress HEENT: Atraumatic, PERRLA, EOMI, Normocephalic Oral: Moist Mucosa Neck: Supple, No JVD, Negative Carotid Bruits Lungs: Clear to auscultation, Normal air movement, No rhonchi, No wheeze, No rales Cardiovascular: Regular rate, Regular Rhythm, Normal S1, Normal S2, No murmurs Abdomen: Bowel Sounds Present, Soft, Non Tender, Non-Distended, No Hepato-splenomegaly Extremities: No clubbing, No cyanosis, No edema, Capillary Refill Less than 3 Seconds Skin: No rashes, No breakdown Musculoskeletal: No Tenderness to Palpation of Joints or Extremities Lymphatic: No Cervical, Supraclavicular, or Inguinal Adenopathy Neurological: Cranial nerves II-XII grossly intact, Neuro grossly intact, Motor Exam 5/5 strength throughout Psych/Mental Status: Normal Affect, Appropriate, Alert and oriented to time, place, person, mood and affect Laboratory Results 09/30/19 14:15: WBC 6.0, RBC 3.66 L, Hgb 13.3, Hct 40.4, MCV 110.4 H, MCH 36.3 H, MCHC 32.9, RDW Std Deviation 60.0 H, RDW Coeff of [place] 14.5, Plt Count 277, MPV 9.4 09/30/19 14:15: Sodium 142, Potassium 6.0 H*, Chloride 115 H, Carbon Dioxide 18.0 L, Anion Gap 9, BUN 63 H, Creatinine 2.14 H, Estim Creat Clear Calc 34.41, Est GFR (MDRD) Af Amer 40 L, Est GFR (MDRD) Non-Af 33 L, BUN/Creatinine Ratio 29.4 H, Glucose 102, Calcium 9.4 09/30/19 14:15: PT 21.3 H, INR 1.9 09/30/19 15:18: Urine Color Yellow, Urine Clarity Clear, Urine pH 6.0, Ur Specific [place] 1.015, Urine Protein Negative, Urine Glucose (UA) Normal, Urine Ketones 5 H, Urine Occult Blood Negative, Urine Nitrite Negative, Urine Bilirubin Negative, Urine Urobilinogen Normal, Ur Leukocyte Esterase Negative, Urine RBC 0 SEEN, Urine WBC 0 SEEN, Ur Squamous Epith Cells 0-5 SEEN, Urine Bacteria 0 SEEN, Urine Mucus 0 SEEN 09/30/19 16:50: Urine Creatinine 61.70 09/30/19 16:50: Urine Chloride 119 09/30/19 16:50: Ur Random Sodium 117 09/30/19 21:17: Potassium 5.6 H 10/01/19 06:20: WBC 5.5, RBC 3.06 L, Hgb 11.1 L, Hct 34.0 L, MCV 111.1 H, MCH 36.3 H, MCHC 32.6, RDW Std Deviation 61.1 H, RDW Coeff of [place] 14.8 H, Plt Count 240, MPV 10.1, Immature Gran % (Auto) 0.400, Neut % (Auto) 62.6, Lymph % (Auto) 8.4 L, [place] % (Auto) 23.5 H, Eos % (Auto) 4.4, Baso % (Auto) 0.7, Absolute Neuts (auto) 3.4, Absolute Lymphs (auto) 0.46 L, Nucleated RBC % 0, Differential Comment SCANNED 10/01/19 06:20: PT 25.0 H, INR 2.3 10/01/19 06:20: Sodium 145, Potassium 4.9, Chloride 120 H, Carbon Dioxide 17.0 L, Anion Gap 8, BUN 50 H, Creatinine 1.41 H, Estim Creat Clear Calc 52.23, Est GFR (MDRD) Af Amer 65, Est GFR (MDRD) Non-Af 54 L, BUN/Creatinine Ratio 35.5 H, Glucose 99, Calcium 8.7 10/01/19 11:58: Sodium 146 H, Potassium 5.3 H, Chloride 120 H, Carbon Dioxide 18.0 L, Anion Gap 8, BUN 42 H, Creatinine 1.20, Estim Creat Clear Calc 61.37, Est GFR (MDRD) Af Amer 78, Est GFR (MDRD) Non-Af 64, BUN/Creatinine Ratio 35.0 H, Glucose 123 H, Calcium 8.9 Diagnostic Data Renal Ultrasound 09/30/19 16:23 IMPRESSION: Bilateral renal cysts as described above, otherwise normal ultrasound of the kidneys and visualized urinary bladder. Electronically Signed: Cynthia Michael MD at 4:06 EST , Service support , Current Medications Acetaminophen (Tylenol) 650 mg PO Q6H PRN PRN PRN Reason: Pain Score 1-3/Temp > 100.7 F Aspirin (Aspirin, Baby) 81 mg PO DAILY@0800 [facility] Last Admin: 10/01/19 09:25 Dose: 81 mg Documented by: Azathioprine (Imuran) 100 mg PO QHS [facility] Last Admin: 09/30/19 21:33 Dose: 100 mg Documented by: Hydralazine HCl (Apresoline Iv) 10 mg IV Q8H PRN PRN PRN Reason: for SBP>160 Sodium Chloride () 1,000 mls @ 125 mls/hr IV .Q8H [facility] Last Admin: 10/01/19 09:26 Dose: 125 mls/hr Documented by: Melatonin (Melatonin) 3 mg PO QHS PRN PRN PRN Reason: INSOMNIA Last Admin: 09/30/19 23:01 Dose: 3 mg Documented by: Ondansetron HCl (Zofran) 4 mg IV Q8H PRN PRN PRN Reason: NAUSEA/VOMITING Polyethylene Glycol (Miralax) 34 gm PO X1 PRN PRN Reason: Bowel Movement Rosuvastatin Calcium (Crestor) 5 mg PO MoWeFr [facility] Sodium Chloride () 10 - 40 ml IV UD PRN PRN Reason: SALINE FLUSH Last Admin: 09/30/19 17:43 Dose: 10 ml Documented by: Sodium Polystyrene Sulfonate (Kayexalate) 30 gm PO X1 ONE Stop: 10/01/19 13:03 Warfarin Sodium (Coumadin (Pbkc)) 2 mg PO SuTuThSa@1700 [facility] Warfarin Sodium (Coumadin (Pbkc)) 4 mg PO MoWeFr@1700 [facility] Last Admin: 09/30/19 17:50 Dose: 4 mg Documented by: STROKE Vital Signs/Narrative: Vital Signs Temp Pulse Resp BP Pulse Ox 10/01/19 09:23 98.8 F 63 18 122/76 H 96 Medical Necessity - Tobacco Use Smoking Status: Former smoker Tobacco Use: Cigarettes Assessment/Plan All Active Problems Acute kidney injury (nontraumatic) (Acute) Hyperkalemia (Acute) 1. SWETHA precipitating cause is not clear Cr was 2.14 on admission, with baseline of 0.97 from March 2016 Cr is down to 1.2 today with hydration. will dc IVF. USG of kidneys and bladder showed bilateral renal cysts but otherwise normal ultrasound. FeNA was 2.9, indicating intrinsic renal pathology will monitor, as it has resolved. 2. Hyperkalemia Potassium was 6 on admission, and went down to 4.9. Is now 5.3 will give another dose of kayexalate repeat BMP tomorrow morning 3. Non-anion gap metabolic acidosis: Bicarb is 18 now with anion gap of 8. This is likely due to SWETHA. Will monitor. 4. CAD s/p CABG; on aspirin, statin and labetalol. Lisinopril discontinued o/a of hyperkalemia 5. Hypertension: On labetalol. Lisinopril on hold. IV hydralazine PRN. 6. Hyperlipidemia: On statin. 7. Chronic A. fib: On labetalol. On Coumadin. INR today is 2.3. 8. Ulcerative colitis: Stable. On Imuran DVT prophylaxis: On Coumadin. INR is therapeutic. Code Visit Inpatient E&M: 92928 Subs Hosp L2
--- NOTE | 2019-10-01 15:30 | CM.UR ---
RN CM Assessment Introduced role of RN CM to patient. Patient is alert and able to participate in RN CM Assessment. Care providers, pharmacy, and demographics verified. at bedside. Presentation: PCP sent to ER d/t abnormal labs Admit Dx: Hyperkalemia, SWETHA Re-Admit: no Barriers/Issues: none PCP: Sulma Specialists: Administrative Library Assistant. Was seeing Merna but had new referral to Dr. [place]. Has new patient appt scheduled for Nov 2019 Preferred Pharmacy: [facility] Insurance: [facility]/ MMO Rx Benefit: Yes LNOK: , Gale LW/HPOA: none, declined additional information. States son can do for him when he is ready. Living Arrangements: Lives with in 2 story home, 2 steps in and has 2nd floor bedroom. Has 1st floor bathroom. Denies any issues with accessibility ADL?s: Independent Transportation: self DME: CPAP from [facility] co: no preference HHC: None SNF: None Goal: Home DC PLAN: Home, no needs anticipated. Gurpreet Franco RN, CCM.
[2019-10-01] MEDS: azaTHIOprine 50 MG Tablet 100 MG PO (21:37)
[2019-10-01] MEDS: Zolpidem Tartrate 5 MG Tablet PO (22:44)
[2019-10-02 00:40] VITALS: BP 146/75; PULSE 53; RESP 16; TEMP 36.7; O2SAT 97
[2019-10-02 02:56] VITALS: PULSE 68
[2019-10-02 04:45] VITALS: BP 111/52; PULSE 56; RESP 20; TEMP 36.9; O2SAT 96
[2019-10-02 07:00] VITALS: PULSE 42
[2019-10-02 08:21] LABS: Anion Gap 6 (5-15); BUN 23 mg/dL (7-18); BUN/Creat Ratio 20.9 RATIO (10-20); Calcium,Total 8.8 mg/dL (8.5-10.1); Chloride 117 mmol/L (98-107); EST Glomerular Filtration Rate 71 mL/min (>60); Est Glom Filt Rate - Afr Amer 86 mL/min (>60); Estimated Creatinine Clearance 66.95 ml/min; Glucose 105 mg/dL (74-106); Potassium 4.6 mmol/L (3.5-5.1); Sodium Level 145 mmol/L (136-145)
[2019-10-02 08:31] VITALS: BP 142/84; PULSE 74; RESP 18; TEMP 36.9; O2SAT 98
--- NOTE | 2019-10-02 09:46 | DS.PCM_ITS ---
Discharge Date and Diagnosis Date of Admission: 09/30/19 Date of Discharge: 10/02/19 - Primary Discharge Diagnosis Active and Suspected Problems Acute kidney injury (nontraumatic) (Acute) Hyperkalemia (Acute) - Secondary Discharge Diagnosis Chronic Problems Ulcerative colitis (Chronic) Status post coronary artery bypass graft (Chronic) Hyperlipidemia (Chronic) Hypertension (Chronic) Permanent atrial fibrillation (Chronic) Obstructive sleep apnea (Chronic) Coronary artery disease (Chronic) Hospital Course and Treatment Imaging Results: Diagnostic Data Renal Ultrasound 09/30/19 16:23 IMPRESSION: Bilateral renal cysts as described above, otherwise normal ultrasound of the kidneys and visualized urinary bladder. Electronically Signed: Cynthia Michael MD at 4:06 EST , Service support , Operations: None Procedures: None Summary of Care Provided: The patient is a 63 year old M with an extensive PMH as listed. He was admitted via the Ed on 09/30/19 after his PCP called him and told him to come to the ED o/a of abnormal labs. Blood work done the day before admission showed elevated potassium of 5.8. Repeat potasssiumw as 6.8, with elevated creatinine of >2, so he was asked to come to the ED. He had no complaints and denied lightheadedness, dizziness or palptitations. Review of systems was otherwise negative. He denied taking any large quantities of coconut water, oranges or bananas. He was on lisinopril, which he had been compliant with, and had only been on lasix intermittently.EKG done on admission showed chronic afib which was rate controlled. he was admitted and managed for SWETHA and hyperkalemia. He was hydrated with IVF, and given sodium kayexalate. Cr trended down gradually to a shilo of 1.1. Potassium also trended down gradually to 4.6. Lisinopril was discontinued permanently. BP remained well controlled on labetalol. He remained stable and was discharged home on . He is to follow up with his PCP within one week for repeat BMP. Patient seen and examined prior to discharge. He had no complaints. Review of systems was otherwise negative. Labs and vitals reviewed. Home meds reviewed and reconciled. O/E: Vital Signs Height 5 ft 9 in Weight: 234 lb 9.6 oz Weight in Pounds 234.6 lbs Pulse Ox 98 Temperature 98.5 F Pulse Rate 74 Respiratory Rate 18 Blood Pressure 142/84 Blood Pressure Position Semi-Fowlers [] General: Alert, Oriented x3, Cooperative, No apparent distress HEENT: Atraumatic, PERRLA, EOMI, Normocephalic Oral: Moist Mucosa Neck: Supple, No JVD, Negative Carotid Bruits Lungs: Clear to auscultation, Normal air movement, No rhonchi, No wheeze, No rales Cardiovascular: Regular rate, Regular Rhythm, Normal S1, Normal S2, No murmurs Abdomen: Bowel Sounds Present, Soft, Non Tender, Non-Distended, No Hepato- splenomegaly Extremities: No clubbing, No cyanosis, No edema, Capillary Refill Less than 3 Seconds Skin: No rashes, No breakdown Musculoskeletal: No Tenderness to Palpation of Joints or Extremities Lymphatic: No Cervical, Supraclavicular, or Inguinal Adenopathy Neurological: Cranial nerves II-XII grossly intact, Neuro grossly intact, Motor Exam 5/5 strength throughout Psych/Mental Status: Normal Affect, Appropriate, Alert and oriented to time, place, person, mood and affect Plan as above. - Physical Exam Vitals/I&O's: Vital Signs Temp Pulse Resp BP Pulse Ox 98.5 F 74 18 142/84 H 98 10/02/19 08:31 10/02/19 08:31 10/02/19 08:31 10/02/19 08:31 10/02/19 08:31 Oxygen Delivery Method Room Air Weight: 234 lb 9.6 oz Body Mass Index (BMI) 34.6 Intake and Output for Last 24 Hours 09/30/19 10/01/19 10/02/19 23:59 23:59 23:59 Intake Total 1088.80 / 1088.80 3054.58 / 3054.58 100 / 100 Output Total 250 / 250 Balance 1088.80 / 1088.80 2804.58 / 2804.58 100 / 100 Laboratory Results 10/01/19 11:58: Sodium 146 H, Potassium 5.3 H, Chloride 120 H, Carbon Dioxide 18.0 L, Anion Gap 8, BUN 42 H, Creatinine 1.20, Estim Creat Clear Calc 61.37, Est GFR (MDRD) Af Amer 78, Est GFR (MDRD) Non-Af 64, BUN/Creatinine Ratio 35.0 H , Glucose 123 H, Calcium 8.9 10/02/19 07:50: Sodium 145, Potassium 4.6, Chloride 117 H, Carbon Dioxide 22.0, Anion Gap 6, BUN 23 H, Creatinine 1.10, Estim Creat Clear Calc 66.95, Est GFR (MDRD) Af Amer 86, Est GFR (MDRD) Non-Af 71, BUN/Creatinine Ratio 20.9 H, Glucose 105, Calcium 8.8 Current Medications Acetaminophen (Tylenol) 650 mg PO Q6H PRN PRN PRN Reason: Pain Score 1-3/Temp > 100.7 F Aspirin (Aspirin, Baby) 81 mg PO DAILY@0800 [facility] Last Admin: 10/02/19 09:05 Dose: Not Given Documented by: Azathioprine (Imuran) 100 mg PO QHS [facility] Last Admin: 10/01/19 21:37 Dose: 100 mg Documented by: Hydralazine HCl (Apresoline Iv) 10 mg IV Q8H PRN PRN PRN Reason: for SBP>160 Melatonin (Melatonin) 3 mg PO QHS PRN PRN PRN Reason: INSOMNIA Last Admin: 09/30/19 23:01 Dose: 3 mg Documented by: Ondansetron HCl (Zofran) 4 mg IV Q8H PRN PRN PRN Reason: NAUSEA/VOMITING Polyethylene Glycol (Miralax) 34 gm PO X1 PRN PRN Reason: Bowel Movement Rosuvastatin Calcium (Crestor) 5 mg PO MoWeFr [facility] Sodium Chloride () 10 - 40 ml IV UD PRN PRN Reason: SALINE FLUSH Last Admin: 09/30/19 17:43 Dose: 10 ml Documented by: Warfarin Sodium (Coumadin (Pbkc)) 2 mg PO SuTuThSa@1700 [facility] Last Admin: 10/01/19 16:54 Dose: 2 mg Documented by: Warfarin Sodium (Coumadin (Pbkc)) 4 mg PO MoWeFr@1700 [facility] Last Admin: 09/30/19 17:50 Dose: 4 mg Documented by: Zolpidem Tartrate (Ambien (Generic)) 5 mg PO QHS PRN PRN PRN Reason: INSOMNIA Last Admin: 10/01/19 22:44 Dose: 5 mg Documented by: Discharge Diet: Low fat/ Low Cholesterol - low potassium diet Discharge Activity: Return to Normal Activity Weight Bearing Status: Weight bearing as tolerated Call your doctor if you observe: Chest pain, Increased palpitations (irregular heartbeat) Home Medications: Medications to take at Discharge Aspirin [Aspirin, Baby] 81 mg PO DAILY@0800 09/13/18 Furosemide [Lasix] 40 mg PO PRN PRN 09/13/18 Warfarin Sodium [Coumadin] 4 mg PO MOWEFR 09/13/18 Warfarin [Coumadin] 2 mg PO SUTUTHSA 09/13/18 Azathioprine [Imuran] 100 mg PO QHS 09/30/19 Labetalol [Trandate (Beta Ge)] 200 mg PO BID 09/30/19 [place]-3/Dha/Epa/Fish Oil [Fish Oil 1,000 mg Softgel] 1,000 mg PO DAILY 09/30/19 Rosuvastatin Calcium 5 mg PO MOWEFR 09/30/19 Primary Care Physician: Jah Ozuna [Primary Care Provider] - Please follow up with your Primary Care Physician in: one week Patient Instructions: Acute Kidney Failure, Hyperkalemia, Eating a Low Potassium Diet Disposition: Home Minutes spent on discharge:: 35 Patient Condition:: Stable Medical Necessity - Tobacco Use Smoking Status: Former smoker Tobacco Use: Cigarettes Meaningful Use Info Meaningful Use Diagnoses (Choose all that apply): None applicable Code Visit Inpatient E&M: 77645 Disch Hosp
--- NOTE | 2019-10-03 15:52 | CASEMGMT ---
[facility] DC PHONE CALL DC DATE: 10.02.19 DC Disposition: Home Diagnosis on Discharge: SWETHA LACE/STRATA: 08/04 Attempted call. No answer. Breana EDMONDN RN ACM
== END 2019-10-02 09:46 | disposition home or self-care (01) | DRG 683 ==
LOC: ED 15:18 → PCU 15:44
PROVIDERS: Admitting Provider Hospitalist; Emergency Provider Emergency Medicine; Family Provider Family Medicine; Referring Provider Hospitalist; Visit Provider Student in an Organized Health Care Education/Training Program
DX: N17.9 Acute kidney failure, unspecified (principal); E87.2 Acidosis; K51.90 Ulcerative colitis, unspecified, without complications; I48.20 Chronic atrial fibrillation, unspecified; E87.5 Hyperkalemia; I25.10 Atherosclerotic heart disease of native coronary artery without angina pectoris; E78.5 Hyperlipidemia, unspecified; I10 Essential (primary) hypertension; G47.33 Obstructive sleep apnea (adult) (pediatric); Z87.891 Personal history of nicotine dependence; Z95.1 Presence of aortocoronary bypass graft; Z79.899 Other long term (current) drug therapy; Z79.01 Long term (current) use of anticoagulants
CPT/HCPCS: 36415; 76770; 80048; 81001; 82436; 82570; 84132; 84300; 85025; 85027; 85610; 93005; 94640; 99284; J7030; A4216

== ENCOUNTER → 2019-12-21 10:34 | Outpatient (CLI) | payer MEDICARE, OTHER, SELFPAY ==
[2019-12-21 10:05] VITALS: BMI 34.0
--- NOTE | 2019-12-21 10:40 | VDLE_ITS ---
Reason For Study: EDEMA RIGHT LEFT CFV is compressible, spontaneous, phasic, CFV is compressible, spontaneous, phasic, competent and demonstrates normal competent, and demonstrates normal augmentation. augmentation. FV is compressible, spontaneous, phasic, FV is compressible, spontaneous, phasic, competent and demonstrates normal competent and demonstrates normal augmentation. augmentation. POP V is compressible, spontaneous, phasic, POP V is compressible, spontaneous, phasic, competent and demonstrates normal competent and demonstrates normal augmentation. augmentation. T/P Trunk is compressible. T/P Trunk is compressible. PTV is compressible. PTV is compressible. RT PerV is compressible. LT PerV is compressible. LEFT and RT GSV has been harvested for CABG. Procedure Exam performed in department. A preliminary report was called and/or faxed to DR OZUNA. Interpretation Summary Deep veins of the lower extremities are bilaterally patent and compressible segmentally. There is no evidence of deep vein thrombosis on either side. Valvular competence appears intact within the proximal deep venous systems bilaterally. The great saphenous veins are absent bilaterally, having been previously harvested. Ordering Physician: Jah Ozuna Referring Physician: Jah Ozuna Performed By: Venice Vides, MELO, RVT
== END ==
PROVIDERS: Referring Provider Family Medicine; Visit Provider Family Medicine
DX: R60.0 Localized edema (principal)
CPT/HCPCS: 93970

== ENCOUNTER → 2019-12-26 09:23 | Outpatient (CLI) | payer MEDICARE, OTHER, SELFPAY ==
[2019-12-21 10:05] VITALS: BMI 34.0
[2019-12-26 11:06] LABS: International Normalized Ratio 2.7; Prothrombin Time (Protime)PT. 28.9 SECONDS (11.7-14.9)
== END ==
PROVIDERS: Visit Provider Family Medicine
DX: I48.20 Chronic atrial fibrillation, unspecified (principal)
CPT/HCPCS: 85610

== ENCOUNTER → 2019-12-29 | Outpatient (CLI) | payer MEDICARE, OTHER, SELFPAY ==
[2019-12-21 10:05] VITALS: BMI 34.0
[2019-12-29 13:24] LABS: International Normalized Ratio 3.1; Prothrombin Time (Protime)PT. 32.4 SECONDS (11.7-14.9)
== END | disposition home or self-care (01) ==
LOC: LABSPEC 12:28
PROVIDERS: Referring Provider Family Medicine; Visit Provider Family Medicine
DX: I48.20 Chronic atrial fibrillation, unspecified (principal)
CPT/HCPCS: 85610

== ENCOUNTER → 2020-03-08 08:00 | Outpatient (CLI) | payer MEDICARE, OTHER, SELFPAY ==
[2020-03-07 10:00] VITALS: BMI 35.4
[2020-03-08 09:31] LABS: AST(SGOT) 20 U/L (15-37); Alanine Aminotransfer ALT/SGPT 13 U/L (16-61); Albumin, Serum 3.6 g/dL (3.2-5.0); Alkaline Phosphatase 183 U/L (45-117); Bilirubin, Direct 0.97 mg/dL (0.00-0.30); Cholesterol 133 mg/dL (200); Globulin 4.1 g/dL (2.2-4.2); High Density Lipoprotein 32 mg/dL; Protein, Total 7.7 g/dL (6.4-8.2); Triglycerides 107 mg/dL; Very Low Density Lipoprotein 21 mg/dL (5-40)
== END ==
PROVIDERS: Referring Provider Internal Medicine Cardiovascular Disease; Visit Provider Internal Medicine Cardiovascular Disease
DX: E78.00 Pure hypercholesterolemia, unspecified (principal)
CPT/HCPCS: 36415; 80061; 80076

== ENCOUNTER → 2020-03-15 05:58 | Outpatient (CLI) | payer MEDICARE, OTHER, SELFPAY ==
[2020-03-07 10:00] VITALS: BMI 35.4
--- NOTE | 2020-03-15 05:59 | ECHOD_ITS ---
Reason For Study: CAD Procedure This was a 2D Doppler, Color Flow transthoracic echocardiogram. The exam was of adequate technical quality. Exam performed in department. Left Ventricle Mildly dilated left ventricle. D shaped septum in systole and diastole. Left ventricular systolic function is normal. The estimated ejection fraction is 55 %. Septal bounce. Unable to assess diastolic dysfunction. No regional wall motion abnormalities noted. Right Ventricle Severely dilated right ventricle. Moderately severe global right ventricular systolic dysfunction. Atria The left atrium is severely enlarged. The right atrium is severely enlarged. No doppler evidence for ASD. Mitral Valve There is mild mitral annular calcification. Mild mitral valve prolapse. Moderate (2+) eccentric mitral valve insufficiency. Tricuspid Valve Normal tricuspid valve. Moderately severe (3+) tricuspid valve insufficiency. Right ventricular systolic pressure estimated to be 48 mmHg. Aortic Valve Trisinus/trileaflet aortic valve. Mild focal aortic valve thickening. Pulmonic Valve Normal pulmonic valve. Mild (1+) pulmonic valve insufficiency. Great Vessels Mildly dilated aortic root. Pericardium/Pleural No pericardial effusion. MMode/2D Measurements & Calculations LVIDd: 5.9 cm IVSd: 0.77 cm Ao root diam: 4.2 cm LVIDs: 4.2 cm LVPWd: 0.85 cm FS: 28.6 % LAV(MOD-bp): 130.3 ml LA A4 area: 31.8 cm2 LA dimension(2D): 6.9 cm LAV(MOD-bp) Indexed: 60.1 ml/m2 LAV(MOD-sp2): 150.5 ml LAV(MOD-sp4): 92.4 ml RA A4 area: 40.6 cm2 Time Measurements MV dec time: 0.14 sec Doppler Measurements & Calculations MV E max terell: 159.1 cm/sec Ao V2 max: 131.4 cm/sec LV V1 max: 73.7 cm/sec Ao max P.9 mmHg LV V1 max P.2 mmHg PA V2 max: 103.3 cm/sec PI end-d terell: 197.0 cm/sec TR max terell: 285.8 cm/sec TR max P.7 mmHg Interpretation Summary Mildly dilated left ventricle. Left ventricular systolic function is normal. The estimated ejection fraction is 55 %. D shaped septum in systole and diastole. Septal bounce. Severely dilated right ventricle. Moderately severe global right ventricular systolic dysfunction. The left atrium is severely enlarged. The right atrium is severely enlarged. There is mild mitral annular calcification. Mild mitral valve prolapse. Moderate (2+) eccentric mitral valve insufficiency. Moderately severe (3+) tricuspid valve insufficiency. Mild focal aortic valve thickening. Mild (1+) pulmonic valve insufficiency. Mildly dilated aortic root. Right ventricular systolic pressure estimated to be 48 mmHg. Unable to assess diastolic dysfunction. Ordering Physician: Miguel Washington Referring Physician: LEENA GUZMAN Performed By: Venice Vides, RDCS, RVT
--- NOTE | 2020-03-15 09:38 | STRESSREP ---
Stress Test Report Date: 03-15-2020 Procedure: Pharmacologic stress nuclear imaging study Indications: Atrial fibrillation; CAD; CABG Consent: Per the patient Procedure: The patient underwent pharmacologic (Regadenoson) evaluation with a peak heart rate of 106 beats per minute (68 %predicted maximal heart rate) and a peak blood pressure of 138/78 mmHg. The baseline ECG demonstrated atrial fibrillation; right bundle branch block. The peak pharmacologic ECG demonstrated no obvious ECG changes. There were occasional PVCs pretest, during infusion, and recovery. There was no complaint of chest discomfort during pharmacologic infusion or recovery. The examination was discontinued secondary to completion of protocol. Impression: 1. Pharmacologic (Regadenoson) evaluation 2. Peak pharmacologic ECG with no obvious ECG changes. 3. There were occasional PVCs pretest, during infusion, and recovery. 4. Nuclear images pending Myocardial perfusion imaging study: Technique: The patient was injected with 12.8 millicuries of technetium 99m Cardiolite and subsequently rest SPECT Cardiolite nuclear imaging was obtained in the horizontal long, vertical long, and short axis views. The patient underwent pharmacologic (Regadenoson) evaluation with a peak heart rate of 106 beats per minute (68 % percent predicted maximal heart rate) and a peak blood pressure of 138/78 mmHg. The patient was injected with 41.0 millicuries of technetium 99m Cardiolite and subsequently stress SPECT Cardiolite nuclear imaging was obtained in the horizontal long, vertical long, and short axis views. A gated Cardiolite study at peak stress was obtained. Interpretation: Rest and stress SPECT Cardiolite nuclear imaging status post realignment, normalization, and attenuation correction demonstrate relative uniform tracer uptake and myocardial perfusion appearing within normal limits. There is end systolic thickening and brightening. The gated Cardiolite study demonstrates myocardial thickening and inward wall motion. The reported LVEF is 54 %. Impression: 1. Rest and stress SPECT Cardiolite nuclear imaging demonstrate relative uniform tracer uptake and myocardial perfusion appearing within normal limits. 2. The gated Cardiolite study reports an LVEF of 54 %. This note was generated with [employer] software. It may contain incorrect words, spelling, and punctuation that were not noted in checking the note before signing.
== END ==
PROVIDERS: Referring Provider Internal Medicine Cardiovascular Disease; Visit Provider Internal Medicine Cardiovascular Disease
DX: I07.1 Rheumatic tricuspid insufficiency (principal); I25.10 Atherosclerotic heart disease of native coronary artery without angina pectoris; I34.0 Nonrheumatic mitral (valve) insufficiency; I48.21 Permanent atrial fibrillation; R60.9 Edema, unspecified; E78.00 Pure hypercholesterolemia, unspecified; I10 Essential (primary) hypertension; Z95.1 Presence of aortocoronary bypass graft
CPT/HCPCS: 78452; 93017; 93306; A9500; A4216; J2785

== ENCOUNTER → 2020-03-23 11:23 | Outpatient (CLI) | payer MEDICARE, OTHER, SELFPAY ==
[2020-03-07 10:00] VITALS: BMI 35.4
[2020-03-23 13:30] LABS: Anion Gap 5 (5-15); BUN 36 mg/dL (7-18); Calcium,Total 9.7 mg/dL (8.5-10.1); Chloride 97 mmol/L (98-107); Creatinine, Serum 1.06 mg/dL (0.70-1.30); EST Glomerular Filtration Rate 74 mL/min (>60); Est Glom Filt Rate - Afr Amer 90 mL/min (>60); Glucose 108 mg/dL (74-106); Potassium 3.5 mmol/L (3.5-5.1); Sodium Level 136 mmol/L (136-145)
== END ==
PROVIDERS: Referring Provider Internal Medicine Cardiovascular Disease; Visit Provider Internal Medicine Cardiovascular Disease
DX: I25.10 Atherosclerotic heart disease of native coronary artery without angina pectoris (principal); I34.0 Nonrheumatic mitral (valve) insufficiency; I51.7 Cardiomegaly; Z95.1 Presence of aortocoronary bypass graft
CPT/HCPCS: 36415; 80048